=== PATIENT | female | born 1945 | race Caucasian/White ===

== ENCOUNTER 2024-04-02 13:16 | Emergency (ER) | payer MEDICARE, MEDICAID, SELFPAY ==
[2024-04-02] VITALS (12 sets, daily range): BP systolic 93–143; BP diastolic 22–79; PULSE 76–102; RESP 13–16; TEMP 36.7–37.1; O2SAT 87–100; BMI 19.3
--- NOTE | 2024-04-02 13:30 | EKG_ITS ---
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
--- NOTE | 2024-04-02 13:30 | XR_ITS ---
Examination: CT cervical spine without contrast 2-D sagittal reconstructions 2-D coronal reconstructions 3-D reconstructions. Exam date and time:April 02, 2024 1355 hrs. Indications: Ground-level fall today with injury to the neck, neck pain CTDI:vol (mGy) 6.95 DLP: (mGycm) 140 Technique: Multiple 2 mm axial sections of the cervical spine have been obtained. The coronal and sagittal reconstructions have been obtained. 3-D reconstructions have been obtained. Low dose protocols were performed. One or more of the following dose reduction techniques were used; automated exposure control, adjustment of the mA and/or KV according to patient size, use of iterative reconstruction technique. Findings: Axial sections demonstrate intact base of the skull. C1 exhibit satisfactory relationship to the odontoid. No acute cervical vertebral body fracture seen. Alignment posterior spinous processes satisfactory. Impression: No acute cervical fracture. Acute sphenoid sinusitis
--- NOTE | 2024-04-02 13:30 | XR_ITS ---
Examination: CT brain head without contrast. 2-D sagittal coronal reconstructions Date and time of exam:April 02, 2024 1353 hrs. Indications: Ground-level fall today with injury to the head followed by head pain weakness CTDI: vol (mGy):40.7 DLP: (mGycm):1057 Technique: Multiple CT axial sections of the brain have been obtained, 5 mm slice thickness. Contrast has not been administered. 2-D sagittal, coronal reconstructions have been obtained Low dose protocols were performed. One or more of the following dose reduction techniques were used; automated exposure control, adjustment of the mA and/or KV according to patient size, use of iterative reconstruction technique. Findings: No significant ventricular enlargement. Intra-axial or extra-axial hemorrhage density is not seen. No mass effect or midline shift Basal cisterns are not remarkable. Fourth ventricle is midline. Cranial vault intact. Significant sinusitis Impression: Negative for acute hemorrhage, mass effect or midline shift
--- NOTE | 2024-04-02 13:30 | XR_ITS ---
Examination:Left hip AP, lateral, AP pelvis 3 views Technique: Hip AP lateral, AP pelvis, 3 views Exam date and time:April 02, 2024 1405 hrs. Indications: Patient fell today with injury to the left hip, left hip pain Findings: Limited study, the entire hip is not included on 2 of the films There is no true lateral view of the abdomen There is severe osteopenia and chronic appearing deformity of the left anterior pelvic rami but clinical correlation advised Impression: Limited study Severe osteopenia No definite acute left hip fracture Strongly recommend 1 day follow-up proper technique left hip films if pain persists.
--- NOTE | 2024-04-02 13:32 | PD.EDADULT ---
ED General RME/HPI General Chief complaint: Weakness Stated complaint: WEAKNESS Time Seen by Provider: 04/02/24 13:30 Arrival date/time: 04/02/24 13:16 CC: Decreased appetite decreased activity HPI patient presents the ER via EMS report hypotensive tachycardia hypoxemic however that when the patient is assessed the patient is complaining of left hip pain after a fall yesterday afternoon. Patient presents from assisted care facility. Related Data Home Medications ?Medication ?Instructions ?Recorded ?Confirmed donepezil 5 mg tablet 5 mg PO HS 10/01/22 08/30/23 fluticasone propionate 50 1 spray intranasal DAILY 10/01/22 08/30/23 mcg/actuation nasal spray,suspension quetiapine 100 mg tablet 100 mg PO HS 10/01/22 08/30/23 venlafaxine 150 mg 150 mg PO QDAY 10/01/22 08/30/23 capsule,extended release 24 hr oxycodone-acetaminophen 10 mg-325 1 tab PO Q8HR PRN Pain, Moderate 05/23/23 08/30/23 mg tablet famotidine 20 mg tablet 20 mg PO QAM 05/29/23 08/30/23 ipratropium 0.5 mg-albuterol 3 mg 3 ml inhalation TID 05/29/23 08/30/23 (2.5 mg base)/3 mL nebulization soln Allergies Allergy/AdvReac Type Severity Reaction Status Date / Time amitriptyline [From Elavil] Allergy Verified 10/22/23 16:29 fentanyl Allergy Verified 10/22/23 16:29 Review of Systems Review of Systems Narrative Review of Systems: GEN: No fever, no chills, no weight loss EYES: No discharge, no visual changes, no pain HEENT: No ear pain, no congestion, no sore throat PULM: No shortness of breath, no cough, no congestion CV: No chest pain, no dyspnea on exertion, no palpitations GI: No nausea, no vomiting, no diarrhea, no pain, no constipation : No frequency, no urgency, no dysuria MUSC/SKEL: No joint pain, no back pain SKIN: No rash PSYCH: No hallucinations, no depression HEME/LYMPH: No easy bleeding or bruising tendencies NEURO: + weakness, no headache Past Medical History Past Medical History NEUROLOGIC: Positive Dementia; Negative Seizures CARDIAC: Negative Cardiac Disorders or Congestive Heart Failure RESPIRATORY: Negative Chronic Obstructive Pulmonary Disease (COPD) or Asthma GASTROINTESTINAL: Positive Gastrointestinal Disorders GENITOURINARY: Negative Renal Disease ENDOCRINE: Negative Endocrine Disorders, Diabetes Mellitus Type 1 or Diabetes Mellitus Type 2 HEMATOLOGIC: Positive Anemia; Negative Sickle Cell Disease PSYCHO/SOCIAL: Positive Schizophrenia and Bipolar Disorder OTHER HISTORY: Negative Blood Transfusions, Blood Transfusion Reaction or Anesthesia Reactions Family History FAMILY HISTORY: Negative Family Cardiac Disorders Social History SMOKING STATUS: Never smoker ED Exam Narrative Physical exam: [General: Thin, deconditioned, but not emaciated. In mild discomfort but not in any acute distress Head normocephalic no step-off hematoma induration ulceration or crepitus HEENT: Eyes pupils are PERRLA EOMs are intact no facial asymmetry ecchymosis mouth, pink dry membranes uvula is midline swallow symmetrical phonation is normal all other subsystems of HEENT are within acceptable limits Neck is supple nontender no JVD Chest equal chest rise nontender to palpation Respiratory: Clear to auscultation no wheezes crackles or rubs CV: Rate rhythm is regular no murmurs rubs or clicks Abdomen is soft nontender no masses positive bowel sounds all 4 quadrants Back: No CVA tenderness no spinous process tenderness from cervical spine thoracic and lumbar spine Skin: Intact no petechiae rash induration ulceration or crepitus Extremities: No pain with palpation and pelvic squeeze of the left pelvis. Pain with extension of both lower extremities. Moving all extremities weakly against resistance cap refill less than 2 seconds neurosensory intact Neuro: Awake alert oriented x2, person and place, Glascow coma 15 no focal deficits] Course Quality Measures none Orders Category Date Time Status EKG (ED ONLY) *Do not use* NOW Care 04/02/24 13:30 Completed In and Out Catheter X1 Care 04/02/24 15:[address] cervical spine wo con Stat Exams 04/02/24 13:[address] head/brain wo con Stat Exams 04/02/24 13:30 Completed EKG (ED Only) Stat Exams 04/02/24 13:30 Draft XR hip LT w pelvis 2-3V Stat Exams 04/02/24 13:30 Completed B-Type Natriuretic Peptide Stat Lab 04/02/24 13:47 Completed CBC Stat Lab 04/02/24 13:47 Completed Comprehensive Metabolic Panel Stat Lab 04/02/24 13:47 Completed Drug Screen,Urine Stat Lab 04/02/24 15:08 Completed LDH (Lactate Dehydrogenase) Stat Lab 04/02/24 13:47 Completed Magnesium Stat Lab 04/02/24 13:47 Completed Partial Thromboplastin Time Stat Lab 04/02/24 13:47 Completed Prothrombin Time with INR Stat Lab 04/02/24 13:47 Completed Troponin I Stat Lab 04/02/24 13:47 Completed Urinalysis Stat Lab 04/02/24 15:03 Completed Vital Signs Vital signs: Vital Signs Temperature 98.0 F 04/02/24 13:18 Pulse Rate 76 04/02/24 13:18 Respiratory Rate 14 04/02/24 13:18 Blood Pressure 117/22 L 04/02/24 13:18 Pulse Oximetry (%) 96 04/02/24 13:18 Oxygen Delivery Method Nasal Cannula 04/02/24 13:18 Oxygen Flow Rate 6 04/02/24 13:18 [facility] Patient data External records reviewed:: [facility] previous records and EMS form Clinical information provided by:: patient and EMS Social determinants that could affect healthcare access:: none Patient has the following chronic illnesses:: Muscle atrophy reflux disease schizoaffective disorder depression dementia iron deficiency anemia How is presenting disease/condition affected by chronic disease/condition?: uneffected by Evaluation data The following diagnostics were reviewed and interpreted by me:: lab results and radiology exam(s) Lab and/or radiology exams considered but not ordered:: CBC shows a no acute leukocytosis anemia thrombocytopenia CMP shows no acute electrolyte imbalances renal impairment transaminitis or T. bili elevation Urine is negative Troponin is negative BNP is negative CT head and C-spine is interpreted by me read by radiology as negative for any acute finding Urine is negative for UTI X-ray of the pelvis is negative for any acute finding. But there is significant osteopenia as interpreted by me read by radiology. Interpretation Summary: There is no acute finding requires emergent or immediate intervention. At this time patient be discharged home with generalized weakness Medications Medications considered but not ordered:: None Medication administrations:: None Consultations Consultation(s) initiated? (list below): No Diagnosis Differential Diagnosis ED Complaint MDM: Hip fracture closed head injury dehydration Most likely diagnosis given after review of the tests above:: Weakness status post fall Admission Indicated Admission indicated?: not indicated Explain why admission is indicated or not indicated:: Stable for outpatient follow-up Admission Request Was there a request for admission?: No Disposition Plan Disposition Plan: Discharge Discharge Attestation Discharge Attestation: The patient and all family members were given an opportunity to ask questions and understood the discharge instructions. Discharge instructions specifically effects, indications for sooner follow up or return to the emergency department, and the expected course of current diagnosis. Patient condition: Stable Medical Decision Making Differential Diagnosis Differential Diagnosis: Hip fracture closed head injury dehydration Lab Data 04/02/24 13:47 04/02/24 13:47 Labs: Lab Results 04/02/24 04/02/24 04/02/24 Range/Units 13:47 15:03 15:08 WBC 5.4 (3.6-11.0) Thou/mm3 RBC 4.43 (4.00-5.20) Miln/mm3 Hgb 13.3 (12.0-16.0) g/dL Hct 40.6 (36.0-46.0) % MCV 92 (80-100) fL MCH 30.0 (25.0-35.0) pg MCHC 32.8 (31.0-37.0) g/dl RDW Std Deviation 46.2 (36.4-46.3) fL Plt Count 195 (140-440) Thou/mm3 Neut % (Auto) 69 (37-80) % Lymph % (Auto) 20 (10-50) % [place] % (Auto) 10 (0-12) % Eos % (Auto) 0 (0-10) % Baso % (Auto) 0 (0-2.5) % Neut # (Auto) 3.8 (1.8-7.7) Thou/mm3 Lymph # (Auto) 1.1 (1.0-4.8) Thou/mm3 [place] # (Auto) 0.5 (0.0-0.8) Thou/mm3 Eos # (Auto) 0.0 (0.0-0.5) Thou/mm3 Baso # (Auto) 0.0 (0.0-0.2) Thou/mm3 Immature Gran # (Auto) 0.02 H (0.00-0.00) Thou/mm3 Absolute Nucleated RBC 0.00 (0.00-0.00) Thou/mm3 Immature Gran % 0 (0-0) % Nucleated RBC % 0 (0) /100 WBC PT 11.3 (9.0-12.2) Seconds INR 1.0 (0.9-1.3) APTT 27.4 (22.0-36.0) Seconds Sodium 137 (136-145) mMol/L Potassium 4.2 (3.4-5.1) mMol/L Chloride 101 (98-107) mMol/L Carbon Dioxide 27.1 (20.0-31.0) mMol/L Anion Gap 9 (7-16) BUN 17 (9-23) mg/dL Creatinine 1.0 (0.6-1.3) mg/dL Estim Creat Clear Calc 40.5 L (>60) mL/min eGFR 58 L (60 - ) See Note BUN/Creatinine Ratio 17 (12-20) Ratio Glucose 85 (74-106) mg/dL Calculated Osmolality 274 L (275-295) Calcium 8.8 (8.3-10.6) mg/dL Corrected Calcium 8.8 (8.5-10.1) mg/dL Magnesium 2.0 (1.6-2.6) mg/dL Total Bilirubin 0.4 (0.3-1.2) mg/dL AST 10 (0-34) U/L ALT 17 (10-49) U/L Alkaline Phosphatase 88 (46-116) U/L Lactate Dehydrogenase 221 (120-246) U/L Troponin I < 0.020 (0.0-0.045) ng/mL B-Natriuretic Peptide 44 (0-100) pg/mL Total Protein 6.8 (5.7-8.2) gm/dL Albumin 4.1 (3.4-4.8) gm/dL Globulin 2.7 (2.3-3.5) gm/dL Albumin/Globulin Ratio 1.5 (1.2-2.2) Ur Collection Type Clean Catch Urine Color Yellow (Lt Yel-Yel) Urine Clarity Clear (Clear/Hazy) Urine pH 5.5 (5.0-7.0) Ur Specific [place] 1.031 (1.001-1.035) Urine Protein 1+ A (Neg - Trace) Urine Glucose (UA) Negative (Negative) Urine Ketones 2+ A (Negative) Urine Blood 1+ A (Negative) Urine Nitrite Negative (Negative) Urine Bilirubin Negative (Negative) Urine Urobilinogen (Auto) Negative (0.0-1.0) mg/dL Ur Leukocyte Esterase Negative (Negative) Urine RBC 4 H (0-3) /hpf Urine WBC < 1 (0-5) /hpf Ur Squamous Epith Cells 0 (0-5) /hpf Urine Bacteria None (None) Urine Opiates Screen Negative (Negative) Urine Fentanyl Screen Negative (Negative) Ur Barbiturates Screen Negative (Negative) U Amphetamin/Meth Scrn Negative (Negative) U Benzodiazepines Scrn Negative (Negative) U Cocaine Metab Screen Negative (Negative) U Marijuana (THC) Screen Negative (Negative) Discharge Plan Plan Patient Disposition: HOME (Self Care) Patient condition on transfer: Stable Prescriptions/Referrals Prescriptions/Med Rec: No Action oxycodone-acetaminophen 10-325 mg tablet 1 tab PO Q8HR PRN (Reason: Pain, Moderate) ipratropium-albuterol 0.5 mg-3 mg(2.5 mg base)/3 mL solution for nebulization 3 ml INHALATION TID Rx Instructions: for SOB/wheeze famotidine 20 mg tablet 20 mg PO QAM donepezil 5 mg tablet 5 mg PO HS venlafaxine 150 mg capsule,extended release 24hr 150 mg PO QDAY quetiapine 100 mg tablet 100 mg PO HS fluticasone propionate 50 mcg/actuation [place],Suspension 1 spray INTRANASAL DAILY Rx Instructions: administer into each nostril Referrals: No Primary/Family,Physician [Primary Care Provider] - In 1 week Problem List Clinical Impression: Fall, Weakness Patient/Caregiver Discharge Instructions Education Materials: Fall Prevention Assessing Risk, ED Weakness (Uncertain Cause) Additional Instructions: Encourage plenty of food and fluids follow-up with your primary care doctor. Print Language: Azerbaijani Stand Alone Forms: Jody Award Info., Patient Portal Info Letter, Work/School Release PA/EDUCATIONAL ASSISTANT TEACHER Supervising Physician PA/EDUCATIONAL ASSISTANT TEACHER Supervising Physician: Miguel Singletary ENP
--- NOTE | 2024-04-02 13:50 | PC.NURSE ---
PT TO CT
[2024-04-02 14:04] LABS: Basophils % (Auto) 0 % (0-2.5); Eosinophils % (Auto) 0 % (0-10); Hematocrit 40.6 % (36.0-46.0); Hemoglobin 13.3 g/dL (12.0-16.0); Immature Granulocytes % (Auto) 0 % (0-0); Immature Granulocytes Auto 0.02 Thou/mm3 (0.00-0.00); Lymphocytes # (Auto) 1.1 Thou/mm3 (1.0-4.8); Lymphocytes % (Auto) 20 % (10-50); Mean Corpuscular HGB Conc 32.8 g/dl (31.0-37.0); Mean Corpuscular Volume 92 fL (80-100); Monocytes # (Auto) 0.5 Thou/mm3 (0.0-0.8); Monocytes % (Auto) 10 % (0-12); Neutrophils # (Auto) 3.8 Thou/mm3 (1.8-7.7); Neutrophils % (Auto) 69 % (37-80); Nucleated Red Blood Cell % 0 /100 WBC (0); Platelet Count 195 Thou/mm3 (140-440); RDW Standard Deviation 46.2 fL (36.4-46.3); Red Blood Count 4.43 Miln/mm3 (4.00-5.20); White Blood Count 5.4 Thou/mm3 (3.6-11.0)
--- NOTE | 2024-04-02 14:17 | PC.NURSE ---
X-RAY AT BEDSIDE
[2024-04-02 14:20] LABS: Partial Thromboplastin Time 27.4 Seconds (22.0-36.0); Prothrombin Time 11.3 Seconds (9.0-12.2)
[2024-04-02 14:24] LABS: Alanine Aminotransferase 17 U/L (10-49); Albumin, Serum 4.1 gm/dL (3.4-4.8); Albumin/Globulin Ratio 1.5 (1.2-2.2); Alkaline Phosphatase 88 U/L (46-116); Anion Gap 9 (7-16); Aspartate Amino Transferase 10 U/L (0-34); BUN/Creatinine Ratio 17 Ratio (12-20); Bilirubin,Total 0.4 mg/dL (0.3-1.2); Blood Urea Nitrogen 17 mg/dL (9-23); Calcium 8.8 mg/dL (8.3-10.6); Calcium (Corrected) 8.8 mg/dL (8.5-10.1); Carbon Dioxide 27.1 mMol/L (20.0-31.0); Chloride 101 mMol/L (98-107); Estimated Creatinine Clearance 40.5 mL/min (>60); Globulin 2.7 gm/dL (2.3-3.5); Glucose 85 mg/dL (74-106); LDH (Lactate Dehydrogenase) 221 U/L (120-246); Osmolality,Calculated 274 (275-295); Potassium 4.2 mMol/L (3.4-5.1); Sodium 137 mMol/L (136-145); Total Protein 6.8 gm/dL (5.7-8.2); Troponin I < 0.020 ng/mL (0.0-0.045); eGFR 58 See Note
[2024-04-02 15:28] LABS: Collection Type, Urine Clean Catch; Squamous Epithelial Cell,Urine 0 /hpf (0-5)
[2024-04-02 15:37] LABS: B-Type Natriuretic Peptide 44 pg/mL (0-100)
[2024-04-02 16:09] LABS: Bilirubin,Urine Negative (Negative); Blood,Urine 1+ (Negative); Clarity,Urine Clear (Clear/Hazy); Color,Urine Yellow (Lt Yel-Yel); Glucose, Urine Negative (Negative); Ketones,Urine 2+ (Negative); Leukocyte Esterase,Urine Negative (Negative); Nitrite,Urine Negative (Negative); PH,Urine 5.5 (5.0-7.0); Protein,Urine 1+ (Neg - Trace); RBC,Urine 4 /hpf (0-3); Specific Gravity,Urine 1.031 (1.001-1.035); Urobilinogen,Urine Negative mg/dL (0.0-1.0); WBC,Urine < 1 /hpf (0-5)
[2024-04-02 16:15] LABS: Amphetamine/Methamp Scrn,U Negative (Negative); Barbiturate Screen,Urine Negative (Negative); Benzodiazepines Screen,Urine Negative (Negative); Benzoylecgonine Screen, Ur Negative (Negative); Fentanyl Screen,Urine Negative (Negative); Opiate Screen,Urine Negative (Negative); THC Screen,Urine Negative (Negative)
--- NOTE | 2024-04-02 17:35 | XR_ITS ---
Examination: AP chest single view Technique one AP portable semiupright chest single view Exam date and time: April 02, 2024 1746 hrs. Comparison May 25, 2023 Indications: Coughing beginning one week ago. Findings: Normal heart size No lobar pneumonia No pulmonary edema Prominent osteopenia Impression: No lobar pneumonia or pulmonary edema
--- NOTE | 2024-04-02 17:35 | PC.NURSE ---
spoke with pt's daughter Delfina. daughter requesting that pt have chest x-ray. shana carbajal informed. chest x-ray ordered
--- NOTE | 2024-04-02 18:56 | PC.NURSE ---
REPORT GIVEN TO THIEN AT [facility]
== END 2024-04-02 20:32 | disposition home or self-care (01) ==
PROVIDERS: Registered Nurse General Practice; Emergency Provider Emergency Medicine
DX: R53.1 Weakness (principal); S19.9XXA Unspecified injury of neck, initial encounter; S09.90XA Unspecified injury of head, initial encounter; S79.912A Unspecified injury of left hip, initial encounter; R05.9 Cough, unspecified; M85.88 Other specified disorders of bone density and structure, other site; W19.XXXA Unspecified fall, initial encounter
CPT/HCPCS: 51701; 36415; 70450; 71045; 72125; 73502; 80053; 80307; 81001; 83615; 83735; 83880; 84484; 85025; 85610; 85730; 93005; 99284

== ENCOUNTER 2024-04-12 11:15 | Inpatient (IN) | payer MEDICARE, MEDICAID, SELFPAY ==
--- NOTE | 2024-04-12 11:24 | XR_ITS ---
Examination: AP chest single view Technique one AP portable semiupright chest single view Exam date and time: April 12, 2024 12:53 PM INDICATIONS: Failure to thrive shortness of breath today FINDINGS: Normal heart size Epidural pain leads No pneumonia or pulmonary edema Prominent osteopenia IMPRESSION: No pneumonia or pulmonary edema
--- NOTE | 2024-04-12 11:24 | EKG_ITS ---
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
--- NOTE | 2024-04-12 11:25 | EDNOTE_ITS ---
<Statement entered by Radha Silva MD - 04/13/24 15:27> As co-signing physician, I was present and available for consult prn. I concur with the plan and care as documented by the midlevel provider. ED General RME/HPI General Chief complaint: Weakness Stated complaint: WEAKNESS Time Seen by Provider: 04/12/24 11:18 Arrival date/time: 04/12/24 11:15 RME / HPI RME / HPI narrative: 79-year-old female patient with significant history of advanced dementia, hypertension, nonambulatory, was [facility] for failure to thrive. According to the EMS, patient's been having poor appetite, worsening generalized body weakness, has been ongoing for at least 2 weeks. According to EMS, patient's been eating only 15% of the food or drink that is offered every time. On my evaluation initial encounter with the patient, patient told me that she feels fine, she is not having any complaints. But seems confused. Related Data Home Medications ?Medication ?Instructions ?Recorded ?Confirmed donepezil 5 mg tablet 5 mg PO HS 10/01/22 08/30/23 fluticasone propionate 50 1 spray intranasal DAILY 10/01/22 08/30/23 mcg/actuation nasal spray,suspension quetiapine 100 mg tablet 100 mg PO HS 10/01/22 08/30/23 venlafaxine 150 mg 150 mg PO QDAY 10/01/22 08/30/23 capsule,extended release 24 hr oxycodone-acetaminophen 10 mg-325 1 tab PO Q8HR PRN Pain, Moderate 05/23/23 08/30/23 mg tablet famotidine 20 mg tablet 20 mg PO QAM 05/29/23 08/30/23 ipratropium 0.5 mg-albuterol 3 mg 3 ml inhalation TID 05/29/23 08/30/23 (2.5 mg base)/3 mL nebulization soln Allergies Allergy/AdvReac Type Severity Reaction Status Date / Time amitriptyline [From Elavil] Allergy Verified 10/22/23 16:29 fentanyl Allergy Verified 10/22/23 16:29 Review of Systems Review of Systems Narrative Review of Systems: Review of system reviewed and within normal limits except mentioned in HPI ED Exam Narrative Physical exam: VITAL SIGNS: Reviewed. GENERAL APPEARANCE: Alert and interactive, follows commands, no acute distress,, cachectic HEAD AND FACE: Non-traumatic. ENT: PERRL, pink conjunctivitis, eyelid no trauma, Mucous membrane dry, cracked lips NECK: Supple, nontender, no nuchal rigidity. CHEST: No tenderness, no crepitus, no paradoxical movement, no retractions. LUNGS: Clear, well ventilated, symmetric, no rales, no wheezing, no ronchi, no stridor, good breath sounds bilaterally. HEART: Regular rate, regular rhythm, no murmur, no gallops. ABDOMEN: Soft, positive bowel sounds, nondistended, no guarding, nontender, no rebound, no masses, RECTAL: Deferred. GENITAL: Deferred. NEUROLOGICAL: Gross motor function intact sensory function intact, Appropriate for age. MUSCULOSKELETAL: low back nontender, full range of motion. EXTREMITIES: Nontender, full range of motion. SKIN: Color pink, dry, no rash, no lacerations, no abrasions, no contusions. LYMPHATICS: Deferred. Course Quality Measures none Orders Category Date Time Status COVID-19 Screening Questionnaire NOW Care 04/12/24 14:30 Active Decision to Admit X1 Care 04/12/24 14:30 Active EKG (ED ONLY) *Do not use* NOW Care 04/12/24 11:24 Completed In and Out Catheter X1 Care 04/12/24 11:24 Active Consult to Gastroenterology Stat Cons 04/12/24 13:47 Ordered EKG (ED Only) Stat Exams 04/12/24 11:24 Draft XR chest 1V Stat Exams 04/12/24 11:24 Completed CBC Stat Lab 04/12/24 11:42 Completed Comprehensive Metabolic Panel Stat Lab 04/12/24 11:42 Completed Lactate (Lactic Acid) Stat Lab 04/12/24 11:42 Results Partial Thromboplastin Time Stat Lab 04/12/24 11:42 Completed Procalcitonin Stat Lab 04/12/24 11:42 Completed Prothrombin Time with INR Stat Lab 04/12/24 11:42 Completed UA, C/S IF [Urinalysis, C/S if Indicated] Stat Lab 04/12/24 11:25 Ordered Sodium Chloride 0.9% 1000 ml [Ns] 1,000 ml Med 04/12/24 12:43 Discontinued IV 999 mls/hr Vital Signs Vital signs: Vital Signs Temperature 97.5 F 04/12/24 11:37 Pulse Rate 98 04/12/24 11:37 Respiratory Rate 20 04/12/24 11:37 Blood Pressure 100/65 04/12/24 11:37 Pulse Oximetry (%) 99 04/12/24 11:37 Oxygen Delivery Method Room Air 04/12/24 11:37 [facility] Patient data External records reviewed:: [facility] previous records Clinical information provided by:: patient and EMS Social determinants that could affect healthcare access:: none Patient has the following chronic illnesses:: Hypertension, dementia, How is presenting disease/condition affected by chronic disease/condition?: e xacerbated by Evaluation data The following diagnostics were reviewed and interpreted by me:: lab results, radiology exam(s) and EKG tracing(s) Lab and/or radiology exams considered but not ordered:: None Interpretation Summary: EKG as interpreted by me showed sinus rhythm, ventricular rate of 96 bpm, no ST segment elevation depression noted. Laboratory workup all came back unremarkable. Except for lactic acid of 2.3. Medications Medications considered but not ordered:: None Medication administrations:: Medication Administration History Discontinued Medications Sodium Chloride (Ns) 1,000 mls @ 999 mls/hr IV .Q1H1M ONE Stop: 04/12/24 13:43 Last Admin: 04/12/24 14:16 Dose: 999 mls/hr Documented By: IV fluids for hydration Consultations Consultation(s) initiated? (list below): Yes Consultation #1 (Physician, Specialty, Details): I consulted Dr. Frankel, GI specialist on-call, thank you Dr. Frankel Diagnosis Differential Diagnosis ED Complaint MDM: Failure to thrive, dehydration, G-tube placement Most likely diagnosis given after review of the tests above:: Failure to thrive, for G-tube placement Admission Indicated Admission indicated?: indicated Explain why admission is indicated or not indicated:: For G-tube placement, failure to thrive Admission Request Was there a request for admission?: Yes Admission Attestation Admission request attestation: Discussed case with [Dr. Ontiveros] from Hospitalist service regarding admission. Discussed patients ED course, exam findings, labs, and radiology results. The Hospitalist [agrees] to accept the patient for admission. Disposition Plan Disposition Plan: Admit Medical Decision Making [facility] Narrative MDM Narrative: 79-year-old female patient with significant history of advanced dementia, hypertension, nonambulatory, was sent to us from jail for failure to thrive. According to the EMS, patient's been having poor appetite, worsening generalized body weakness, has been ongoing for at least 2 weeks. According to EMS, patient's been eating only 15% of the food or drink that is offered every time. On my evaluation initial encounter with the patient, patient told me that she feels fine, she is not having any complaints. But seems confused. Patient's workup today all came back unremarkable. Patient case discussed with Dr. Frankel, GI specialist on-call, and thank you Dr. Frankel, patient will be admitted for G-tube placement. In the morning Differential Diagnosis Differential Diagnosis: Failure to thrive, dehydration, G-tube placement Lab Data 04/12/24 11:42 04/12/24 11:42 Labs: Lab Results 04/12/24 Range/Units 11:42 WBC 9.2 (3.6-11.0) Thou/mm3 RBC 4.89 (4.00-5.20) Miln/mm3 Hgb 14.8 (12.0-16.0) g/dL Hct 46.4 H (36.0-46.0) % MCV 95 (80-100) fL MCH 30.3 (25.0-35.0) pg MCHC 31.9 (31.0-37.0) g/dl RDW Std Deviation 47.6 H (36.4-46.3) fL Plt Count 296 D (140-440) Thou/mm3 Neut % (Auto) 66 (37-80) % Lymph % (Auto) 24 (10-50) % [place] % (Auto) 9 (0-12) % Eos % (Auto) 1 (0-10) % Baso % (Auto) 0 (0-2.5) % Neut # (Auto) 6.1 (1.8-7.7) Thou/mm3 Lymph # (Auto) 2.2 (1.0-4.8) Thou/mm3 [place] # (Auto) 0.8 (0.0-0.8) Thou/mm3 Eos # (Auto) 0.1 (0.0-0.5) Thou/mm3 Baso # (Auto) 0.0 (0.0-0.2) Thou/mm3 Immature Gran # (Auto) 0.03 H (0.00-0.00) Thou/mm3 Absolute Nucleated RBC 0.00 (0.00-0.00) Thou/mm3 Immature Gran % 0 (0-0) % Nucleated RBC % 0 (0) /100 WBC PT 11.8 (9.0-12.2) Seconds INR 1.1 (0.9-1.3) APTT 24.8 (22.0-36.0) Seconds Sodium 147 H (136-145) mMol/L Potassium 4.3 (3.4-5.1) mMol/L Chloride 106 (98-107) mMol/L Carbon Dioxide 30.9 (20.0-31.0) mMol/L Anion Gap 10 (7-16) BUN 24 H (9-23) mg/dL Creatinine 0.8 (0.6-1.3) mg/dL Estim Creat Clear Calc Not Performed. eGFR > 60 (60 - ) See Note BUN/Creatinine Ratio 30 H (12-20) Ratio Glucose 109 H (74-106) mg/dL Calculated Osmolality 297 H (275-295) Lactic Acid 2.3 H (0.4-2.0) mMol/L Calcium 10.0 (8.3-10.6) mg/dL Corrected Calcium 10.0 (8.5-10.1) mg/dL Total Bilirubin 0.9 (0.3-1.2) mg/dL AST 31 (0-34) U/L ALT 22 (10-49) U/L Alkaline Phosphatase 81 (46-116) U/L Total Protein 7.3 (5.7-8.2) gm/dL Albumin 4.3 (3.4-4.8) gm/dL Globulin 3.0 (2.3-3.5) gm/dL Albumin/Globulin Ratio 1.4 (1.2-2.2) Procalcitonin 0.07 (0.0-0.49) ng/ml Discharge Plan Plan Patient Disposition: Admit Acute Care w/in Hospital Disposition Comment: Stable Prescriptions/Referrals Prescriptions/Med Rec: No Action oxycodone-acetaminophen 10-325 mg tablet 1 tab PO Q8HR PRN (Reason: Pain, Moderate) ipratropium-albuterol 0.5 mg-3 mg(2.5 mg base)/3 mL solution for nebulization 3 ml INHALATION TID Rx Instructions: for SOB/wheeze famotidine 20 mg tablet 20 mg PO QAM donepezil 5 mg tablet 5 mg PO HS venlafaxine 150 mg capsule,extended release 24hr 150 mg PO QDAY quetiapine 100 mg tablet 100 mg PO HS fluticasone propionate 50 mcg/actuation [place],Suspension 1 spray INTRANASAL DAILY Rx Instructions: administer into each nostril Referrals: No Primary/Family,Physician [Primary Care Provider] - In 1 week Problem List Clinical Impression: Adult failure to thrive, Encounter for gastrojejunal tube placement Patient/Caregiver Discharge Instructions Print Language: Australian Stand Alone Forms: Jody Award Info., Patient Portal Info Letter
[2024-04-12 11:37] VITALS: BP 100/65; PULSE 98; RESP 20; TEMP 36.4; O2SAT 99
[2024-04-12 11:53] LABS: Basophils % (Auto) 0 % (0-2.5); Eosinophils # (Auto) 0.1 Thou/mm3 (0.0-0.5); Eosinophils % (Auto) 1 % (0-10); Hematocrit 46.4 % (36.0-46.0); Hemoglobin 14.8 g/dL (12.0-16.0); Immature Granulocytes % (Auto) 0 % (0-0); Immature Granulocytes Auto 0.03 Thou/mm3 (0.00-0.00); Lymphocytes # (Auto) 2.2 Thou/mm3 (1.0-4.8); Lymphocytes % (Auto) 24 % (10-50); Mean Corpuscular HGB Conc 31.9 g/dl (31.0-37.0); Mean Corpuscular Hemoglobin 30.3 pg (25.0-35.0); Mean Corpuscular Volume 95 fL (80-100); Monocytes # (Auto) 0.8 Thou/mm3 (0.0-0.8); Monocytes % (Auto) 9 % (0-12); Neutrophils # (Auto) 6.1 Thou/mm3 (1.8-7.7); Neutrophils % (Auto) 66 % (37-80); Nucleated Red Blood Cell % 0 /100 WBC (0); Platelet Count 296 Thou/mm3 (140-440); RDW Standard Deviation 47.6 fL (36.4-46.3); Red Blood Count 4.89 Miln/mm3 (4.00-5.20); White Blood Count 9.2 Thou/mm3 (3.6-11.0)
[2024-04-12 12:06] LABS: INR 1.1 (0.9-1.3); Partial Thromboplastin Time 24.8 Seconds (22.0-36.0); Prothrombin Time 11.8 Seconds (9.0-12.2)
[2024-04-12 12:16] LABS: Alanine Aminotransferase 22 U/L (10-49); Albumin, Serum 4.3 gm/dL (3.4-4.8); Albumin/Globulin Ratio 1.4 (1.2-2.2); Alkaline Phosphatase 81 U/L (46-116); Anion Gap 10 (7-16); Aspartate Amino Transferase 31 U/L (0-34); BUN/Creatinine Ratio 30 Ratio (12-20); Bilirubin,Total 0.9 mg/dL (0.3-1.2); Blood Urea Nitrogen 24 mg/dL (9-23); Carbon Dioxide 30.9 mMol/L (20.0-31.0); Chloride 106 mMol/L (98-107); Creatinine (Component) 0.8 mg/dL (0.6-1.3); Glucose 109 mg/dL (74-106); Osmolality,Calculated 297 (275-295); Potassium 4.3 mMol/L (3.4-5.1); Procalcitonin 0.07 ng/ml (0.0-0.49); Sodium 147 mMol/L (136-145); Total Protein 7.3 gm/dL (5.7-8.2); eGFR > 60 See Note
[2024-04-12 12:24] LABS: Lactate (Lactic Acid) 2.3 mMol/L (0.4-2.0)
[2024-04-12 12:25] VITALS: PULSE 86; RESP 16; O2SAT 97
[2024-04-12] MEDS: SODIUM CHLORIDE 0.9% 1000 ML 1,000 ML 999 ML IV (14:16)
[2024-04-12 14:28] VITALS: BP 134/87; PULSE 93; RESP 16; TEMP 36.6; O2SAT 98
[2024-04-12 14:46] LABS: Reflex Lactate? Y
[2024-04-12 15:31] LABS: Lactic Acid, 3 HR 3.5 mMol/L (0.4-2.0)
[2024-04-12 16:08] LABS: Collection Type, Urine Catheter; Squamous Epithelial Cell,Urine 0 /hpf (0-5)
[2024-04-12 16:19] LABS: Bilirubin,Urine 1+ (Negative); Blood,Urine Negative (Negative); Clarity,Urine Clear (Clear/Hazy); Color,Urine Yellow (Lt Yel-Yel); Culture Indicated,Urine Not Indicated; Glucose, Urine Negative (Negative); Ketones,Urine 2+ (Negative); Leukocyte Esterase,Urine Negative (Negative); Nitrite,Urine Negative (Negative); PH,Urine 6.5 (5.0-7.0); Protein,Urine 1+ (Neg - Trace); RBC,Urine 3 /hpf (0-3); Specific Gravity,Urine 1.033 (1.001-1.035); WBC,Urine 1 /hpf (0-5)
--- NOTE | 2024-04-12 16:50 | PD.IMCONS ---
HPI Data of Consult Requesting Physician: Shannan Rachel MD Primary Care Provider: Physician No Primary/Family Consult Narrative Reason for consult: Failure to thrive History of present illness: 79 years old female asked to evaluate by the emergency room [employer] stylist assistant for this patient was failure to thrive and underlying dementia She is nonambulatory and has history of essential hypertension She was transferred from the retirement as she is not eating and losing a lot of weight cc:: cc: Shannan Rachel MD Review of Systems Review of Systems ROS Unobtainable: unobtainable due to medical condition Meds Home Medications and Allergies Home Medications ?Medication ?Instructions ?Recorded ?Confirmed ?Type donepezil 5 mg tablet 5 mg PO HS 10/01/22 08/30/23 History fluticasone propionate 50 1 spray intranasal DAILY 10/01/22 08/30/23 History mcg/actuation nasal spray,suspension quetiapine 100 mg tablet 100 mg PO HS 10/01/22 08/30/23 History venlafaxine 150 mg 150 mg PO QDAY 10/01/22 08/30/23 History capsule,extended release 24 hr oxycodone-acetaminophen 10 mg-325 1 tab PO Q8HR PRN Pain, Moderate 05/23/23 08/30/23 History mg tablet famotidine 20 mg tablet 20 mg PO QAM 05/29/23 08/30/23 History ipratropium 0.5 mg-albuterol 3 mg 3 ml inhalation TID 05/29/23 08/30/23 History (2.5 mg base)/3 mL nebulization soln Allergies Allergy/AdvReac Type Severity Reaction Status Date / Time amitriptyline [From Elavil] Allergy Verified 10/22/23 16:29 fentanyl Allergy Verified 10/22/23 16:29 Exam Vital Signs Temp Pulse Resp BP Pulse Ox O2 Del Method 97.9 F 93 16 134/87 H 98 Room Air 04/12/24 14:28 04/12/24 14:28 04/12/24 14:28 04/12/24 14:28 04/12/24 14:28 04/12/24 14:28 Routine Respiratory Exam Comments: Normal to auscultation Routine Abdominal Exam Comments: Soft nontender Results Labs 04/12/24 11:42 04/12/24 11:42 Labs: Short CBC 04/12/24 Range/Units 11:42 WBC 9.2 (3.6-11.0) Thou/mm3 Hgb 14.8 (12.0-16.0) g/dL Hct 46.4 H (36.0-46.0) % Plt Count 296 D (140-440) Thou/mm3 BMP 04/12/24 11:42 Sodium 147 H Potassium 4.3 Chloride 106 Carbon Dioxide 30.9 BUN 24 H Creatinine 0.8 Glucose 109 H Calcium 10.0 Liver Function 04/12/24 Range/Units 11:42 Total Bilirubin 0.9 (0.3-1.2) mg/dL AST 31 (0-34) U/L ALT 22 (10-49) U/L Alkaline Phosphatase 81 (46-116) U/L Albumin 4.3 (3.4-4.8) gm/dL Urine 04/12/24 Range/Units 15:49 Urine Color Yellow (Lt Yel-Yel) Urine Clarity Clear (Clear/Hazy) Urine pH 6.5 (5.0-7.0) Ur Specific [place] 1.033 (1.001-1.035) Urine Protein 1+ A (Neg - Trace) Urine Glucose (UA) Negative (Negative) Assessment and Plan Additional Assessment & Plan Additional Plan: # Failure to thrive # Abnormal weight loss # Dementia Plan Placement of percutaneous endoscopic gastrostomy tube via fiberoptic esophagogastroduodenoscopy under intravenous moderate sedation Ancef 1 g IV piggyback on-call to endoscopy N.p.o. at midnight tonight except meds Thank you very much for the opportunity to participate in the care of this patient
[2024-04-12] MEDS: VENLAFAXINE XR 37.5 MG CAPCR 150 MG PO (16:55)
[2024-04-12] MEDS: PANTOPRAZOLE INJ 40 MG VIAL IVP (16:56)
[2024-04-12 18:20] VITALS: BP 124/80; PULSE 106; RESP 14; TEMP 36.9; O2SAT 99
--- NOTE | 2024-04-12 19:04 | ESHP_ITS ---
<Statement entered by Shannan Rachel MD - 04/18/24 12:09> I reviewed above note and agree with findings and plans. I have also personally examined the patient with medicine team and went over assessment and plan with medical team including fashion styling intern and resident physician. Documentation for date of: 04/12/24 HPI History of Present Illness History of present illness: Is a 79-year-old female with PMHx of advanced vascular dementia, HTN, nonambulatory, presenting from retirement for failure to thrive. Patient is a poor historian 2/2 severe dementia, oriented to name only. Per record review and SNF report, she has had poor appetite, worsening generalized body weakness over the last 2 weeks. Associated with decreased oral intake, dysphagia and weight loss. Per SNF staff: No reported fall, trauma, fever, chills, headaches, chest pain, SOB, abdominal pain, urinary symptoms, or abnormal bleed. ED COURSE: On exam patient is frail, cachectic, generalized muscle weakness and atrophy. Awake, oriented to name only. Vitals within normal limits. CBC normal. Lactic acid 3.5, sodium 147. Admitted to inpatient service for failure to thrive with dehydration. PMHx: Advanced vascular dementia, HTN, nonambulatory PSHx: Unable to obtain MEDS: Pending med rec ALLERGIES: AMITRIPTYLINE, FENTANYL SH: Unable to obtain Exam Vital Signs Temp Pulse Resp BP Pulse Ox O2 Del Method 98.5 F 106 H 14 124/80 99 Room Air 04/12/24 18:20 04/12/24 18:20 04/12/24 18:20 04/12/24 18:20 04/12/24 18:20 04/12/24 18:20 Narrative Exam GENERAL * Frail, cachectic, generally weak generally female, appears in mild distress HEENT * NCAT.?SENA. Dry oral mucosa. Patent Nares NECK * Supple, nontender, no thyromegaly, no meningismus, no JVD, no step offs CHEST * RRR, no m/g/r * CTAB, no w/r/r. Symmetrical chest rise. No intercostal subcostal retraction * Atraumatic, nontender, no crepitus, symmetrical expansion. ABDOMEN * Soft, flat, nontender. No guarding/rebound tenderness/masses. * Bowel sounds presents EXTREMITIES * Nontender, no cyanosis, no edema * No edema/cyanosis.? SKIN * Warm, dry, decreased skin turgor. NEUROMUSCULAR * No lumbar or midline, no CVA, no paraspinal muscle spasm or tenderness. * Moves all 4 extremities well, with full ROM and good CSM. * No focal neurologic deficits. PSYCHIATRY * Appears confused, not cooperative, denying further physical exam Results: Labs 04/12/24 11:42 04/12/24 11:42 Labs: Short CBC 04/12/24 Range/Units 11:42 WBC 9.2 (3.6-11.0) Thou/mm3 Hgb 14.8 (12.0-16.0) g/dL Hct 46.4 H (36.0-46.0) % Plt Count 296 D (140-440) Thou/mm3 BMP 04/12/24 11:42 Sodium 147 H Potassium 4.3 Chloride 106 Carbon Dioxide 30.9 BUN 24 H Creatinine 0.8 Glucose 109 H Calcium 10.0 Liver Function 04/12/24 Range/Units 11:42 Total Bilirubin 0.9 (0.3-1.2) mg/dL AST 31 (0-34) U/L ALT 22 (10-49) U/L Alkaline Phosphatase 81 (46-116) U/L Albumin 4.3 (3.4-4.8) gm/dL Urine 04/12/24 Range/Units 15:49 Urine Color Yellow (Lt Yel-Yel) Urine Clarity Clear (Clear/Hazy) Urine pH 6.5 (5.0-7.0) Ur Specific [place] 1.033 (1.001-1.035) Urine Protein 1+ A (Neg - Trace) Urine Glucose (UA) Negative (Negative) Quality Measures Quality Measures none Advance care planning discussed with:: patient Medications Home Medications and Allergies Home Medications ?Medication ?Instructions ?Recorded ?Confirmed ?Type donepezil 5 mg tablet 5 mg PO HS 10/01/22 08/30/23 History fluticasone propionate 50 1 spray intranasal DAILY 10/01/22 08/30/23 History mcg/actuation nasal spray,suspension quetiapine 100 mg tablet 100 mg PO HS 10/01/22 08/30/23 History venlafaxine 150 mg 150 mg PO QDAY 10/01/22 08/30/23 History capsule,extended release 24 hr oxycodone-acetaminophen 10 mg-325 1 tab PO Q8HR PRN Pain, Moderate 05/23/23 08/30/23 History mg tablet famotidine 20 mg tablet 20 mg PO QAM 05/29/23 08/30/23 History ipratropium 0.5 mg-albuterol 3 mg 3 ml inhalation TID 05/29/23 08/30/23 History (2.5 mg base)/3 mL nebulization soln Allergies Allergy/AdvReac Type Severity Reaction Status Date / Time amitriptyline [From [facility]] Allergy Verified 10/22/23 16:29 fentanyl Allergy Verified 10/22/23 16:29 Visit Medications Acetaminophen (Acetaminophen Supp 650 Mg Supp) 650 mg [place] Q6HR PRN; Protocol PRN Reason: PAIN OR FEVER > 101 Stop: 05/12/24 15:32 Acetaminophen (Acetaminophen 325 Mg Tablet) 650 mg PO Q6H PRN PRN Reason: PAIN SCALE 1-3 (mild Stop: 05/12/24 15:37 Acetaminophen (Acetaminophen 325 Mg Tablet) 650 mg PO Q6H PRN PRN Reason: Fever >100 Stop: 05/12/24 15:37 Hydrocodone Bitart/Acetaminophen (Hydrocodone/Apap 10/325 Tab) 1 tab PO Q4HR PRN PRN Reason: PAIN SCALE 7-10 (Severe Stop: 04/17/24 15:37 Divalproex Sodium (Divalproex Sod Ec 125 Mg Tabec) 125 mg PO BID [facility] Stop: 05/12/24 20:59 Docusate Sodium (Docusate Sod 100 Mg Capsule) 100 mg PO X1 PRN; Protocol PRN Reason: Constipation Stop: 05/12/24 15:38 Fluticasone Propionate (Fluticasone Kvng [place] 0.05% 16 Gm Btl) 1 spray NASAL BID [facility] Stop: 05/12/24 20:59 Heparin Sodium (Porcine) (Heparin Sod Inj 5000 Unit/Ml Vial) 5,000 unit SC Q8HR [facility] Stop: 04/26/24 21:59 Memantine (Memantine Hcl 5 Mg Tablet) 5 mg PO BID [facility] Stop: 05/12/24 20:59 Ondansetron HCl (Ondansetron Inj 2 Mg/Ml Inj 2 Ml) 4 mg IV Q6H PRN; Protocol PRN Reason: NAUSEA OR VOMITING Stop: 05/12/24 15:32 Oxycodone/Acetaminophen (Oxycodone/Apap 5/325 Tablet) 1 tab PO Q6H PRN PRN Reason: PAIN SCALE 4-6 (Moderate Stop: 04/17/24 15:37 Pantoprazole Sodium (Pantoprazole Inj 40 Mg Vial) 40 mg IVP QDAY [facility] Stop: 05/12/24 15:44 Last Admin: 04/12/24 16:56 Dose: 40 mg Quetiapine Fumarate (Quetiapine Fumarate 25 Mg Tablet) 50 mg PO BID [facility] Stop: 05/12/24 20:59 Venlafaxine HCl (Venlafaxine Xr 37.5 Mg Capcr) 150 mg PO QDAY [place] Stop: 05/12/24 15:44 Last Admin: 04/12/24 16:55 Dose: 150 mg Discontinued Medications Sodium Chloride (Ns) 1,000 mls @ 999 mls/hr IV .Q1H1M ONE Stop: 04/12/24 13:43 Last Infusion: 04/12/24 17:59 Dose: Infused Cefazolin Sodium 1 gm/ Sodium (Chloride) 100 mls @ 200 mls/hr IV X1 ONE Stop: 04/12/24 17:23 Last Admin: 04/12/24 17:15 Dose: Not Given Cefazolin Sodium 1 gm/ Sodium (Chloride) 100 mls @ 200 mls/hr IV X1 ONE Stop: 04/12/24 17:23 Last Admin: 04/12/24 17:15 Dose: Not Given Cefazolin Sodium 1 gm/ Sodium (Chloride) 100 mls @ 200 mls/hr IV X1 ONE Stop: 04/12/24 17:23 Assessment & Plan Plan In summary: 79-year-old female with PMHx of advanced vascular dementia, HTN, nonambulatory, denting from SNF for failure to thrive and decreased oral intake. Admitted for FOT. Pending PEG tube placement. Spoke with next of kin, daughter, Delfina, evaluate goals of care. Family would like to proceed with full treatment including PEG tube placement. POLST form obtained from SNF indicates full code, full treatment including artificial feeds. Failure to thrive Protein caloric malnutrition Cachexia Presenting from SNF for decreased oral intake secondary to dysphagia. Exam shows frail female, generalized weakness and muscle wasting, signs and symptoms of dehydration. Vitals and labs unremarkable for lactic acidosis and hypernatremia as discussed below. ? Swallow eval ? Pending PEG tube placement ? Pending dietitian recommendations Lactic acidosis Hypernatremia Tachycardia In settings of acute dehydration. Sign of symptoms of dehydration on exam. Sodium 147., Lactic acid 2.3 then 3.5 after 1 L fluid. Blood pressure soft. Although she has history of hypertension. Heart rate 103. ? Started D5 half NS at 250 cc an hour ? Lactic acid q.6h. Advanced vascular dementia History of above. Noted on exam. Continue with oral meds if patient passes bedside swallow eval. Will switch to PEG tube route after PEG tube placement. ? Continue home DIVALPROEX 125 mg BID ? Continue home AMANTADINE 5 mg BID ? Continue home QUETIAPINE 50 mg BID ? Continue home VENLAFAXINE XR 150 mg QD Allergic rhinitis ? Continue home FLUTICASONE nasal spray 1 spray BID GERD ? Continue home PROTONIX 40 mg daily Health maintenance Diet: N.p.o., pending PEG tube GI prophylaxis: PROTONIX DVT prophylaxis: HEPARIN subcu Antibiotics: Not indicated CODE STATUS: Full code Disposition: Pending PEG tube placement, discharged to SNF. Patient case was discussed with attending, Dr. Shannan Rachel MD and senior residents Dr. Mclean and Dr. Ontiveros. Rafael Myers, DO PGYI Senior Resident Attestation: The patient is a 79-year-old female with significant past medical history of advanced vascular dementia, hypertension, and nonambulatory presented from retirement for failure to thrive. Patient is a poor historian, and as per chart review she had poor appetite with generalized worsening body weakness and decreased oral intake. In the ED, her vitals were stable, labs were significant for lactic acid of 3.5 and sodium 147. The patient was admitted to MedSurg unit for PEG tube placement in the setting of failure to thrive and protein energy malnutrition. Lactic acidosis likely in the setting of dehydration, received 1 L IV fluid, and was started on D5 half NS 250 cc an hour for 4 hours. Will continue to trend lactic acid every 6 hour until level trends down to less than 2. We will continue home medications for advanced vascular dementia and continue fluticasone for allergic rhinitis. GI Dr. Frankel is consulted, will proceed with PEG tube placement tomorrow morning. I discussed with and supervised the fashion styling intern physician involved in the care of this patient. I personally saw and examined the patient and discussed the assessment and plan with the entire medicine team, including my attending. I agree with the assessment and plan as documented above. Kwesi Ontiveros MD PGY2 Internal Medicine
[2024-04-12 19:49] VITALS: BMI 17.4
[2024-04-12 20:00] VITALS: BP 134/82; PULSE 96; RESP 16; TEMP 36.2; O2SAT 98
[2024-04-12] MEDS: DIVALPROEX SOD EC 125 MG TABEC PO (21:10)
[2024-04-12] MEDS: MEMANTINE HCL 5 MG TABLET PO (21:10)
[2024-04-12] MEDS: QUEtiapine FUMARATE 25 MG TABLET 50 MG PO (21:10)
[2024-04-12] MEDS: DEXTROSE 5%-0.45% NS 1,000 ML 250 ML IV (21:26)
[2024-04-12 21:28] LABS: Lactate (Lactic Acid) 2.6 mMol/L (0.4-2.0)
[2024-04-12] MEDS: HEPARIN SOD INJ 5000 UNIT/ML VIAL SC (21:41)
[2024-04-13] VITALS (12 sets, daily range): BP systolic 92–158; BP diastolic 58–97; PULSE 71–98; RESP 14–25; TEMP 36.2–36.7; O2SAT 94–100; BMI 17.4
[2024-04-13 00:22] LABS: Reflex Lactate? Y
[2024-04-13] MEDS: DEXTROSE 5%-0.45% NS 1,000 ML 100 ML IV ×2 (02:58→16:29)
[2024-04-13 06:45] LABS: Basophils % (Auto) 0 % (0-2.5); Eosinophils # (Auto) 0.1 Thou/mm3 (0.0-0.5); Eosinophils % (Auto) 2 % (0-10); Hematocrit 35.1 % (36.0-46.0); Hemoglobin 11.5 g/dL (12.0-16.0); Immature Granulocytes % (Auto) 0 % (0-0); Immature Granulocytes Auto 0.01 Thou/mm3 (0.00-0.00); Lymphocytes % (Auto) 33 % (10-50); Mean Corpuscular HGB Conc 32.8 g/dl (31.0-37.0); Mean Corpuscular Hemoglobin 30.3 pg (25.0-35.0); Mean Corpuscular Volume 92 fL (80-100); Monocytes # (Auto) 0.7 Thou/mm3 (0.0-0.8); Monocytes % (Auto) 12 % (0-12); Neutrophils # (Auto) 3.3 Thou/mm3 (1.8-7.7); Neutrophils % (Auto) 53 % (37-80); Nucleated Red Blood Cell % 0 /100 WBC (0); Platelet Count 243 Thou/mm3 (140-440); RDW Standard Deviation 45.4 fL (36.4-46.3); White Blood Count 6.2 Thou/mm3 (3.6-11.0)
[2024-04-13 06:46] LABS: Alanine Aminotransferase 25 U/L (10-49); Albumin, Serum 3.2 gm/dL (3.4-4.8); Albumin/Globulin Ratio 1.5 (1.2-2.2); Alkaline Phosphatase 66 U/L (46-116); Anion Gap 11 (7-16); Aspartate Amino Transferase 22 U/L (0-34); BUN/Creatinine Ratio 40 Ratio (12-20); Bilirubin,Total 0.9 mg/dL (0.3-1.2); Blood Urea Nitrogen 20 mg/dL (9-23); Calcium 8.5 mg/dL (8.3-10.6); Calcium (Corrected) 9.1 mg/dL (8.5-10.1); Carbon Dioxide 26.5 mMol/L (20.0-31.0); Chloride 108 mMol/L (98-107); Creatinine (Component) 0.5 mg/dL (0.6-1.3); Estimated Creatinine Clearance 73.1 mL/min (>60); Globulin 2.1 gm/dL (2.3-3.5); Glucose 85 mg/dL (74-106); Magnesium 1.6 mg/dL (1.6-2.6); Osmolality,Calculated 290 (275-295); Potassium 3.3 mMol/L (3.4-5.1); Sodium 145 mMol/L (136-145); Total Protein 5.3 gm/dL (5.7-8.2); eGFR > 60 See Note
[2024-04-13] MEDS: VENLAFAXINE XR 37.5 MG CAPCR 150 MG PO (08:28)
[2024-04-13] MEDS: PANTOPRAZOLE INJ 40 MG VIAL IVP (08:28)
[2024-04-13] MEDS: MEMANTINE HCL 5 MG TABLET PO ×2 (08:29→21:07)
[2024-04-13] MEDS: QUEtiapine FUMARATE 25 MG TABLET 50 MG PO ×2 (08:29→21:07)
[2024-04-13] MEDS: DIVALPROEX SOD EC 125 MG TABEC PO ×2 (08:29→21:06)
[2024-04-13] MEDS: POTASSIUM CHL 10 mEq IVPB 10 MEQ/100 ML BAG 100 MEQ IV ×4 (08:29→11:58)
[2024-04-13] MEDS: Magnesium Sulfate 4 GM Ivpb 4 GM/50 ML BAG IV (09:24)
[2024-04-13] MEDS: FLUTICASONE NAS SPRAY 0.05% 16 GM BTL 1 SPRAY NASAL (09:29)
--- NOTE | 2024-04-13 10:22 | PC.DIETICIAN ---
When indicated by MD, consider: Trophic feeds of Jevity 1.2 at 20 ml/hr via PEG tube by pump. Advance 10 ml every 8 hrs to goal rate of 60 ml/hr x 24 hrs. If no IV fluids, water flushes of 25 ml/hr (or per MD). Provides: 1728 kcal, 80 g prot, 1162 ml free water, 1440 ml total volume.
[2024-04-13] MEDS: HYDROcodone/APAP 10/325 TAB PO ×2 (11:10→21:35)
--- NOTE | 2024-04-13 11:18 | PC.DIETICIAN ---
Patient is at significant risk for refeeding syndrome. Pending swallow evaluation If EN is initiated, consider: 1. Jevity 1.2 at 20 ml/hr x 24 hrs (do not advance). If no IV fluids, water flushes 25 ml/hr (or per MD). 2.Thiamine 100mg/day for 7 days; provide first dose at least 30 minutes before starting nutrition. 3.Multivitamins/Minerals. 4.Daily labs for P, K, and Mg ; replace as needed. If no electrolytes disturbances after 24 hrs, advance 10 ml every 12 hrs to goal rate of 60ml/hr x 24 hrs. Continue with water flushes 25 ml/hr (or per MD). RD to remain available as requested or needed.
[2024-04-13] MEDS: POTASSIUM PHOS 15 MMOL in SODIUM CHLORIDE 0.9% 250 ML 245 ML 62.5 MMOL IV (11:59)
--- NOTE | 2024-04-13 13:24 | PCS.ST ---
Swallow Evaluation completed earlier today. Age appropriate swallow function. PEG placement pending. Can tolerate soft food items and regular liquids for pleasure eating.
[2024-04-13] MEDS: HEPARIN SOD INJ 5000 UNIT/ML VIAL SC ×2 (13:48→21:35)
--- NOTE | 2024-04-13 14:51 | ESPR_ITS ---
<Statement entered by Shannan Rachel MD - 04/18/24 12:14> I reviewed above note and agree with findings and plans. I have also personally examined the patient with medicine team and went over assessment and plan with medical team including communications intern and resident physician. Documentation for date of: 04/13/24 Subjective Subjective Interval history: No acute overnight events. I was with patient with daughter at bedside. Daughter report patient appears well compared to prior to admission. She is having normal conversation with daughter. No signs of distress. Currently n.p.o. for PEG tube placement today. Denies fever, chills, headaches, chest pain, sob, cough, GI or urinary symptoms. Exam Vital Signs Temp Pulse Resp BP Pulse Ox O2 Del Method 97.4 F 85 16 112/70 97 Room Air 04/13/24 12:00 04/13/24 12:00 04/13/24 12:00 04/13/24 12:00 04/13/24 12:00 04/13/24 12:00 Narrative Exam GENERAL * Frail, cachectic, generally weak generally female, appears in mild distress HEENT * NCAT.?SENA. Moist oral mucosa. Patent Nares NECK * Supple, nontender, no thyromegaly, no meningismus, no JVD, no step offs CHEST * RRR, no m/g/r * CTAB, no w/r/r. Symmetrical chest rise. No intercostal subcostal retraction * Atraumatic, nontender, no crepitus, symmetrical expansion. ABDOMEN * Soft, flat, nontender. No guarding/rebound tenderness/masses. * Bowel sounds presents EXTREMITIES * Nontender, no cyanosis, no edema * No edema/cyanosis.? SKIN * Warm, dry, decreased skin turgor. NEUROMUSCULAR * No lumbar or midline, no CVA, no paraspinal muscle spasm or tenderness. * Moves all 4 extremities well, with full ROM and good CSM. * No focal neurologic deficits. PSYCHIATRY * Appears confused, not cooperative, denying further physical exam Objective Labs 04/13/24 05:45 04/13/24 05:45 Labs: Laboratory Results - last 24 hr 04/12/24 04/12/24 04/12/24 15:10 15:49 21:06 WBC RBC Hgb Hct MCV MCH MCHC RDW Std Deviation Plt Count Neut % (Auto) Lymph % (Auto) [place] % (Auto) Eos % (Auto) Baso % (Auto) Neut # (Auto) Lymph # (Auto) [place] # (Auto) Eos # (Auto) Baso # (Auto) Immature Gran # (Auto) Absolute Nucleated RBC Immature Gran % Nucleated RBC % Sodium Potassium Chloride Carbon Dioxide Anion Gap BUN Creatinine Estim Creat Clear Calc eGFR BUN/Creatinine Ratio Glucose Calculated Osmolality Lactic Acid 3.5 H 2.6 H Calcium Corrected Calcium Phosphorus Magnesium Total Bilirubin AST ALT Alkaline Phosphatase Total Protein Albumin Globulin Albumin/Globulin Ratio Ur Collection Type Catheter Urine Color Yellow Urine Clarity Clear Urine pH 6.5 Ur Specific [place] 1.033 Urine Protein 1+ A Urine Glucose (UA) Negative Urine Ketones 2+ A Urine Blood Negative Urine Nitrite Negative Urine Bilirubin 1+ A Urine Urobilinogen (Auto) 4.0 Ur Leukocyte Esterase Negative Urine RBC 3 Urine WBC 1 Ur Squamous Epith Cells 0 Urine Bacteria None Ur Culture Indicated? Not Indicated 04/13/24 04/13/24 00:49 05:45 WBC 6.2 RBC 3.80 L Hgb 11.5 L D Hct 35.1 L D MCV 92 MCH 30.3 MCHC 32.8 RDW Std Deviation 45.4 Plt Count 243 D Neut % (Auto) 53 Lymph % (Auto) 33 Co[place] % (Auto) 12 Eos % (Auto) 2 Baso % (Auto) 0 Neut # (Auto) 3.3 Lymph # (Auto) 2.0 [place] # (Auto) 0.7 Eos # (Auto) 0.1 Baso # (Auto) 0.0 Immature Gran # (Auto) 0.01 H Absolute Nucleated RBC 0.00 Immature Gran % 0 Nucleated RBC % 0 Sodium 145 Potassium 3.3 L D Chloride 108 H Carbon Dioxide 26.5 Anion Gap 11 BUN 20 Creatinine 0.5 L Estim Creat Clear Calc 73.1 eGFR > 60 BUN/Creatinine Ratio 40 H Glucose 85 Calculated Osmolality 290 Lactic Acid 1.0 Calcium 8.5 D Corrected Calcium 9.1 Phosphorus 2.0 L Magnesium 1.6 Total Bilirubin 0.9 AST 22 ALT 25 Alkaline Phosphatase 66 Total Protein 5.3 L Albumin 3.2 L D Globulin 2.1 L Albumin/Globulin Ratio 1.5 Ur Collection Type Urine Color Urine Clarity Urine pH Ur Specific [place] Urine Protein Urine Glucose (UA) Urine Ketones Urine Blood Urine Nitrite Urine Bilirubin Urine Urobilinogen (Auto) Ur Leukocyte Esterase Urine RBC Urine WBC Ur Squamous Epith Cells Urine Bacteria Ur Culture Indicated? Quality Measures Quality Measures none Advance care planning discussed with:: patient Assessment & Plan Assessment Current Active Medications: Generic Name Dose Route Start Last Admin Trade Name Freq PRN Reason Stop Dose Admin Acetaminophen 650 mg 04/12/24 15:33 Acetaminophen Supp 650 Mg Supp AR 05/12/24 15:32 Q6HR PRN PAIN OR FEVER > 101 Protocol Acetaminophen 650 mg 04/12/24 15:38 Acetaminophen 325 Mg Tablet PO 05/12/24 15:37 Q6H PRN PAIN SCALE 1-3 (mild Acetaminophen 650 mg 04/12/24 15:38 Acetaminophen 325 Mg Tablet PO 05/12/24 15:37 Q6H PRN Fever >100 Hydrocodone Bitart/Acetaminophen 1 tab 04/12/24 15:38 04/13/24 11:10 Hydrocodone/Apap 10/325 Tab PO 04/17/24 15:37 1 tab Q4HR PRN Administration PAIN SCALE 7-10 (Severe Divalproex Sodium 125 mg 04/12/24 21:00 04/13/24 08:29 Divalproex Sod Ec 125 Mg Tabec PO 05/12/24 20:59 125 mg BID LEIA Administration Docusate Sodium 100 mg 04/12/24 15:39 Docusate Sod 100 Mg Capsule PO 05/12/24 15:38 X1 PRN Constipation Protocol Fluticasone Propionate 1 spray 04/12/24 21:00 04/13/24 09:29 Fluticasone Kvng [place] 0.05% 16 Gm Btl NASAL 05/12/24 20:59 1 spray BID LEIA Administration Heparin Sodium (Porcine) 5,000 unit 04/12/24 22:00 04/13/24 13:48 Heparin Sod Inj 5000 Unit/Ml Vial SC 04/26/24 21:59 5,000 unit Q8HR LEIA Administration Dextrose/Sodium Chloride 1,000 mls @ 100 mls/hr 04/12/24 19:21 04/13/24 03:57 D5-1/2ns IV 05/12/24 19:20 Not Given BID LEIA Memantine 5 mg 04/12/24 21:00 04/13/24 08:29 Memantine Hcl 5 Mg Tablet PO 05/12/24 20:59 5 mg BID LEIA Administration Ondansetron HCl 4 mg 04/12/24 15:33 Ondansetron Inj 2 Mg/Ml Inj 2 Ml IV 05/12/24 15:32 Q6H PRN NAUSEA OR VOMITING Protocol Oxycodone/Acetaminophen 1 tab 04/12/24 15:38 Oxycodone/Apap 5/325 Tablet PO 04/17/24 15:37 Q6H PRN PAIN SCALE 4-6 (Moderate Pantoprazole Sodium 40 mg 04/12/24 15:45 04/13/24 08:28 Pantoprazole Inj 40 Mg Vial IVP 05/12/24 15:44 40 mg QDAY LEIA Administration Quetiapine Fumarate 50 mg 04/12/24 21:00 04/13/24 08:29 Quetiapine Fumarate 25 Mg Tablet PO 05/12/24 20:59 50 mg BID LEIA Administration Venlafaxine HCl 150 mg 04/12/24 15:45 04/13/24 08:28 Venlafaxine Xr 37.5 Mg Capcr PO 05/12/24 15:44 150 mg QDAY LEIA Administration Plan In summary: 79-year-old female with PMHx of advanced vascular dementia, HTN, nonambulatory, denting from SNF for failure to thrive and decreased oral intake. Admitted for FOT. Pending PEG tube placement. Spoke with next of kin, daughter, Delfina, evaluate goals of care. Family would like to proceed with full treatment including PEG tube placement. POLST form obtained from SNF indicates full code, full treatment including artificial feeds. Failure to thrive Protein caloric malnutrition Cachexia Presenting from SNF for decreased oral intake secondary to dysphagia. Exam shows frail female, generalized weakness and muscle wasting, signs and symptoms of dehydration. Vitals and labs unremarkable for lactic acidosis and hypernatremia as discussed below. Bedside swallow eval: Able to take oral meds. ? Pending PEG tube placement ? Pending dietitian recommendations Electrolyte abnormalities 04/13 potassium 3.3, repleted 04/13 phosphorus 2.0, repleted 04/13 magnesium 1.6, repleted Lactic acidosis (resolved) Hypernatremia (resolved) Tachycardia (resolved) In settings of acute dehydration. Sign of symptoms of dehydration on exam. Sodium 147., Lactic acid 2.3 then 3.5 after 1 L fluid. Blood pressure soft. Although she has history of hypertension. Completed D5 half NS at 250 cc an hour. Currently normotensive, sodium 145, lactic acid 1.0. ? Daily CMP ? Oral hydration through PEG tube once placed Advanced vascular dementia History of above. Noted on exam. Continue with oral meds if patient passes bedside swallow eval. Will switch to PEG tube route after PEG tube placement. ? Continue home DIVALPROEX 125 mg BID ? Continue home AMANTADINE 5 mg BID ? Continue home QUETIAPINE 50 mg BID ? Continue home VENLAFAXINE XR 150 mg QD Allergic rhinitis ? Continue home FLUTICASONE nasal spray 1 spray BID GERD ? Continue home PROTONIX 40 mg daily Health maintenance Diet: N.p.o., pending PEG tube GI prophylaxis: PROTONIX DVT prophylaxis: HEPARIN subcu Antibiotics: Not indicated CODE STATUS: Full code Disposition: Pending PEG tube placement, discharged to SNF. Patient case was discussed with attending, Dr. Shannan Rachel MD and senior residents Dr. Mclean and Dr. Ontiveros. Rafael Myers, DO PGYI Senior Resident Attestation: The patient is a 79-year-old female with significant past medical history of advanced vascular dementia, hypertension, nonambulatory, presented from SNF for failure to thrive and decreased oral intake is admitted for PEG tube placement. The patient is n.p.o. for PEG tube placement. She denied any symptoms like headache, nausea or vomiting, chest pain or SOB, abdominal pain or any diarrhea. Her vitals were stable. Labs were significant for potassium 3.3 and phosphorus 2.0, and was repleted with potassium phosphate. The patient is supposed to undergo PEG tube placement this afternoon or evening. Her lactic acidosis resolved, and we will continue her home medications with divalproex 125 Mg twice daily, amantadine 5 Mg twice daily, quetiapine 50 Mg twice daily and venlafaxine XR 150 Mg daily. The patient will be sent back to SNF by tomorrow if her vitals and labs are stable and she is able to tolerate PEG tube feeding. I discussed with and supervised the communications intern physician involved in the care of this patient. I personally saw and examined the patient and discussed the assessment and plan with the entire medicine team, including my attending. I agree with the assessment and plan as documented above. Kwesi Ontiveros MD PGY2 Internal Medicine
--- NOTE | 2024-04-13 15:06 | PC.SS ---
Initial assessment: This is 79 year old female admitted for failure to thrive. The patient is a assisted resident from [facility]. Felisa following information was obtained by nursing staff at the SNF. Patient is wheelchair bound at the facility. Patient requires assistance completing ADL's. Patient's facility PCP is Dr. Gardiner. Patient's emergency contact is Delfina meeks. At time of discharge, patient can return to [facility]. D/c plan: return to [facility] Next of kin: daughterDelfina
[2024-04-14] VITALS: BP 99/61; PULSE 102; RESP 18; TEMP 36.3; O2SAT 98
[2024-04-14] MEDS: HYDROcodone/APAP 10/325 TAB PO ×4 (02:03→22:17)
[2024-04-14 04:00] VITALS: BP 103/73; PULSE 106; RESP 16; TEMP 36.4; O2SAT 96
[2024-04-14] MEDS: HEPARIN SOD INJ 5000 UNIT/ML VIAL SC ×3 (05:10→21:38)
[2024-04-14] MEDS: DEXTROSE 5%-0.45% NS 1,000 ML 100 ML IV ×2 (05:12→21:37)
[2024-04-14 05:59] LABS: Basophils % (Auto) 0 % (0-2.5); Eosinophils % (Auto) 0 % (0-10); Hematocrit 35.8 % (36.0-46.0); Hemoglobin 11.8 g/dL (12.0-16.0); Immature Granulocytes % (Auto) 0 % (0-0); Immature Granulocytes Auto 0.03 Thou/mm3 (0.00-0.00); Lymphocytes # (Auto) 1.5 Thou/mm3 (1.0-4.8); Lymphocytes % (Auto) 15 % (10-50); Mean Corpuscular Hemoglobin 30.3 pg (25.0-35.0); Mean Corpuscular Volume 92 fL (80-100); Monocytes # (Auto) 0.6 Thou/mm3 (0.0-0.8); Monocytes % (Auto) 6 % (0-12); Neutrophils # (Auto) 8.2 Thou/mm3 (1.8-7.7); Neutrophils % (Auto) 79 % (37-80); Nucleated Red Blood Cell % 0 /100 WBC (0); Platelet Count 272 Thou/mm3 (140-440); RDW Standard Deviation 45.2 fL (36.4-46.3); White Blood Count 10.3 Thou/mm3 (3.6-11.0)
[2024-04-14 06:12] LABS: Alanine Aminotransferase 22 U/L (10-49); Albumin, Serum 3.3 gm/dL (3.4-4.8); Albumin/Globulin Ratio 1.4 (1.2-2.2); Alkaline Phosphatase 72 U/L (46-116); Anion Gap 6 (7-16); Aspartate Amino Transferase 20 U/L (0-34); BUN/Creatinine Ratio 18 Ratio (12-20); Bilirubin,Total 0.8 mg/dL (0.3-1.2); Blood Urea Nitrogen 9 mg/dL (9-23); Calcium 8.5 mg/dL (8.3-10.6); Calcium (Corrected) 9.1 mg/dL (8.5-10.1); Carbon Dioxide 27.9 mMol/L (20.0-31.0); Chloride 103 mMol/L (98-107); Creatinine (Component) 0.5 mg/dL (0.6-1.3); Estimated Creatinine Clearance 73.1 mL/min (>60); Globulin 2.4 gm/dL (2.3-3.5); Glucose 128 mg/dL (74-106); Osmolality,Calculated 274 (275-295); Phosphorous 2.4 mg/dL (2.4-5.1); Potassium 3.4 mMol/L (3.4-5.1); Sodium 137 mMol/L (136-145); Total Protein 5.7 gm/dL (5.7-8.2); eGFR > 60 See Note
[2024-04-14 08:00] VITALS: BP 108/76; PULSE 103; RESP 18; TEMP 36.1; O2SAT 96
--- NOTE | 2024-04-14 08:38 | CHAP ---
Responded to Rapid Response (08:38). No family present. Said a silent prayer by the door.
--- NOTE | 2024-04-14 08:41 | XR_ITS ---
Examination: AP chest single view Technique one AP portable semiupright chest single view Exam date and time: April 14, 2024 0848 hours Comparison April 12, 2024 INDICATIONS: Inpatient with difficulty breathing coughing shortness of breath this week. FINDINGS: Diffuse right lung pneumonia, consider aspiration pneumonia Accentuation bronchovascular markings. Normal heart size Severe osteopenia with kyphoplasty L1 IMPRESSION: Diffuse right lung pneumonia, consider aspiration pneumonia
--- NOTE | 2024-04-14 08:45 | ECHO_ITS ---
Transthoracic Echo Report Ht (in): 66 Wt (lb): 108 Exam Location: Portable Status: Inpatient Hat Binder: Vivi Sacnhes Indications: Procedure Performed: BP: 108 / 76 HR: 103 Rhythm: Sinus Technical Quality: Fair Contrast: Agitated Saline Total Dose (mL): MEASUREMENTS (Male / Female) Normal Values 2D ECHO LV Diastolic Diameter PLAX 3.7 cm 4.2 - 5.9 / 3.9 - 5.3 cm LV Systolic Diameter PLAX 2.2 cm IVS Diastolic Thickness 1.1 cm 0.6 - 1.0 / 0.6 - 0.9 cm LVPW Diastolic Thickness 1.0 cm 0.6 - 1.0 / 0.6 - 0.9 cm LV Relative Wall Thickness 0.6 LVOT Diameter 1.7 cm LA Volume Index 19.5 cm?/m? 16 - 28 cm?/m? Ascending Aorta Diameter 3.3 cm M-MODE Aortic Root Diameter MM 2.8 cm LA Systolic Diameter MM 3.4 cm LA Ao Ratio MM 1.2 AV Cusp Separation MM 1.8 cm DOPPLER AV Peak Velocity 146.3 cm/s AV Peak Gradient 8.6 mmHg AV Mean Gradient 5.0 mmHg AV Velocity Time Integral 27.3 cm AI Peak Velocity 440.5 cm/s AI Peak Gradient 77.6 mmHg AI Pressure Half Time 388.5 ms LVOT Peak Velocity 103.0 cm/s LVOT Peak Gradient 4.2 mmHg LVOT Velocity Time Integral 18.8 cm LVOT Cardiac Index 2933.2 cm?/min?m? AV Area Cont Eq vti 1.6 cm? AV Area Cont Eq pk 1.6 cm? MV Peak Velocity 118.0 cm/s MV Peak Gradient 5.6 mmHg MV Mean Velocity 67.9 cm/s MV Mean Gradient 2.0 mmHg MV Area PHT 5.4 cm? MR Peak Velocity 558.0 cm/s MR Peak Gradient 124.5 mmHg Mitral E Point Velocity 62.1 cm/s Mitral A Point Velocity 114.0 cm/s Mitral E to A Ratio 0.5 LV E' Lateral Velocity 9.7 cm/s Mitral E to LV E' Lateral Ratio 6.4 LV E' Septal Velocity 6.0 cm/s Mitral E to LV E' Septal Ratio 10.4 TR Peak Velocity 197.0 cm/s TR Peak Gradient 15.5 mmHg FINDINGS Left Ventricle Normal left ventricular size, systolic function with no obvious regional wall motion abnormalities. The ejection fraction is visually estimated at 65-70%. Right Ventricle The right ventricle is normal in size and systolic function. The estimated right ventricular systoli c pressure, 23 mmHg. RAP 5. Left Atrium The left atrium is normal by two-dimensional, color flow and Doppler imaging with no structural abnormalities, no thrombus formation present. Right Atrium The right atrium is normal by two-dimensional imaging, color flow and Doppler imaging with no struct ural abnormalities, no thrombus formation present. Atrial Septum The interatrial septum appears normal with no evidence of a shunt. Aorta The aorta is normal by two-dimensional, color flow and Doppler interrogation. Mitral Valve The mitral valve is mildly MAC. There is mild mitral valve regurgitation. Aortic Valve The aortic valve is trileaflet. Moderate sclerosis without stenosis. There is moderate aortic valv e regurgitation. Tricuspid Valve The tricuspid valve is normal by two-dimensional, color flow and Doppler interrogation. There is mil d tricuspid valve regurgitation. Pulmonic Valve There is no significant pulmonic valve regurgitation. Vessels The pulmonary artery appears normal. The inferior vena cava pulmonary and hepatic veins inferior delio a cava not well visualized. Pericardium The pericardium is normal by two-dimensional imaging. There is no significant pericardial effusion. CONCLUSIONS Negative bubble study. TTE suboptimal images. Consider MARIO if high clincial suspicion. Normal LV size and function. Stage I diastolic dysfunction. Estimated EF 60-65% Normal RV size and function. Mild MAC. Mild MR, TR. Modearte AV sclerosis without stenosis. Calcified Non corornary cusp with limited mobility Mild to moderate AI. IVC not well visualzied. Champ Mendez (Electronically Signed) Final Date: 14 April 2024 21:31
--- NOTE | 2024-04-14 08:46 | XR_ITS ---
Examination: CT brain head without contrast. 2-D sagittal coronal reconstructions Date and time of exam:April 14, 2024 0853 hours INDICATIONS: Stroke alert, onset altered mental status this morning COMPARISON: April 02, 2024 CTDI: vol (mGy):45.3 DLP: (mGycm):977 Technique: Multiple CT axial sections of the brain have been obtained, 5 mm slice thickness. Contrast has not been administered. 2-D sagittal, coronal reconstructions have been obtained Low dose protocols were performed. One or more of the following dose reduction techniques were used; automated exposure control, adjustment of the mA and/or KV according to patient size, use of iterative reconstruction technique. Findings: Mild ventricular enlargement Extensive chronic microvascular white matter change Intra-axial or extra-axial hemorrhage density is not seen. No mass effect or midline shift Basal cisterns are not remarkable. Fourth ventricle is midline. Cranial vault intact. Impression: Negative for acute hemorrhage, mass effect or midline shift
--- NOTE | 2024-04-14 08:53 | XR_ITS ---
Examination: CTA carotids with intravenous contrast CTA brain, head with intravenous contrast. 2-D sagittal, coronal reconstructions. 3-D reconstructions. Exam date and time: April 14, 2024 0905 hours INDICATIONS: Stroke alert, onset altered mental status today CTDI: vol (mGy) 17.4 DLP: (mGycm) 384 Technique: Multiple CTA axial brain, head carotid images post intravenous contrast injection 75 cc, [id number]. 2-D sagittal, coronal reconstructions. 3-D reconstructions, 3-D post processing including vascular maximum intensity projection images. Low dose protocols were performed. One or more of the following dose reduction techniques were used; automated exposure control, adjustment of the mA and/or KV according to patient size, use of iterative reconstruction technique. Findings: Subcentimeter bilateral thyroid nodules Calcified granuloma left upper lobe No significant common carotid carotid bifurcation or internal carotid artery stenoses Minimally dominant right vertebral artery no critical stenoses No cerebral large vessel arterial occlusions, thrombus, dissection or cerebral aneurysm IMPRESSION: Subcentimeter bilateral thyroid nodules, consider elective thyroid sonography follow-up No significant neck arterial stenoses No cerebral large vessel arterial occlusions or thrombus
--- NOTE | 2024-04-14 08:59 | PC.NURSE ---
Went into pt room at 08:16 to pass morning meds. Pt unable to open mouth. Pt unable to state where pt is at. pt very lethargic and not responding as usually does. Change in condition. Rapid response called. Stroke alert called by . Pt transfered for Neurocheck at 08:55
--- NOTE | 2024-04-14 09:30 | PD.TNEURO ---
Tele Neuro Consultation Consultation Date 04/14/24 Most Recent Vital Signs Last Vital Signs Temp 97.0 F 04/14/24 08:00 Pulse 103 H 04/14/24 08:00 Resp 18 04/14/24 08:00 BP 108/76 04/14/24 08:00 Pulse Ox 96 04/14/24 08:00 O2 Del Method Room Air 04/14/24 08:00 O2 Flow Rate 5 04/14/24 08:00 Laboratory-Coagulation Panel PT 11.8 Seconds (9.0-12.2) 04/12/24 11:42 INR 1.1 (0.9-1.3) 04/12/24 11:42 APTT 24.8 Seconds (22.0-36.0) 04/12/24 11:42 Consultation Narrative [facility] Tele[facility]rology Consult [facility] Patient Name:???Adriana Jim Date of :???1945 Identification Number:??? Date of Service:???04/14/2024 08:49:06 Diagnosis:?R47.01 - Aphasia Impression: ?79F with PMHx HTN, advanced vascular dementia, admitted for failure to thrive from SNF, required a PEG which was placed yesterday, this morning more altered compared to her ususal baseline thus stroke alert activated. Patient needs help with all basic ADLs, and cannot ambulate independently/contractures, however normally she can converse with daughter. Last known well may have been yesterday afternoon at 3-4pm, this morning per daughter at bedside, with whom I spoke directly, patient was out of it, very sleepy, could say ow and her name and I love you. ?On my exam patient is on her right side, does not want to lay on her back, no gaze deviation, does not comply with formal exam but no clear weakness, noted contractures in BLE. She is aphasic. DDX includes delirium/toxic metabolic encephalopathy vs acute ischemic stroke. I spoke with the GI physician who placed her PEG yesterday, he advises that patient is very likely to bleed if given IV lytic, especially as she has a gastric ulcer. Discussed wtih daughter that risks outweigh benefits of lytic, answered questions, she was in agreement. ? Our recommendations are outlined below. Recommendations: ? Stroke/Telemetry Floor ? Neuro Checks ? Bedside Swallow Eval ? DVT Prophylaxis ? Head of Bed 30 Degrees ? Euglycemia and Avoid Hyperthermia (PRN Acetaminophen) ? Initiate or continue Aspirin 325 MG daily ?MR brain w/o; ST consult Sign Out: ? Discussed with Primary Attending Advanced Imaging:Advanced imaging has been ordered. Results pending. Metrics: Last Known Well: 04/14/2024 06:00:00 Dispatch Time: 04/14/2024 08:49:06 Initial Response Time: 04/14/2024 08:56:43Symptoms: confusion. Initial patient interaction: 04/14/2024 09:03:57 NIHSS Assessment Completed: 04/14/2024 09:18:00Patient is not a candidate for Thrombolytic. Thrombolytic Medical Decision: 04/14/2024 09:19:00Patient was not deemed candidate for Thrombolytic because of following reasons: LKW outside 4.5 hr window. . I personally Reviewed the CT Head and it Showed no acute changes Primary Provider Notified of Diagnostic Impression and Management Plan on: 04/14/2024 09:08:59 Spoke With: claudia mccord Able to Reach 04/14/2024 09:08:59 History of Present Illness:Patient is a 79 year old Female. Inpatient stroke alert was called for symptoms of confusion. 79F with PMHx HTN, advanced vascular dementia, admitted for failure to thrive from SNF, required a PEG which was placed yesterday, this morning more altered compared to her ususal baseline thus stroke alert activated. Patient needs help with all basic ADLs, and cannot ambulate independently/contractures, however normally she can converse with daughter. Last known well may have been yesterday afternoon at 3-4pm, this morning per daughter at bedside, with whom I spoke directly, patient was out of it, very sleepy, could say ow and her name and I love you. spoke with GI - shallow gastric ulcer - bleed Dr. Taylor ? Past Medical History: ?Hypertension Medications: No Anticoagulant use? No Antiplatelet use Reviewed EMR for current medications Other Medications Pertinent To Assessment Include: Effexor, Seroquel Allergies:? Reviewed Social History: Unable To Obtain Due To Patient Status :?Patient Cannot Speak Family History: There is no family history of premature cerebrovascular disease pertinent to this consultation ROS : 14 Points Review of Systems was performed and was negative except mentioned in HPI. Past Surgical History: There Is No Surgical History Contributory To Today?s Visit ? Examination: BP(108/76),?Pulse(103),?Blood Glucose(126) 1A: Level of Consciousness - Alert; keenly responsive?+ 0 1B: Ask Month and Age - Could Not Answer Either Question Correctly?+ 2 1C: Blink Eyes & Squeeze Hands - Performs 1 Task?+ 1 2: Test Horizontal Extraocular Movements - Normal?+ 0 3: Test Visual Denise - No Visual Loss?+ 0 4: Test Facial Palsy (Use Grimace if Obtunded) - Normal symmetry?+ 0 5A: Test Left Arm Motor Drift - Drift, but doesn't hit bed?+ 1 5B: Test Right Arm Motor Drift - Some Effort Against [place]?+ 2 6A: Test Left Leg Motor Drift - No Effort Against [place]?+ 3 6B: Test Right Leg Motor Drift - No Effort Against [place]?+ 3 7: Test Limb Ataxia (FNF/Heel-Henry) - No Ataxia?+ 0 8: Test Sensation - Mild-Moderate Loss: Can Sense Being Touched?+ 1 9: Test Language/Aphasia - Severe Aphasia: Fragmentary Expression, Inference Needed, Cannot Identify Materials?+ 2 10: Test Dysarthria - Normal?+ 0 11: Test Extinction/Inattention - No abnormality?+ 0 NIHSS Score:?15 NIHSS Free Text :?states age is 47; sticks out tongue but does not follow any other commands; perseverates on ow and oh boy , does not name items. Pre-Morbid Modified [place] Scale:4 Points = Moderately severe disability; unable to walk and attend to bodily needs without assistance Spoke with :?hospitalist over camera This consult was conducted in real time using interactive audio and video technology. Patient was informed of the technology being used for this visit and agreed to proceed. Patient located in hospital and provider located at home/office setting. Patient is being evaluated for possible acute neurologic impairment and high probability of imminent or life-threatening deterioration. I spent total of 35 minutes providing care to this patient, including time for face to face visit via telemedicine, review of medical records, imaging studies and discussion of findings with providers, the patient and/or family. Dr Gwendolyn Villafuerte [facility] For Inpatient follow-up with [facility] physician please call [facility] at . As we are not an outpatient service for any post hospital discharge needs please contact the hospital for assistance. If you have any questions for the [facility] physicians or need to reconsult for clinical or diagnostic changes please contact us via [facility] at .
--- NOTE | 2024-04-14 10:18 | PCS.ST ---
Pt can tolerate soft diet/regular liquids when cleared for PO.
--- NOTE | 2024-04-14 10:28 | EVENTNT_ITS ---
<Statement entered by Shannan Rachel MD - 04/18/24 12:16> I reviewed above note and agree with findings and plans. I have also personally examined the patient with medicine team and went over assessment and plan with medical team including internal grinder and resident physician. Documentation for date of: 04/14/24 Event Note Event Note: This morning around 8 AM, a rapid response was called as patient was found to be aphasic, not compensated, not answering questions appropriately. Per daughter at bedside, last known normal was 6 AM this morning. On arrival patient was aphasic, not answering questions, not following command, appears contractured. Vitals were within normal limit. Stroke alert was initiated. Head CT showed no acute pathology. CTA head/neck showed no acute pathology or significant vessel occlusion or stenosis. MRI pending. Patient was started on ASPIRIN per teleneurology recommendations. Patient case was discussed with attending, Dr. Shannan Rachel MD and senior residents Dr. Mclean and Dr. Ontiveros. Rafael Myers, PGYI Senior Resident Attestation: The patient was aphagic this morning and DYEHOUSE WORKER was called, Stroke workup so far has been negative, with negative bubble study, CT head and CTA head and neck. She was back to her baseline later. She was started on aspirin by teleneurology. I discussed with and supervised the internal grinder physician involved in the care of this patient. I personally saw and examined the patient and discussed the assessment and plan with the entire medicine team, including my attending. I agree with the assessment and plan as documented above. Kwesi Ontiveros MD PGY2 Internal Medicine
--- NOTE | 2024-04-14 10:29 | ESPR_ITS ---
<Statement entered by Shannan Rachel MD - 04/18/24 12:16> I reviewed above note and agree with findings and plans. I have also personally examined the patient with medicine team and went over assessment and plan with medical team including journalism internship and resident physician. Documentation for date of: 04/14/24 Subjective Subjective Interval history: This morning had a rapid as discussed below. Currently doing better, talked to her daughter, per daughter she feels like patient is at baseline. Denies new symptoms or worsening of symptoms. Exam Vital Signs Temp Pulse Resp BP Pulse Ox O2 Del Method O2 Flow Rate 97.0 F 103 H 18 108/76 96 Room Air 5 04/14/24 08:00 04/14/24 08:00 04/14/24 08:00 04/14/24 08:00 04/14/24 08:00 04/14/24 08:00 04/14/24 08:00 Narrative Exam GENERAL * Frail, cachectic, generally weak generally female, appears in mild distress HEENT * NCAT.?SENA. Moist oral mucosa. Patent Nares NECK * Supple, nontender, no thyromegaly, no meningismus, no JVD, no step offs CHEST * RRR, no m/g/r * CTAB, no w/r/r. Symmetrical chest rise. No intercostal subcostal retraction * Atraumatic, nontender, no crepitus, symmetrical expansion. ABDOMEN * Soft, flat, nontender. No guarding/rebound tenderness/masses. * Bowel sounds presents EXTREMITIES * Nontender, no cyanosis, no edema * No edema/cyanosis.? SKIN * Warm, dry, decreased skin turgor. NEUROMUSCULAR * No lumbar or midline, no CVA, no paraspinal muscle spasm or tenderness. * Moves all 4 extremities well, with full ROM and good CSM. * No focal neurologic deficits. PSYCHIATRY * Appears confused, not cooperative, denying further physical exam Objective Labs 04/15/24 05:15 04/15/24 05:15 Labs: Laboratory Results - last 24 hr 04/14/24 05:00 WBC 10.3 D RBC 3.90 L Hgb 11.8 L Hct 35.8 L MCV 92 MCH 30.3 MCHC 33.0 RDW Std Deviation 45.2 Plt Count 272 Neut % (Auto) 79 Lymph % (Auto) 15 [place] % (Auto) 6 Eos % (Auto) 0 Baso % (Auto) 0 Neut # (Auto) 8.2 H Lymph # (Auto) 1.5 [place] # (Auto) 0.6 Eos # (Auto) 0.0 Baso # (Auto) 0.0 Immature Gran # (Auto) 0.03 H Absolute Nucleated RBC 0.00 Immature Gran % 0 Nucleated RBC % 0 Sodium 137 Potassium 3.4 Chloride 103 Carbon Dioxide 27.9 Anion Gap 6 L BUN 9 Creatinine 0.5 L Estim Creat Clear Calc 73.1 eGFR > 60 BUN/Creatinine Ratio 18 Glucose 128 H D Calculated Osmolality 274 L Calcium 8.5 Corrected Calcium 9.1 Phosphorus 2.4 Magnesium 2.0 Total Bilirubin 0.8 AST 20 ALT 22 Alkaline Phosphatase 72 Total Protein 5.7 Albumin 3.3 L Globulin 2.4 Albumin/Globulin Ratio 1.4 Quality Measures Quality Measures none Advance care planning discussed with:: patient Assessment & Plan Assessment Current Active Medications: Generic Name Dose Route Start Last Admin Trade Name Freq PRN Reason Stop Dose Admin Acetaminophen 650 mg 04/12/24 15:33 Acetaminophen Supp 650 Mg Supp UT 05/12/24 15:32 Q6HR PRN PAIN OR FEVER > 101 Protocol Acetaminophen 650 mg 04/12/24 15:38 Acetaminophen 325 Mg Tablet PO 05/12/24 15:37 Q6H PRN PAIN SCALE 1-3 (mild Acetaminophen 650 mg 04/12/24 15:38 Acetaminophen 325 Mg Tablet PO 05/12/24 15:37 Q6H PRN Fever >100 Hydrocodone Bitart/Acetaminophen 1 tab 04/12/24 15:38 04/14/24 02:03 Hydrocodone/Apap 10/325 Tab PO 04/17/24 15:37 1 tab Q4HR PRN Administration PAIN SCALE 7-10 (Severe Aspirin 81 mg 04/15/24 09:00 Aspirin 81 Mg Chew PO 05/15/24 08:59 QDAY LEIA Divalproex Sodium 125 mg 04/12/24 21:00 04/13/24 21:06 Divalproex Sod Ec 125 Mg Tabec PO 05/12/24 20:59 125 mg BID LEIA Administration Docusate Sodium 100 mg 04/12/24 15:39 Docusate Sod 100 Mg Capsule PO 05/12/24 15:38 X1 PRN Constipation Protocol Fluticasone Propionate 1 spray 04/12/24 21:00 04/14/24 08:17 Fluticasone Kvng [place] 0.05% 16 Gm Btl NASAL 05/12/24 20:59 Not Given BID LEIA Heparin Sodium (Porcine) 5,000 unit 04/12/24 22:00 04/14/24 05:10 Heparin Sod Inj 5000 Unit/Ml Vial SC 04/26/24 21:59 5,000 unit Q8HR LEIA Administration Dextrose/Sodium Chloride 1,000 mls @ 100 mls/hr 04/12/24 19:21 04/14/24 05:12 D5-1/2ns IV 05/12/24 19:20 100 mls/hr BID LEIA Administration Memantine 5 mg 04/12/24 21:00 04/13/24 21:07 Memantine Hcl 5 Mg Tablet PO 05/12/24 20:59 5 mg BID LEIA Administration Multivitamins/Minerals 15 ml 04/14/24 09:00 Multivitamin 15 Ml Udc GT 05/14/24 08:59 QDAY LEIA Ondansetron HCl 4 mg 04/12/24 15:33 Ondansetron Inj 2 Mg/Ml Inj 2 Ml IV 05/12/24 15:32 Q6H PRN NAUSEA OR VOMITING Protocol Oxycodone/Acetaminophen 1 tab 04/12/24 15:38 Oxycodone/Apap 5/325 Tablet PO 04/17/24 15:37 Q6H PRN PAIN SCALE 4-6 (Moderate Pantoprazole Sodium 40 mg 04/12/24 15:45 04/13/24 08:28 Pantoprazole Inj 40 Mg Vial IVP 05/12/24 15:44 40 mg QDAY LEIA Administration Quetiapine Fumarate 50 mg 04/12/24 21:00 04/13/24 21:07 Quetiapine Fumarate 25 Mg Tablet PO 05/12/24 20:59 50 mg BID LEIA Administration Thiamine HCl 100 mg 04/15/24 09:00 Thiamine 100 Mg Tablet PO 05/15/24 08:59 QDAY LEIA Venlafaxine HCl 150 mg 04/12/24 15:45 04/13/24 08:28 Venlafaxine Xr 37.5 Mg Capcr PO 05/12/24 15:44 150 mg QDAY LEIA Administration Plan In summary: 79-year-old female with PMHx of advanced vascular dementia, HTN, nonambulatory, denting from SNF for failure to thrive and decreased oral intake. Admitted for FOT. Underwent successful PEG tube placement. She had acute aphasia this morning, likely TIA. Imaging thus far has been negative. Will repeat CT tomorrow morning. Spoke with next of kin, daughter, Delfina, evaluate goals of care. Family would like to proceed with full treatment including PEG tube placement. POLST form obtained from [facility] indicates full code, full treatment including artificial feeds. TIA Aphasia Had a rapid response called around 8 AM this morning for acute aphasia. Last known normal was at 6 AM. On exam she had dysphagia, was not answering question, not following command, had contracture of lower extremity. Stroke alert was initiated. CT head and CTA neck/head showed no acute pathology or significant vessel stenosis. She is contraindicated for tPA or IV anticoagulations given significant gastric ulcer and recent PEG tube placement. Teleneurology recommended started ASPIRIN. She passed formal swallow eval. ? Continue ASPIRIN 81 mg daily ? Neurochecks Q4H ? Head elevation ? Seizure precautions Failure to thrive Protein caloric malnutrition Cachexia Presenting from SNF for decreased oral intake secondary to dysphagia. Exam shows frail female, generalized weakness and muscle wasting, signs and symptoms of dehydration. Vitals and labs unremarkable for lactic acidosis and hypernatremia as discussed below. Completed uncomplicated PEG tube placement. Cleared for oral intake by formal speech evaluation. ? Continue clear liquid diet. ? Continue PEG tube feeds following dietitian recommendations. ? Continue water flushes through PEG tube as instructed by GI. Electrolyte abnormalities 04/13 potassium 3.3, repleted 16 phosphorus 2.0, repleted 16 magnesium 1.6, repleted ? Daily CMP, replete as needed Hypotension BP 91/58. Likely volume depletion. ? 250 NS bolus Lactic acidosis (resolved) Hypernatremia (resolved) Tachycardia (resolved) In settings of acute dehydration. Sign of symptoms of dehydration on exam. Sodium 147., Lactic acid 2.3 then 3.5 after 1 L fluid. Blood pressure soft. Although she has history of hypertension. Completed D5 half NS at 250 cc an hour. Currently normotensive, sodium 145, lactic acid 1.0. ? Daily CMP ? Oral hydration through PEG tube once placed Advanced vascular dementia History of above. Noted on exam. Continue with oral meds if patient passes bedside swallow eval. Will switch to PEG tube route after PEG tube placement. ? Continue home DIVALPROEX 125 mg BID ? Continue home AMANTADINE 5 mg BID ? Continue home QUETIAPINE 50 mg BID ? Continue home VENLAFAXINE XR 150 mg QD Allergic rhinitis ? Continue home FLUTICASONE nasal spray 1 spray BID GERD ? Continue home PROTONIX 40 mg daily Health maintenance Diet: PEG tube, clear liquid diet GI prophylaxis: PROTONIX DVT prophylaxis: HEPARIN subcu Antibiotics: Not indicated CODE STATUS: Full code Disposition: Pending PEG tube placement, discharged to SNF. Patient case was discussed with attending, Dr. Shannan Rachel MD and senior residents Dr. Mclean and Dr. Ontiveros. Rafael Myers, DO PGYI Senior Resident Attestation: The patient was dysphagic this morning, and UNIVERSITY SERVICES PROGRAM ASSOCIATE was called, later stroke alert was called. Stroke work up has been negative so far, and was recommended to start on aspirin. MRI brain is pending. Later, her physical exam was at baseline. We will continue to monitor her electrolytes and replete as needed, and also continue to increase her tube feed to goal level. She was started on unasyn for aspiration PNA. I discussed with and supervised the journalism internship physician involved in the care of this patient. I personally saw and examined the patient and discussed the assessment and plan with the entire medicine team, including my attending. I agree with the assessment and plan as documented above. Kwesi Ontiveros MD PGY2 Internal Medicine
[2024-04-14] MEDS: POTASSIUM CHLORIDE 20 mEq TABCR 40 MEQ PO (10:52)
[2024-04-14] MEDS: PANTOPRAZOLE INJ 40 MG VIAL IVP (10:52)
[2024-04-14] MEDS: MULTIVITAMIN 15 ML UDC GT (10:53)
[2024-04-14] MEDS: MEMANTINE HCL 5 MG TABLET PO ×2 (10:53→21:39)
[2024-04-14] MEDS: QUEtiapine FUMARATE 25 MG TABLET 50 MG PO ×2 (10:53→21:39)
[2024-04-14] MEDS: NAPH,KPH MBDB 1 PACKET (1.5 GM) 2 PACKET PO (10:53)
[2024-04-14] MEDS: THIAMINE 100 MG TABLET PO (10:54)
[2024-04-14] MEDS: DIVALPROEX SOD EC 125 MG TABEC PO ×2 (10:54→21:38)
[2024-04-14] MEDS: VENLAFAXINE XR 37.5 MG CAPCR 150 MG PO (10:55)
[2024-04-14] MEDS: Aspirin 325 MG TABLET GT (10:57)
[2024-04-14 12:00] VITALS: BP 107/78; PULSE 98; RESP 17; TEMP 36.2; O2SAT 95
--- NOTE | 2024-04-14 12:33 | PC.SS ---
Addendum entered by CHARLETTE Conroy 04/14/24 16:50: SS update: spoke with patient's daughter, Delfina Jim to inform her no accepting SNF in [facility]. Explained to Delfina she is a bed hold at [facility] however she is refusing to have patient return there. Suggested we could expand the search for SNF's and she was agreeable. Explained to Delfina if no accepting facility then patient would have to decided if patient can discharge home or return to [facility]. Delfina verbalized understanding. Addendum entered by CHARLETTE Conroy 04/14/24 12:50: SS update: SNF inquiry sent to SNF's in [facility] via [employer] Pending responses. Original Note: SS follow up: met with patient's daughter Delfina at bed side. Delfina is requesting a different SNF for the patient. Delfina is adamant she does not want her mother to return to [facility]. Delfina would prefer a facility in [place], [place]. No preferred facility. SS notified Shannan at [facility] to make aware, per Shannan the patient is a bed hold at their facility, should patient not have an accepting facility Shannan can accept the patient back. Shannan would like to be notified if the patient is discharged to a different facility.
--- NOTE | 2024-04-14 14:34 | PD.IMPROG ---
Documentation for date of: 04/14/24 Subjective Subjective Interval history: Rapid response this morning for aphasia Spoke with teleneurology Against using of any anticoagulation except aspirin because of the gastric ulcer recent placement of a PEG tube Patient has returned to her baseline Exam Vital Signs Temp Pulse Resp BP Pulse Ox O2 Del Method O2 Flow Rate 97.0 F 103 H 18 108/76 96 Room Air 5 04/14/24 08:00 04/14/24 08:00 04/14/24 08:00 04/14/24 08:00 04/14/24 08:00 04/14/24 08:00 04/14/24 08:00 Routine Respiratory Exam Comments: Normal to auscultation Routine Abdominal Exam Comments: PEG site checked no drainage Objective Labs 04/14/24 05:00 04/14/24 05:00 Labs: Laboratory Results - last 24 hr 04/14/24 05:00 WBC 10.3 D RBC 3.90 L Hgb 11.8 L Hct 35.8 L MCV 92 MCH 30.3 MCHC 33.0 RDW Std Deviation 45.2 Plt Count 272 Neut % (Auto) 79 Lymph % (Auto) 15 [place] % (Auto) 6 Eos % (Auto) 0 Baso % (Auto) 0 Neut # (Auto) 8.2 H Lymph # (Auto) 1.5 [place] # (Auto) 0.6 Eos # (Auto) 0.0 Baso # (Auto) 0.0 Immature Gran # (Auto) 0.03 H Absolute Nucleated RBC 0.00 Immature Gran % 0 Nucleated RBC % 0 Sodium 137 Potassium 3.4 Chloride 103 Carbon Dioxide 27.9 Anion Gap 6 L BUN 9 Creatinine 0.5 L Estim Creat Clear Calc 73.1 eGFR > 60 BUN/Creatinine Ratio 18 Glucose 128 H D Calculated Osmolality 274 L Calcium 8.5 Corrected Calcium 9.1 Phosphorus 2.4 Magnesium 2.0 Total Bilirubin 0.8 AST 20 ALT 22 Alkaline Phosphatase 72 Total Protein 5.7 Albumin 3.3 L Globulin 2.4 Albumin/Globulin Ratio 1.4 Impressions Impression: # Failure to thrive # PEG placement for enteral hyperalimentation # Shallow gastric ulcer Okay to use aspirin for prophylaxis Assessment & Plan A&P Narrative # Failure to thrive # Abnormal weight loss # Dementia Plan Placement of percutaneous endoscopic gastrostomy tube via fiberoptic esophagogastroduodenoscopy under intravenous moderate sedation Ancef 1 g IV piggyback on-call to endoscopy N.p.o. at midnight tonight except meds Thank you very much for the opportunity to participate in the care of this patient Time Spent With Patient Time: Total time spent is greater than 50% in coordination of care (as documented) at patient's floor/unit and/or counseling patient:
[2024-04-14] MEDS: AMPICILLIN/SULBAC INJ 3 GM in SODIUM CHLORIDE 0.9% 100 ML IV ×3 (15:04→23:31)
[2024-04-14 16:00] VITALS: BP 91/58; PULSE 80; RESP 18; TEMP 36.2; O2SAT 93
--- NOTE | 2024-04-14 16:08 | PC.SS ---
Rounding note: rapid was called today. Stroke rule out. Continued treating for pneumonia.
[2024-04-14] MEDS: SODIUM CHLORIDE 0.9% 250 ML 250 ML 999 ML IV (18:28)
[2024-04-14 20:00] VITALS: BP 107/63; PULSE 90; RESP 16; TEMP 36.2; O2SAT 95
[2024-04-14 20:50] LABS: Base Excess 2 (-3-3); HCO3 27 mEq/L (20-26); Inspired Oxygen, FIO2 21 %; O2 Saturation 97 % (91-98); PCO2 43 mmHg (32.0-48.0); PO2 79 mmHg (83-108); pH, Arterial 7.42 (7.35-7.45)
[2024-04-14 21:01] LABS: Allen Test Performed/OK; Puncture Site Left Radial
[2024-04-14] MEDS: FLUTICASONE NAS SPRAY 0.05% 16 GM BTL 1 SPRAY NASAL (21:40)
[2024-04-15] VITALS: BP 96/61; PULSE 100; RESP 17; TEMP 36.8; O2SAT 95
[2024-04-15 04:00] VITALS: BP 109/74; PULSE 86; RESP 17; TEMP 36.1; O2SAT 95
[2024-04-15] MEDS: HEPARIN SOD INJ 5000 UNIT/ML VIAL SC ×3 (05:18→21:59)
[2024-04-15] MEDS: AMPICILLIN/SULBAC INJ 3 GM in SODIUM CHLORIDE 0.9% 100 ML IV ×3 (05:18→17:31)
[2024-04-15 05:39] LABS: Basophils % (Auto) 0 % (0-2.5); Eosinophils # (Auto) 0.1 Thou/mm3 (0.0-0.5); Eosinophils % (Auto) 1 % (0-10); Hematocrit 33.3 % (36.0-46.0); Hemoglobin 10.6 g/dL (12.0-16.0); Immature Granulocytes % (Auto) 0 % (0-0); Immature Granulocytes Auto 0.03 Thou/mm3 (0.00-0.00); Lymphocytes % (Auto) 25 % (10-50); Mean Corpuscular HGB Conc 31.8 g/dl (31.0-37.0); Mean Corpuscular Hemoglobin 29.8 pg (25.0-35.0); Mean Corpuscular Volume 94 fL (80-100); Monocytes # (Auto) 0.8 Thou/mm3 (0.0-0.8); Monocytes % (Auto) 10 % (0-12); Neutrophils % (Auto) 63 % (37-80); Nucleated Red Blood Cell % 0 /100 WBC (0); Platelet Count 224 Thou/mm3 (140-440); RDW Standard Deviation 46.6 fL (36.4-46.3); Red Blood Count 3.56 Miln/mm3 (4.00-5.20); White Blood Count 7.9 Thou/mm3 (3.6-11.0)
[2024-04-15 06:10] LABS: Alanine Aminotransferase 24 U/L (10-49); Albumin, Serum 2.8 gm/dL (3.4-4.8); Albumin/Globulin Ratio 1.3 (1.2-2.2); Alkaline Phosphatase 66 U/L (46-116); Anion Gap 5 (7-16); Aspartate Amino Transferase 25 U/L (0-34); BUN/Creatinine Ratio 12 Ratio (12-20); Bilirubin,Total 0.5 mg/dL (0.3-1.2); Blood Urea Nitrogen 7 mg/dL (9-23); Calcium 7.9 mg/dL (8.3-10.6); Calcium (Corrected) 8.9 mg/dL (8.5-10.1); Carbon Dioxide 27.7 mMol/L (20.0-31.0); Chloride 106 mMol/L (98-107); Creatinine (Component) 0.6 mg/dL (0.6-1.3); Estimated Creatinine Clearance 60.9 mL/min (>60); Globulin 2.2 gm/dL (2.3-3.5); Glucose 158 mg/dL (74-106); Magnesium 1.9 mg/dL (1.6-2.6); Osmolality,Calculated 278 (275-295); Phosphorous 3.1 mg/dL (2.4-5.1); Potassium 3.6 mMol/L (3.4-5.1); Sodium 139 mMol/L (136-145); eGFR > 60 See Note
--- NOTE | 2024-04-15 07:00 | XR_ITS ---
Examination: CT brain head without contrast. 2-D sagittal coronal reconstructions Date and time of exam:April 15, 2024 at 0840 hrs. Comparison April 14, 2024 Indications: Stroke alert April 14, 2024 altered mental status, dementia CTDI: vol (mGy):50.5 DLP: (mGycm):1098 Technique: Multiple CT axial sections of the brain have been obtained, 5 mm slice thickness. Contrast has not been administered. 2-D sagittal, coronal reconstructions have been obtained Low dose protocols were performed. One or more of the following dose reduction techniques were used; automated exposure control, adjustment of the mA and/or KV according to patient size, use of iterative reconstruction technique. Findings: No significant ventricular enlargement. Intra-axial or extra-axial hemorrhage density is not seen. No mass effect or midline shift Basal cisterns are not remarkable. Fourth ventricle is midline. Cranial vault intact. Impression: Negative for acute hemorrhage, mass effect or midline shift Prominent chronic microvascular white matter change Regular brain MRI follow-up would best assess for acute ischemic change as well as chronic multi-infarct dementia pattern
[2024-04-15 08:00] VITALS: BP 119/69; PULSE 88; RESP 16; TEMP 36.8; O2SAT 97
[2024-04-15] MEDS: Magnesium Sulfate 2 GM Ivpb 2 GM/50 ML BAG IV (09:51)
[2024-04-15] MEDS: NAPH,KPH MBDB 1 PACKET (1.5 GM) 2 PACKET PO (09:52)
[2024-04-15] MEDS: POTASSIUM CHLORIDE 10% 20 MEQ/15 ML UDC 40 MEQ GT (09:52)
[2024-04-15] MEDS: DIVALPROEX SOD EC 125 MG TABEC PO ×2 (10:27→21:59)
[2024-04-15] MEDS: MEMANTINE HCL 5 MG TABLET PO ×2 (10:28→21:59)
[2024-04-15] MEDS: QUEtiapine FUMARATE 25 MG TABLET 50 MG PO ×2 (10:29→21:58)
[2024-04-15] MEDS: VENLAFAXINE XR 37.5 MG CAPCR 150 MG PO (10:29)
[2024-04-15] MEDS: THIAMINE 100 MG TABLET PO (10:30)
[2024-04-15] MEDS: FLUTICASONE NAS SPRAY 0.05% 16 GM BTL 1 SPRAY NASAL (10:30)
[2024-04-15] MEDS: ASPIRIN 81 MG CHEW PO (10:30)
[2024-04-15] MEDS: PANTOPRAZOLE INJ 40 MG VIAL IVP (10:30)
[2024-04-15 10:38] VITALS: BMI 17.4
--- NOTE | 2024-04-15 10:52 | ESDS_ITS ---
<Statement entered by Shannan Rachel MD - 04/18/24 12:22> I reviewed above note and agree with findings and plans. I have also personally examined the patient with medicine team and went over assessment and plan with medical team including cisco certified internetwork expert and resident physician. Planned Discharge Date 04/15/24 DS: Providers Provider Date of admission: 04/14/24 13:25 Primary care physician: Darien Brewer MD Admitting Provider: Shannan Rachel MD Attending Provider on Admission: Shannan Rachel MD Consults: 04/12/24 13:47 Consult to Gastroenterology Stat Comment: Per G-tube placement Consulting Provider: Catrachita Frankel 04/12/24 15:34 Consult to Gastroenterology Stat Comment: Consulting Provider: Catrachita Frankel 04/12/24 15:57 Referral Speech Therapy Routine Comment: 04/12/24 19:22 Referral Registered Dietitian Routine Comment: PEG tube feed 04/12/24 20:12 Referral Registered Dietitian Routine Comment: 04/13/24 16:32 Referral Physical Therapy Routine Comment: Physician Instructions: 04/13/24 20:29 Referral Registered Dietitian Routine Comment: Instructions: MAY USE PEG TUBE FOR FEEDING NOW 04/14/24 08:47 Consult to Neurology / Tele-Neurology Routine Comment: Consulting Provider: Vladimir Perez Referral Speech Therapy Routine Comment: 04/15/24 07:59 Referral Physical Therapy Stat Comment: Please ascess nita as we will DC her today. Thanks Physician Instructions: Attending Provider on DC: Dr. Shannan Rachel MD Discharging Provider: Dr. Shannan Rachel MD DS: Diagnosis Problem List Completed Was Problem List Reviewed/Reconciled?: Yes Hospital Course Hospital Course Hospital course: This is a 79-year-old female with PMHx of advanced vascular dementia, HTN, nonambulatory, denting from SNF for failure to thrive and decreased oral intake. Admitted for FOT. She underwent PEG tube placement with GI. During the stay, patient had an episode of aphasia and worsening mentation for which a stroke alert was called. Head CT and CTA head/neck did not show any acute pathology including bleed or hemorrhage or vessel occlusion. MRI was not performed secondary to implanted neurostimulation device. Repeat CT head was also negative for acute pathology. Neurology was following who suggested TIA versus progression of her baseline dementia. No continued medical intervention or ANTIPLATELET therapy is indicated at this time. She is back to baseline. Passed swallow eval, and tolerating oral intake. She will discharge to correction facility. PATIENT INSTRUCTIONS: Follow-up with PCP within 1-2 weeks of discharge. Follow-up with neurology, Dr. Perez, within 1-2 weeks of discharge. Return to Emergency Room if symptoms persist, worsen, or new symptoms develop. Continue taking home medications as prescribed by your doctor. You may continue with oral fluids, oral medications as tolerated. Continue feeding through PEG tube use and instructions below: * Jevity 1.2 at 20 ml/hr x 24 hrs (do not advance). * If no IV fluids, water flushes 25 ml/hr (or per MD). * Thiamine 100mg/day for 7 days; provide first dose at least 30 minutes before starting nutrition. * Multivitamins/Minerals. * Daily labs for P, K, and Mg; replace as needed. * If no electrolytes disturbances after 24 hrs, advance 10 ml every 12 hrs to goal rate of 60ml/hr x 24 hrs. ADMISSION DIAGNOSES: TIA Aphasia Failure to thrive Protein caloric malnutrition Cachexia Electrolyte abnormalities Hypotension Lactic acidosis (resolved) Hypernatremia (resolved) Tachycardia (resolved) Advanced vascular dementia Allergic rhinitis GERD Patient case was discussed with attending, Dr. Shannan Rachel MD and senior residents Dr. Mclean and Dr. Ontiveros. Rafael Myers, PGYI Senior Resident Attestation: I discussed with and supervised the cisco certified internetwork expert physician involved in the care of this patient. I personally saw and examined the patient and discussed the assessment and plan with the entire medicine team, including my attending. I agree with the discharge plan as documented above. Kwesi Ontiveros MD PGY2 Internal Medicine Time Spent with Patient Time attestation: Total time spent providing and/or coordinating discharge services: Greater than 35 minutes. Exam Vital Signs Temp Pulse Resp BP Pulse Ox O2 Del Method O2 Flow Rate 98.2 F 88 16 119/69 97 Room Air 5 04/15/24 08:00 04/15/24 08:00 04/15/24 08:00 04/15/24 08:00 04/15/24 08:00 04/15/24 08:00 04/14/24 16:00 Narrative Exam GENERAL * Frail, cachectic, generally weak generally female, appears in mild distress HEENT * NCAT.?SENA. Moist oral mucosa. Patent Nares NECK * Supple, nontender, no thyromegaly, no meningismus, no JVD, no step offs CHEST * RRR, no m/g/r * CTAB, no w/r/r. Symmetrical chest rise. No intercostal subcostal retraction * Atraumatic, nontender, no crepitus, symmetrical expansion. ABDOMEN * Soft, flat, nontender. No guarding/rebound tenderness/masses. * Bowel sounds presents * PEG tube in place, and intact. No erythema or discharge around stoma. EXTREMITIES * Nontender, no cyanosis, no edema * No edema/cyanosis.? SKIN * Warm, dry, decreased skin turgor. NEUROMUSCULAR * No lumbar or midline, no CVA, no paraspinal muscle spasm or tenderness. * Moves all 4 extremities well, with full ROM and good CSM. * No focal neurologic deficits. PSYCHIATRY * Appears confused, not cooperative, denying further physical exam Discharge Plan Plan Patient Disposition: Xfer Skilled Nsg Fac (SNF) Care Plan Goals: Please follow-up with your PCP within 1 week of discharge, please get electrolyte panel done -Continue with all medicines as prescribed before -Recommended to return back to emergency department if there is any significant issue with your PEG tube Trophic feeds of Jevity 1.2 at 20 ml/hr via PEG tube by pump. Advance 10 ml every 8 hrs to goal rate of 60 ml/hr x 24 hrs. If no IV fluids, water flushes of 25 ml/hr (or per MD). Provides: 1728 kcal, 80 g prot, 1162 ml free water, 1440 ml total volume Thiamine 100mg/day for 7 days; provide first dose at least 30 minutes before starting nutrition. Multivitamins/Minerals. Prescriptions/Referrals Prescriptions/Med Rec: New multivitamin with minerals Liquid 10 ml feeding tube QDAY Qty: 237 0RF thiamine HCl (vitamin B1) 100 mg tablet 100 mg feeding tube QDAY Qty: 14 0RF Continued divalproex [Depakote] 125 mg Tablet,Delayed Release (Dr/Ec) 125 mg PO BID oxycodone-acetaminophen 5-325 mg Tablet 1 tab PO Q8H PRN (Reason: Pain (Scale Score 7-10)) docusate sodium 100 mg Capsule 100 mg PO QDAY memantine 5 mg Tablet 5 mg PO BID venlafaxine [Effexor XR] 150 mg Capsule,Extended Release 24hr 150 mg PO QDAY thiamine HCl (vitamin B1) 100 mg Tablet 200 mg PO QDAY melatonin 3 mg Tablet 3 mg PO HS PRN (Reason: Insomnia) ferrous sulfate 324 mg (65 mg iron) Tablet,Delayed Release (Dr/Ec) 324 mg PO QDAY calcium carbonate-vitamin D3 [Oyster Shell + D3] 250 mg-3.125 mcg (125 unit) Tablet 1 tab PO QDAY cholecalciferol (vitamin D3) 25 mcg (1,000 unit) Tablet 50 mcg PO QDAY ondansetron HCl 4 mg Tablet 4 mg PO Q6H PRN (Reason: Nausea) acetaminophen 325 mg Tablet 650 mg PO Q8H PRN (Reason: Pain (Scale Score 4-6)) quetiapine 100 mg tablet 50 mg PO BID fluticasone propionate 50 mcg/actuation Vanduser,Suspension 1 spray INTRANASAL DAILY Rx Instructions: administer into each nostril Referrals: Darien Brewer MD [Primary Care Provider] - Patient/Caregiver Discharge Instructions Discharge Activity: activity as tolerated Education Materials: Understanding PEG Tube Feeding Print Language: Urdu Stand Alone Forms: Jody Award Info., Patient Portal Info Letter Discharge Order Discharge Orders: Discharge (Routine); Ordered 04/15/24 Ordered By: Rafael Myers Quality Discharge Quality Measures VTE prophylaxis
[2024-04-15 12:00] VITALS: BP 104/64; PULSE 99; RESP 16; TEMP 36.6; O2SAT 95
--- NOTE | 2024-04-15 12:12 | PC.SS ---
Addendum entered by Cami Cruz 04/15/24 16:08: SS met with patient's daughter Delfina and patient at bedside to confirm discharge plan. Patient's daughter Delfina requested patient not return to [facility] and is requesting a different SNF in the [place] or [place] area. SS explained to [facility]Fs have declined referral due to lack of bed availability, out of network insurance, and are unable to meet patient's needs. [facility] is only accepting facility at this time. MILLER Vieyra made aware. SS to continue finding placement for patient. Original Note: SS attempted to contact patient's daughter Delfina [phone] to follow up on discharge plan, left message requesting a return call. Only accepting facility is [facility]. Per previous SS notes, patient's daughter Delfina is requesting a different SNF and prefers SNF in the [place] area. No accepting facilities in the [place] area at this time due to lack of beds, out of network insurance, and unable to meet needs.
[2024-04-15 12:16] VITALS: BMI 12.0
--- NOTE | 2024-04-15 12:31 | PC.PT ---
04/15/2024 PT eval performed w/ dtr present. Patient reporting pain at RLE at times during eval and puts hand on thigh when asked where it is. ECF placement with PT recommended to work on transfers that patient reportedly was indep with prior to hospitalization
--- NOTE | 2024-04-15 15:31 | ESPR_ITS ---
Documentation for date of: 04/15/24 Subjective Subjective Interval history: Downward trending hemoglobin hematocrit at 10.6 and 33.3 Patient does have a shallow gastric ulcer in the region of the antrum prepyloric region No visible blood vessel PEG site looks good Exam Vital Signs Temp Pulse Resp BP Pulse Ox O2 Del Method O2 Flow Rate 98.2 F 88 16 119/69 97 Room Air 5 04/15/24 08:00 04/15/24 08:00 04/15/24 08:00 04/15/24 08:00 04/15/24 08:00 04/15/24 08:00 04/14/24 16:00 Routine Respiratory Exam Comments: Normal to auscultation Routine Abdominal Exam Comments: Soft nontender Objective Labs 04/15/24 05:15 04/15/24 05:15 Labs: Laboratory Results - last 24 hr 04/14/24 04/15/24 20:38 05:15 WBC 7.9 RBC 3.56 L Hgb 10.6 L Hct 33.3 L MCV 94 MCH 29.8 MCHC 31.8 RDW Std Deviation 46.6 H Plt Count 224 D Neut % (Auto) 63 Lymph % (Auto) 25 [place] % (Auto) 10 Eos % (Auto) 1 Baso % (Auto) 0 Neut # (Auto) 5.0 Lymph # (Auto) 2.0 [place] # (Auto) 0.8 Eos # (Auto) 0.1 Baso # (Auto) 0.0 Immature Gran # (Auto) 0.03 H Absolute Nucleated RBC 0.00 Immature Gran % 0 Nucleated RBC % 0 Puncture Site Left Radial ABG pH 7.42 ABG pCO2 43 ABG pO2 79 L ABG HCO3 27 H ABG O2 Saturation 97 ABG Base Excess 2 FiO2 21 Sodium 139 Potassium 3.6 Chloride 106 Carbon Dioxide 27.7 Anion Gap 5 L BUN 7 L Creatinine 0.6 Estim Creat Clear Calc 60.9 L eGFR > 60 BUN/Creatinine Ratio 12 Glucose 158 H Calculated Osmolality 278 Calcium 7.9 L Corrected Calcium 8.9 Phosphorus 3.1 Magnesium 1.9 Total Bilirubin 0.5 AST 25 ALT 24 Alkaline Phosphatase 66 Total Protein 5.0 L Albumin 2.8 L D Globulin 2.2 L Albumin/Globulin Ratio 1.3 Impressions Impression: # Failure to thrive # Poor p.o. intake Supplementation via the PEG tube ABG Interpretation ABG results: 04/14/24 20:38 ABG pH 7.42 ABG pCO2 43 ABG pO2 79 L ABG HCO3 27 H ABG O2 Saturation 97 ABG Base Excess 2 Assessment & Plan A&P Narrative # Failure to thrive # Abnormal weight loss # Dementia Plan Placement of percutaneous endoscopic gastrostomy tube via fiberoptic esophagogastroduodenoscopy under intravenous moderate sedation Ancef 1 g IV piggyback on-call to end[facility] Thank you very much for the opportunity to participate in the care of this patient Time Spent With Patient Time: Total time spent is greater than 50% in coordination of care (as documented) at patient's floor/unit and/or counseling patient:
[2024-04-15 16:00] VITALS: BP 102/57; PULSE 96; RESP 16; TEMP 36.6; O2SAT 95
[2024-04-15] MEDS: GLYCERIN, ADULT 1 EA SUPP 1 EACH PR (16:34)
[2024-04-15] MEDS: DOCUSATE SOD 100 MG CAPSULE PO (16:34)
[2024-04-15] MEDS: HYDROcodone/APAP 10/325 TAB PO ×2 (16:59→21:58)
[2024-04-15 20:00] VITALS: BP 117/77; PULSE 98; RESP 17; TEMP 36.3; O2SAT 93
[2024-04-16] VITALS: BP 102/54; PULSE 95; RESP 17; TEMP 36.3; O2SAT 95
[2024-04-16 04:00] VITALS: BP 95/66; PULSE 89; RESP 17; TEMP 36.3; O2SAT 96
[2024-04-16] MEDS: HEPARIN SOD INJ 5000 UNIT/ML VIAL SC ×3 (05:28→21:13)
[2024-04-16] MEDS: HYDROcodone/APAP 10/325 TAB PO ×3 (05:28→22:14)
[2024-04-16] MEDS: AMPICILLIN/SULBAC INJ 3 GM in SODIUM CHLORIDE 0.9% 100 ML IV ×3 (05:28→17:41)
[2024-04-16 05:46] LABS: Basophils % (Auto) 0 % (0-2.5); Eosinophils # (Auto) 0.2 Thou/mm3 (0.0-0.5); Eosinophils % (Auto) 2 % (0-10); Hematocrit 32.4 % (36.0-46.0); Hemoglobin 10.8 g/dL (12.0-16.0); Immature Granulocytes % (Auto) 0 % (0-0); Immature Granulocytes Auto 0.03 Thou/mm3 (0.00-0.00); Lymphocytes # (Auto) 2.3 Thou/mm3 (1.0-4.8); Lymphocytes % (Auto) 31 % (10-50); Mean Corpuscular HGB Conc 33.3 g/dl (31.0-37.0); Mean Corpuscular Hemoglobin 30.5 pg (25.0-35.0); Mean Corpuscular Volume 92 fL (80-100); Monocytes # (Auto) 0.7 Thou/mm3 (0.0-0.8); Monocytes % (Auto) 9 % (0-12); Neutrophils # (Auto) 4.2 Thou/mm3 (1.8-7.7); Neutrophils % (Auto) 57 % (37-80); Nucleated Red Blood Cell % 0 /100 WBC (0); Platelet Count 231 Thou/mm3 (140-440); RDW Standard Deviation 46.5 fL (36.4-46.3); Red Blood Count 3.54 Miln/mm3 (4.00-5.20); White Blood Count 7.5 Thou/mm3 (3.6-11.0)
[2024-04-16 06:14] LABS: Alanine Aminotransferase 18 U/L (10-49); Albumin, Serum 2.9 gm/dL (3.4-4.8); Albumin/Globulin Ratio 1.3 (1.2-2.2); Alkaline Phosphatase 72 U/L (46-116); Anion Gap 6 (7-16); Aspartate Amino Transferase 12 U/L (0-34); BUN/Creatinine Ratio 15 Ratio (12-20); Bilirubin,Total 0.4 mg/dL (0.3-1.2); Blood Urea Nitrogen 9 mg/dL (9-23); Calcium 8.3 mg/dL (8.3-10.6); Calcium (Corrected) 9.2 mg/dL (8.5-10.1); Carbon Dioxide 26.8 mMol/L (20.0-31.0); Chloride 106 mMol/L (98-107); Creatinine (Component) 0.6 mg/dL (0.6-1.3); Estimated Creatinine Clearance 60.9 mL/min (>60); Globulin 2.3 gm/dL (2.3-3.5); Glucose 102 mg/dL (74-106); Magnesium 2.2 mg/dL (1.6-2.6); Osmolality,Calculated 276 (275-295); Phosphorous 3.5 mg/dL (2.4-5.1); Sodium 139 mMol/L (136-145); Total Protein 5.2 gm/dL (5.7-8.2); eGFR > 60 See Note
[2024-04-16 08:00] VITALS: BP 112/81; PULSE 89; RESP 18; TEMP 35.9; O2SAT 95
--- NOTE | 2024-04-16 10:17 | PC.SS ---
Addendum entered by Cami Anthony 04/16/24 18:35: SS attempted to contact [facility] for confirmation, no success and a message was left for support. [facility] website reflecting appeal case has been initiated- #[id number] Addendum entered by Cami Cruz 04/16/24 18:33: Patient's daughter Delfina provided [facility] Case # [id number] for appeal. Receipt fax from [facility] has not been received. Addendum entered by Cami Anthony 04/16/24 11:33: MILLER Vieyra informed of appeal. Addendum entered by [facility] 04/16/24 11:29: SS met with patient's daughter Delfina at bedside to discuss discharge plan. Delfina stated she is no longer interested in [place] SNFs due to distance. SS provided the following options for patient, discharge to accepting SNF [facility] or discharge home with daughter Delfina. Patient's daughter Delfina declined both options. IMM provided to patient's daughter Delfina at bedside. Original Note: SS submitted SN[facility] referrals to [facility]. SNF referrals to [place] and [facility] have been submitted. No accepting facilities at this time. Patient continues to be declined to due lack of bed availability, out of network insurance, and unable to meet patient's medical needs. SS to follow up with patient's daughter Delfina and discuss discharge plan.
[2024-04-16] MEDS: PANTOPRAZOLE INJ 40 MG VIAL IVP (10:25)
[2024-04-16] MEDS: FLUTICASONE NAS SPRAY 0.05% 16 GM BTL 1 SPRAY NASAL ×2 (10:25→21:09)
[2024-04-16] MEDS: MULTIVITAMIN 15 ML UDC PO (10:26)
[2024-04-16] MEDS: DIVALPROEX SOD EC 125 MG TABEC PO ×2 (10:26→21:10)
[2024-04-16] MEDS: VENLAFAXINE XR 37.5 MG CAPCR 150 MG PO (10:26)
[2024-04-16] MEDS: ASPIRIN 81 MG CHEW PO (10:27)
[2024-04-16] MEDS: THIAMINE 100 MG TABLET PO (10:27)
[2024-04-16] MEDS: MEMANTINE HCL 5 MG TABLET PO ×2 (10:27→21:09)
[2024-04-16] MEDS: QUEtiapine FUMARATE 25 MG TABLET 50 MG PO ×2 (10:31→21:09)
[2024-04-16] MEDS: GLYCERIN, ADULT 1 EA SUPP 1 EACH PR (11:31)
[2024-04-16 12:00] VITALS: BP 132/87; PULSE 88; RESP 17; TEMP 36.6; O2SAT 94
--- NOTE | 2024-04-16 12:22 | PD.IMPROG ---
Documentation for date of: 04/16/24 Subjective Subjective Interval history: Agree with the discharge planning No need for GI follow-up She can be followed by the primary care physician Exam Vital Signs Temp Pulse Resp BP Pulse Ox O2 Del Method O2 Flow Rate 96.6 F L 89 18 112/81 95 Room Air 5 04/16/24 08:00 04/16/24 08:00 04/16/24 08:00 04/16/24 08:00 04/16/24 08:00 04/16/24 08:00 04/14/24 16:00 Objective Labs 04/16/24 04:52 04/16/24 04:52 Labs: Laboratory Results - last 24 hr 04/16/24 04:52 WBC 7.5 RBC 3.54 L Hgb 10.8 L Hct 32.4 L MCV 92 MCH 30.5 MCHC 33.3 RDW Std Deviation 46.5 H Plt Count 231 Neut % (Auto) 57 Lymph % (Auto) 31 [place] % (Auto) 9 Eos % (Auto) 2 Baso % (Auto) 0 Neut # (Auto) 4.2 Lymph # (Auto) 2.3 [place] # (Auto) 0.7 Eos # (Auto) 0.2 Baso # (Auto) 0.0 Immature Gran # (Auto) 0.03 H Absolute Nucleated RBC 0.00 Immature Gran % 0 Nucleated RBC % 0 Sodium 139 Potassium 4.0 Chloride 106 Carbon Dioxide 26.8 Anion Gap 6 L BUN 9 Creatinine 0.6 Estim Creat Clear Calc 60.9 L eGFR > 60 BUN/Creatinine Ratio 15 Glucose 102 D Calculated Osmolality 276 Calcium 8.3 Corrected Calcium 9.2 Phosphorus 3.5 Magnesium 2.2 Total Bilirubin 0.4 AST 12 ALT 18 Alkaline Phosphatase 72 Total Protein 5.2 L Albumin 2.9 L Globulin 2.3 Albumin/Globulin Ratio 1.3 Impressions Impression: # Failure to thrive # PEG placement for enteral hyperalimentation doing well ABG Interpretation ABG results: 04/14/24 20:38 ABG pH 7.42 ABG pCO2 43 ABG pO2 79 L ABG HCO3 27 H ABG O2 Saturation 97 ABG Base Excess 2 Assessment & Plan A&P Narrative # Failure to thrive # Abnormal weight loss # Dementia Plan Placement of percutaneous endoscopic gastrostomy tube via fiberoptic esophagogastroduodenoscopy under intravenous moderate sedation Ancef 1 g IV piggyback on-call to endoscopy N.p.o. at midnight [facility] Thank you very much for the opportunity to participate in the care of this patient Time Spent With Patient Time: Total time spent is greater than 50% in coordination of care (as documented) at patient's floor/unit and/or counseling patient:
--- NOTE | 2024-04-16 13:34 | ESDS_ITS ---
<Statement entered by Shannan Rachel MD - 04/21/24 15:07> I reviewed above note and agree with findings and plans. I have also personally examined the patient with medicine team and went over assessment and plan with medical team including internal combustion engine subassembler and resident physician. Planned Discharge Date 04/16/24 DS: Providers Provider Date of admission: 04/14/24 13:25 Primary care physician: Darien Brewer MD Admitting Provider: Shannan Rachel MD Attending Provider on Admission: Shannan Rachel MD Consults: 04/12/24 13:47 Consult to Gastroenterology Stat Comment: Per G-tube placement Consulting Provider: Catrachita Frankel 04/12/24 15:34 Consult to Gastroenterology Stat Comment: Consulting Provider: Catrachita Frankel 04/12/24 15:57 Referral Speech Therapy Routine Comment: 04/12/24 19:22 Referral Registered Dietitian Routine Comment: PEG tube feed 04/12/24 20:12 Referral Registered Dietitian Routine Comment: 04/13/24 16:32 Referral Physical Therapy Routine Comment: Physician Instructions: 04/13/24 20:29 Referral Registered Dietitian Routine Comment: Instructions: MAY USE PEG TUBE FOR FEEDING NOW 04/14/24 08:47 Consult to Neurology / Tele-Neurology Routine Comment: Consulting Provider: Vladimir Perez Referral Speech Therapy Routine Comment: 04/15/24 07:59 Referral Physical Therapy Stat Comment: Please ascess nita as we will DC her today. Thanks Physician Instructions: Attending Provider on DC: Fabi Mclean MD Discharging Provider: Fabi Mclean MD DS: Diagnosis Problem List Completed Was Problem List Reviewed/Reconciled?: Yes Hospital Course Hospital Course Hospital course: This is a 79-year-old female with PMHx of advanced vascular dementia, HTN, nonambulatory, denting from SNF for failure to thrive and decreased oral intake. Admitted for FOT. She underwent PEG tube placement with GI. During the stay, patient had an episode of aphasia and worsening mentation for which a stroke alert was called. Head CT and CTA head/neck did not show any acute pathology including bleed or hemorrhage or vessel occlusion. MRI was not performed secondary to implanted neurostimulation device. Repeat CT head was also negative for acute pathology. Neurology was following who suggested TIA versus progression of her baseline dementia. No continued medical intervention or ANTIPLATELET therapy is indicated at this time. She is back to baseline. Passed swallow eval, and tolerating oral intake. She will discharge to fdc facility. PATIENT INSTRUCTIONS: Follow-up with PCP within 1-2 weeks of discharge. Follow-up with neurology, Dr. Perez, within 1-2 weeks of discharge. Return to Emergency Room if symptoms persist, worsen, or new symptoms develop. Continue taking home medications as prescribed by your doctor. You may continue with oral fluids, oral medications as tolerated. Continue feeding through PEG tube use and instructions below: * Jevity 1.2 at 20 ml/hr x 24 hrs (do not advance). * If no IV fluids, water flushes 25 ml/hr (or per MD). * Thiamine 100mg/day for 7 days; provide first dose at least 30 minutes before starting nutrition. * Multivitamins/Minerals. * Daily labs for P, K, and Mg; replace as needed. * If no electrolytes disturbances after 24 hrs, advance 10 ml every 12 hrs to goal rate of 60ml/hr x 24 hrs. ADMISSION DIAGNOSES: TIA Aphasia Failure to thrive Protein caloric malnutrition Cachexia Electrolyte abnormalities Hypotension Lactic acidosis (resolved) Hypernatremia (resolved) Tachycardia (resolved) Advanced vascular dementia Allergic rhinitis GERD Patient case was discussed with attending, MD Fabi Olmos MD PGY-3 Time Spent with Patient Time attestation: Total time spent providing and/or coordinating discharge services:>30 min Exam Vital Signs Temp Pulse Resp BP Pulse Ox O2 Del Method O2 Flow Rate 97.8 F 88 17 132/87 H 94 L Room Air 5 04/16/24 12:04/16/24 12:04/16/24 12:04/16/24 12:04/16/24 12:04/16/24 12:04/14/24 16:00 Narrative Exam GENERAL * Frail, cachectic, generally weak generally female, appears in mild distress HEENT * NCAT.?SENA. Moist oral mucosa. Patent Nares NECK * Supple, nontender, no thyromegaly, no meningismus, no JVD, no step offs CHEST * RRR, no m/g/r * CTAB, no w/r/r. Symmetrical chest rise. No intercostal subcostal retraction * Atraumatic, nontender, no crepitus, symmetrical expansion. ABDOMEN * Soft, flat, nontender. No guarding/rebound tenderness/masses. * Bowel sounds presents * PEG tube in place, and intact. No erythema or discharge around stoma. EXTREMITIES * Nontender, no cyanosis, no edema * No edema/cyanosis.? SKIN * Warm, dry, decreased skin turgor. NEUROMUSCULAR * No lumbar or midline, no CVA, no paraspinal muscle spasm or tenderness. * Moves all 4 extremities well, with full ROM and good CSM. * No focal neurologic deficits. PSYCHIATRY * Mentation waxing and wanning,cooperative Discharge Plan Plan Patient Disposition: Xfer Skilled Nsg Fac (SNF) Care Plan Goals: Please follow-up with your PCP within 1 week of discharge, please get electrolyte panel done -Continue with all medicines as prescribed before -Recommended to return back to emergency department if there is any significant issue with your PEG tube Trophic feeds of Jevity 1.2 at 20 ml/hr via PEG tube by pump. Advance 10 ml every 8 hrs to goal rate of 60 ml/hr x 24 hrs. If no IV fluids, water flushes of 25 ml/hr (or per MD). Provides: 1728 kcal, 80 g prot, 1162 ml free water, 1440 ml total volume Thiamine 100mg/day for 7 days; provide first dose at least 30 minutes before starting nutrition. Multivitamins/Minerals. Prescriptions/Referrals Prescriptions/Med Rec: New multivitamin with minerals Liquid 10 ml feeding tube QDAY Qty: 237 0RF thiamine HCl (vitamin B1) 100 mg tablet 100 mg feeding tube QDAY Qty: 14 0RF Continued divalproex [Depakote] 125 mg Tablet,Delayed Release (Dr/Ec) 125 mg PO BID oxycodone-acetaminophen 5-325 mg Tablet 1 tab PO Q8H PRN (Reason: Pain (Scale Score 7-10)) docusate sodium 100 mg Capsule 100 mg PO QDAY memantine 5 mg Tablet 5 mg PO BID venlafaxine [Effexor XR] 150 mg Capsule,Extended Release 24hr 150 mg PO QDAY thiamine HCl (vitamin B1) 100 mg Tablet 200 mg PO QDAY melatonin 3 mg Tablet 3 mg PO HS PRN (Reason: Insomnia) ferrous sulfate 324 mg (65 mg iron) Tablet,Delayed Release (Dr/Ec) 324 mg PO QDAY calcium carbonate-vitamin D3 [Oyster Shell + D3] 250 mg-3.125 mcg (125 unit) Tablet 1 tab PO QDAY cholecalciferol (vitamin D3) 25 mcg (1,000 unit) Tablet 50 mcg PO QDAY ondansetron HCl 4 mg Tablet 4 mg PO Q6H PRN (Reason: Nausea) acetaminophen 325 mg Tablet 650 mg PO Q8H PRN (Reason: Pain (Scale Score 4-6)) quetiapine 100 mg tablet 50 mg PO BID fluticasone propionate 50 mcg/actuation [place],Suspension 1 spray INTRANASAL DAILY Rx Instructions: administer into each nostril Referrals: Darien Brewer MD [Primary Care Provider] - Patient/Caregiver Discharge Instructions Discharge Activity: activity as tolerated Education Materials: Understanding PEG Tube Feeding Print Language: Malay Stand Alone Forms: Jody Award Info., Patient Portal Info Letter Discharge Order Discharge Orders: Discharge (Routine); Ordered 04/16/24 Ordered By: Fabi Mclean Quality Discharge Quality Measures VTE prophylaxis
[2024-04-16] MEDS: oxyCODONE/APAP 5/325 TABLET 1 TAB PO (14:10)
[2024-04-16 16:00] VITALS: BP 109/66; PULSE 91; RESP 18; TEMP 36.1; O2SAT 96
[2024-04-16 20:00] VITALS: BP 106/60; PULSE 81; RESP 20; TEMP 36.8; O2SAT 93
--- NOTE | 2024-04-16 23:40 | PD.VPROG1 ---
Telemedicine visit statement This visit was conducted with the use of interactive audio and video telecommunications system that permits real time communication between the patient and the provider. Patient's verbal consent for virtual visit was obtained on 04/16/24 at 2340. Documentation for date of: 04/16/24 Subjective Subjective Interval history: Patient is in medsurg, tolerating feeding well at goal rate. At times, she is able to swallow meds by mouth and at times, she gets confused. She does have baseline dementia. Virtual exam Vital Signs Temp Pulse Resp BP Pulse Ox O2 Del Method O2 Flow Rate 98.2 F 81 20 106/60 93 L Room Air 5 04/16/24 20:00 04/16/24 20:00 04/16/24 20:00 04/16/24 20:00 04/16/24 20:00 04/16/24 20:00 04/14/24 16:00 Objective Labs 04/16/24 04:52 04/16/24 04:52 Labs: Laboratory Results - last 24 hr 04/16/24 04:52 WBC 7.5 RBC 3.54 L Hgb 10.8 L Hct 32.4 L MCV 92 MCH 30.5 MCHC 33.3 RDW Std Deviation 46.5 H Plt Count 231 Neut % (Auto) 57 Lymph % (Auto) 31 [place] % (Auto) 9 Eos % (Auto) 2 Baso % (Auto) 0 Neut # (Auto) 4.2 Lymph # (Auto) 2.3 [place] # (Auto) 0.7 Eos # (Auto) 0.2 Baso # (Auto) 0.0 Immature Gran # (Auto) 0.03 H Absolute Nucleated RBC 0.00 Immature Gran % 0 Nucleated RBC % 0 Sodium 139 Potassium 4.0 Chloride 106 Carbon Dioxide 26.8 Anion Gap 6 L BUN 9 Creatinine 0.6 Estim Creat Clear Calc 60.9 L eGFR > 60 BUN/Creatinine Ratio 15 Glucose 102 D Calculated Osmolality 276 Calcium 8.3 Corrected Calcium 9.2 Phosphorus 3.5 Magnesium 2.2 Total Bilirubin 0.4 AST 12 ALT 18 Alkaline Phosphatase 72 Total Protein 5.2 L Albumin 2.9 L Globulin 2.3 Albumin/Globulin Ratio 1.3 ABG Interpretation ABG results: 04/14/24 20:38 ABG pH 7.42 ABG pCO2 43 ABG pO2 79 L ABG HCO3 27 H ABG O2 Saturation 97 ABG Base Excess 2 Assessment & Plan Problem List (1) Adult failure to thrive: Status: Chronic Assessment and plan: stable. noted significantly Spastic in the lower extremities Her rehab potential and her prognosis is not good. (2) Dementia: Status: Chronic Assessment and plan: At baseline tolerating tube feeding to the goal. placement pending as the daughter wants to take her to facilities other than [facility].
[2024-04-17] VITALS: BP 108/77; PULSE 92; RESP 18; TEMP 36.7; O2SAT 95
[2024-04-17 04:00] VITALS: BP 99/56; PULSE 100; RESP 20; TEMP 37; O2SAT 94
[2024-04-17] MEDS: AMPICILLIN/SULBAC INJ 3 GM in SODIUM CHLORIDE 0.9% 100 ML IV ×3 (05:00→13:12)
[2024-04-17] MEDS: HEPARIN SOD INJ 5000 UNIT/ML VIAL SC ×3 (05:01→21:14)
[2024-04-17 07:52] VITALS: BP 110/73; PULSE 77; RESP 15; TEMP 36.5; O2SAT 95
--- NOTE | 2024-04-17 08:56 | PC.SS ---
Follow up note: Patient ready for d/c. However, daughter, filed an appeal yesterday and we are waiting on response. SS reviewed documentation and patient will be discharging to [facility].
[2024-04-17] MEDS: FLUTICASONE NAS SPRAY 0.05% 16 GM BTL 1 SPRAY NASAL ×2 (09:01→21:11)
[2024-04-17] MEDS: PANTOPRAZOLE 40 MG TABLET PO (09:02)
[2024-04-17] MEDS: THIAMINE 100 MG TABLET PO (09:02)
[2024-04-17] MEDS: VENLAFAXINE XR 37.5 MG CAPCR 150 MG PO (09:02)
[2024-04-17] MEDS: MEMANTINE HCL 5 MG TABLET PO ×2 (09:02→21:11)
[2024-04-17] MEDS: QUEtiapine FUMARATE 25 MG TABLET 50 MG PO ×2 (09:02→21:11)
[2024-04-17] MEDS: ASPIRIN 81 MG CHEW PO (09:02)
[2024-04-17] MEDS: DIVALPROEX SOD EC 125 MG TABEC PO ×2 (09:02→21:10)
[2024-04-17] MEDS: MULTIVITAMIN 15 ML UDC PO (09:02)
[2024-04-17 12:00] VITALS: BP 105/73; PULSE 101; RESP 16; TEMP 36.9; O2SAT 95
--- NOTE | 2024-04-17 12:40 | PC.SS ---
Addendum entered by Adriana Thrasher 04/17/24 15:23: SS follow up note; [facility] Declined patient, due to behaviors. Addendum entered by Adriana Thrasher 04/17/24 15:08: SS follow up note; [facility] is considering in accepting patient. Addendum entered by Adriana Thrasher 04/17/24 14:43: SS met with patients daughter at bedside and informed her that SS received a notice from patient's medicare insurance explaining that services will be terminated on 04/16/24. Patient's daughter expressed she does not want [facility]. Original Note: SS follow up note; Appeal was sent out this morning to [place].
--- NOTE | 2024-04-17 13:38 | ESDS_ITS ---
<Statement entered by Shannan Rachel MD - 04/23/24 16:26> I reviewed above note and agree with findings and plans. I have also personally examined the patient with medicine team and went over assessment and plan with medical team including r d internship and resident physician. Planned Discharge Date 04/17/24 DS: Providers Provider Date of admission: 04/14/24 13:25 Primary care physician: Darien Brewer MD Admitting Provider: Shannan Rachel MD Attending Provider on Admission: Shannan Rachel MD Consults: 04/12/24 13:47 Consult to Gastroenterology Stat Comment: Per G-tube placement Consulting Provider: Catrachita Frankel 04/12/24 15:34 Consult to Gastroenterology Stat Comment: Consulting Provider: Catrachita Frankel 04/12/24 15:57 Referral Speech Therapy Routine Comment: 04/12/24 19:22 Referral Registered Dietitian Routine Comment: PEG tube feed 04/12/24 20:12 Referral Registered Dietitian Routine Comment: 04/13/24 16:32 Referral Physical Therapy Routine Comment: Physician Instructions: 04/13/24 20:29 Referral Registered Dietitian Routine Comment: Instructions: MAY USE PEG TUBE FOR FEEDING NOW 04/14/24 08:47 Consult to Neurology / Tele-Neurology Routine Comment: Consulting Provider: Vladimir Perez Referral Speech Therapy Routine Comment: 04/15/24 07:59 Referral Physical Therapy Stat Comment: Please ascess nita as we will DC her today. Thanks Physician Instructions: Attending Provider on DC: Shannan Rachel MD Discharging Provider: Shannan Rachel MD DS: Diagnosis Problem List Completed Was Problem List Reviewed/Reconciled?: Yes Hospital Course Hospital Course Hospital course: This is a 79-year-old female with PMHx of advanced vascular dementia, HTN, nonambulatory, denting from SNF for failure to thrive and decreased oral intake. Admitted for FOT. She underwent PEG tube placement with GI. During the stay, patient had an episode of aphasia and worsening mentation for which a stroke alert was called. Head CT and CTA head/neck did not show any acute pathology including bleed or hemorrhage or vessel occlusion. MRI was not performed secondary to implanted neurostimulation device. Repeat CT head was also negative for acute pathology. Neurology was following who suggested TIA versus progression of her baseline dementia. No continued medical intervention or ANTIPLATELET therapy is indicated at this time. She is back to baseline. Passed swallow eval, and tolerating oral intake. Patient had an episode of aspiration pneumonia for which he completed 3 days of UNASYN. Patient medically cleared to discharge from the hospitalist standpoint. Currently had appealed discharge. Currently pending SNF placement. PATIENT INSTRUCTIONS: Follow-up with PCP within 1-2 weeks of discharge. Follow-up with neurology, Dr. Perez, within 1-2 weeks of discharge. Return to Emergency Room if symptoms persist, worsen, or new symptoms develop. Continue taking home medications as prescribed by your doctor. You may continue with oral fluids, oral medications as tolerated. Continue feeding through PEG tube use and instructions below: * Water flushes 25 ml/hr (or per MD). * Thiamine 100mg/day for 7 days; provide first dose at least 30 minutes before starting nutrition. * Multivitamins/Minerals. * Continue tube feed with goal rate of 60ml/hr x 24 hrs. ADMISSION DIAGNOSES: TIA Aphasia Failure to thrive Protein caloric malnutrition Cachexia Electrolyte abnormalities Hypotension Lactic acidosis (resolved) Hypernatremia (resolved) Tachycardia (resolved) Advanced vascular dementia Allergic rhinitis GERD Patient case was discussed with attending, Dr. Shannan Rachel MD and my senior resident Dr. Weston MD, PGY2 Rafael Myers MD PGY1 Senior Resident Attestation: I discussed with and supervised the r d internship physician involved in the care of this patient. I personally saw and examined the patient and discussed the assessment and plan with the entire medicine team, including my attending. I agree with the discharge plan as documented above. Kwesi Ontiveros MD PGY2 Internal Medicine Time Spent with Patient Time attestation: Total time spent providing and/or coordinating discharge services: Greater than 35 minutes. Exam Vital Signs Temp Pulse Resp BP Pulse Ox O2 Del Method O2 Flow Rate 98.4 F 101 H 16 105/73 95 Room Air 5 04/17/24 12:04/17/24 12:04/17/24 12:04/17/24 12:04/17/24 12:04/17/24 12:04/14/24 16:00 Narrative Exam GENERAL * Frail, cachectic, generally weak generally female, appears in mild distress HEENT * NCAT.?SENA. Moist oral mucosa. Patent Nares NECK * Supple, nontender, no thyromegaly, no meningismus, no JVD, no step offs CHEST * RRR, no m/g/r * CTAB, no w/r/r. Symmetrical chest rise. No intercostal subcostal retraction * Atraumatic, nontender, no crepitus, symmetrical expansion. ABDOMEN * Soft, flat, nontender. No guarding/rebound tenderness/masses. * Bowel sounds presents * PEG tube in place, and intact. No erythema or discharge around stoma. EXTREMITIES * Nontender, no cyanosis, no edema * No edema/cyanosis.? SKIN * Warm, dry, decreased skin turgor. NEUROMUSCULAR * No lumbar or midline, no CVA, no paraspinal muscle spasm or tenderness. * Moves all 4 extremities well, with full ROM and good CSM. * No focal neurologic deficits. PSYCHIATRY * Mentation waxing and wanning,cooperative Discharge Plan Plan Patient Disposition: Xfer Skilled Nsg Fac (SNF) Care Plan Goals: Please follow-up with your PCP within 1 week of discharge, please get electrolyte panel done -Continue with all medicines as prescribed before -No antihypertensive medications -Recommended to return back to emergency department if there is any significant issue with your PEG tube Trophic feeds of Jevity 1.2 at 20 ml/hr via PEG tube by pump. Advance 10 ml every 8 hrs to goal rate of 60 ml/hr x 24 hrs. If no IV fluids, water flushes of 25 ml/hr (or per MD). Provides: 1728 kcal, 80 g prot, 1162 ml free water, 1440 ml total volume Thiamine 100mg/day for 7 days; provide first dose at least 30 minutes before starting nutrition. Multivitamins/Minerals. Prescriptions/Referrals Prescriptions/Med Rec: New multivitamin with minerals Liquid 10 ml feeding tube QDAY Qty: 237 0RF thiamine HCl (vitamin B1) 100 mg tablet 100 mg feeding tube QDAY Qty: 14 0RF Continued divalproex [Depakote] 125 mg Tablet,Delayed Release (Dr/Ec) 125 mg PO BID oxycodone-acetaminophen 5-325 mg Tablet 1 tab PO Q8H PRN (Reason: Pain (Scale Score 7-10)) docusate sodium 100 mg Capsule 100 mg PO QDAY memantine 5 mg Tablet 5 mg PO BID venlafaxine [Effexor XR] 150 mg Capsule,Extended Release 24hr 150 mg PO QDAY thiamine HCl (vitamin B1) 100 mg Tablet 200 mg PO QDAY melatonin 3 mg Tablet 3 mg PO HS PRN (Reason: Insomnia) ferrous sulfate 324 mg (65 mg iron) Tablet,Delayed Release (Dr/Ec) 324 mg PO QDAY calcium carbonate-vitamin D3 [Oyster Shell + D3] 250 mg-3.125 mcg (125 unit) Tablet 1 tab PO QDAY cholecalciferol (vitamin D3) 25 mcg (1,000 unit) Tablet 50 mcg PO QDAY ondansetron HCl 4 mg Tablet 4 mg PO Q6H PRN (Reason: Nausea) acetaminophen 325 mg Tablet 650 mg PO Q8H PRN (Reason: Pain (Scale Score 4-6)) quetiapine 100 mg tablet 50 mg PO BID fluticasone propionate 50 mcg/actuation [place],Suspension 1 spray INTRANASAL DAILY Rx Instructions: administer into each nostril Referrals: Darien Brewer MD [Primary Care Provider] - Patient/Caregiver Discharge Instructions Discharge Activity: activity as tolerated Education Materials: Understanding PEG Tube Feeding Print Language: Slovenian Stand Alone Forms: Jody Award Info., Patient Portal Info Letter Discharge Order Discharge Orders: Discharge (Routine); Ordered 04/16/24 Ordered By: Fabi Mclean Quality Discharge Quality Measures VTE prophylaxis
[2024-04-17] MEDS: HYDROcodone/APAP 10/325 TAB PO (15:01)
[2024-04-17 16:00] VITALS: BP 121/76; PULSE 77; RESP 16; TEMP 36.8; O2SAT 97
[2024-04-17 20:00] VITALS: BP 132/81; PULSE 99; RESP 16; TEMP 37.1; O2SAT 95
--- NOTE | 2024-04-17 20:06 | PD.IMPROG ---
Documentation for date of: 04/17/24 Subjective Subjective Interval history: He said PEG tube checked no drainage Exam Vital Signs Temp Pulse Resp BP Pulse Ox O2 Del Method O2 Flow Rate 98.2 F 77 16 121/76 97 Nasal Cannula 5 04/17/24 16:00 04/17/24 16:00 04/17/24 16:00 04/17/24 16:00 04/17/24 16:00 04/17/24 16:00 04/14/24 16:00 Objective Labs 04/16/24 04:52 04/16/24 04:52 Impressions Impression: failure to thrive continue enteral hyperalimentation ABG Interpretation ABG results: 04/14/24 20:38 ABG pH 7.42 ABG pCO2 43 ABG pO2 79 L ABG HCO3 27 H ABG O2 Saturation 97 ABG Base Excess 2 Assessment & Plan A&P Narrative # Failure to thrive # Abnormal weight loss # Dementia Plan Placement of percutaneous endoscopic gastrostomy tube via fiberoptic esophagogastroduodenoscopy under intravenous moderate sedation Ancef 1 g IV piggyback on-call to endoscopy [facility] Thank you very much for the opportunity to participate in the care of this patient Time Spent With Patient Time: Total time spent is greater than 50% in coordination of care (as documented) at patient's floor/unit and/or counseling patient:
[2024-04-17] MEDS: oxyCODONE/APAP 5/325 TABLET 1 TAB PO (21:11)
[2024-04-18] VITALS: BP 107/66; PULSE 91; RESP 17; TEMP 36.6; O2SAT 97
[2024-04-18 04:00] VITALS: BP 110/68; PULSE 85; RESP 17; TEMP 36.2; O2SAT 96
[2024-04-18] MEDS: HEPARIN SOD INJ 5000 UNIT/ML VIAL SC ×2 (05:22→21:27)
[2024-04-18] MEDS: HYDROcodone/APAP 10/325 TAB PO ×2 (06:01→21:34)
[2024-04-18 07:55] VITALS: BP 117/66; PULSE 91; RESP 18; TEMP 36.6; O2SAT 96
--- NOTE | 2024-04-18 08:33 | PC.SS ---
Addendum entered by CHARLETTE Conroy 04/18/24 13:36: SS follow up: met at bed side with patient and patient's daughter, Delfina. Notified Delfina of the [employer] Appeal determination with [employer] agreeing with termination of Hospital Services. Notified her that Beneficiary Liability Starts on 04/19/2024. Delfina verbalized understanding. Delfina informs if no other accepting facility then she was agreeable with patient returning to [facility] tomorrow morning. Updated bed side nurse. Updated Shannan at [facility] to make aware. Addendum entered by CHARLETTE Conroy 04/18/24 13:08: SS follow up: [employer] Appeal determination is received. [employer] agrees with termination of Hospital Services. Beneficiary Liability Starts on 04/19/2024. Addendum entered by CHARLETTE Conroy 04/18/24 08:42: SS follow up: attempted contact with patient's daughter, Linda to discuss the discharge plan and provide update on [employer] Appeal status. Linda was unavailable and a voicemail was provided requesting a call back. Original Note: SS follow up: [employer] Appeal status remains in review. Pending final determination.
[2024-04-18] MEDS: THIAMINE 100 MG TABLET PO (08:54)
[2024-04-18] MEDS: VENLAFAXINE XR 37.5 MG CAPCR 150 MG PO (08:54)
[2024-04-18] MEDS: DIVALPROEX SOD EC 125 MG TABEC PO ×2 (08:54→21:27)
[2024-04-18] MEDS: ASPIRIN 81 MG CHEW PO (08:54)
[2024-04-18] MEDS: MULTIVITAMIN 15 ML UDC PO (08:54)
[2024-04-18] MEDS: MEMANTINE HCL 5 MG TABLET PO ×2 (08:54→21:27)
[2024-04-18] MEDS: QUEtiapine FUMARATE 25 MG TABLET 50 MG PO ×2 (08:54→21:27)
[2024-04-18] MEDS: PANTOPRAZOLE 40 MG TABLET PO (08:54)
--- NOTE | 2024-04-18 11:24 | ESDS_ITS ---
<Statement entered by Shannan Rachel MD - 04/23/24 16:27> I reviewed above note and agree with findings and plans. I have also personally examined the patient with medicine team and went over assessment and plan with medical team including inclusion internship and resident physician. Planned Discharge Date 04/18/24 DS: Providers Provider Date of admission: 04/14/24 13:25 Primary care physician: Darien Brewer MD Admitting Provider: Shannan Rachel MD Attending Provider on Admission: Shannan Rachel MD Consults: 04/12/24 13:47 Consult to Gastroenterology Stat Comment: Per G-tube placement Consulting Provider: Catrachita Frankel 04/12/24 15:34 Consult to Gastroenterology Stat Comment: Consulting Provider: Catrachita Frankel 04/12/24 15:57 Referral Speech Therapy Routine Comment: 04/12/24 19:22 Referral Registered Dietitian Routine Comment: PEG tube feed 04/12/24 20:12 Referral Registered Dietitian Routine Comment: 04/13/24 16:32 Referral Physical Therapy Routine Comment: Physician Instructions: 04/13/24 20:29 Referral Registered Dietitian Routine Comment: Instructions: MAY USE PEG TUBE FOR FEEDING NOW 04/14/24 08:47 Consult to Neurology / Tele-Neurology Routine Comment: Consulting Provider: Vladimir Perez Referral Speech Therapy Routine Comment: 04/15/24 07:59 Referral Physical Therapy Stat Comment: Please ascess nita as we will DC her today. Thanks Physician Instructions: Attending Provider on DC: Shannan Rachel MD Discharging Provider: Shannan Rachel MD DS: Diagnosis Problem List Completed Was Problem List Reviewed/Reconciled?: Yes Hospital Course Hospital Course Hospital course: This is a 79-year-old female with PMHx of advanced vascular dementia, HTN, nonambulatory, denting from SNF for failure to thrive and decreased oral intake. Admitted for FOT. She underwent PEG tube placement with GI. During the stay, patient had an episode of aphasia and worsening mentation for which a stroke alert was called. Head CT and CTA head/neck did not show any acute pathology including bleed or hemorrhage or vessel occlusion. MRI was not performed secondary to implanted neurostimulation device. Repeat CT head was also negative for acute pathology. Neurology was following who suggested TIA versus progression of her baseline dementia. No continued medical intervention or ANTIPLATELET therapy is indicated at this time. She is back to baseline. Passed swallow eval, and tolerating oral intake. Patient had an episode of aspiration pneumonia for which he completed 3 days of UNASYN. Patient medically cleared to discharge from the hospitalist standpoint. Currently had appealed discharge. Currently pending SNF placement. PATIENT INSTRUCTIONS: Follow-up with PCP within 1-2 weeks of discharge. Follow-up with neurology, Dr. Perez, within 1-2 weeks of discharge. Return to Emergency Room if symptoms persist, worsen, or new symptoms develop. Continue taking home medications as prescribed by your doctor. You may continue with oral fluids, oral medications as tolerated. Continue feeding through PEG tube use and instructions below: * Water flushes 25 ml/hr (or per MD). * Thiamine 100mg/day for 7 days; provide first dose at least 30 minutes before starting nutrition. * Multivitamins/Minerals. * Continue tube feed with goal rate of 60ml/hr x 24 hrs. ADMISSION DIAGNOSES: TIA Aphasia Failure to thrive Protein caloric malnutrition Cachexia Electrolyte abnormalities Hypotension Lactic acidosis (resolved) Hypernatremia (resolved) Tachycardia (resolved) Advanced vascular dementia Allergic rhinitis GERD Patient case was discussed with attending, Dr. Shannan Rachel MD and my senior resident Dr. Weston MD, PGY2 Rafael Myers MD PGY1 Senior Resident Attestation: I discussed with and supervised the inclusion internship physician involved in the care of this patient. I personally saw and examined the patient and discussed the assessment and plan with the entire medicine team, including my attending. I agree with the discharge plan as documented above. Kwesi Ontiveros MD PGY2 Internal Medicine Time Spent with Patient Time attestation: Total time spent providing and/or coordinating discharge services: Greater than 35 minutes. Exam Vital Signs Temp Pulse Resp BP Pulse Ox O2 Del Method O2 Flow Rate 97.9 F 91 18 117/66 96 Room Air 5 04/18/24 07:55 04/18/24 07:55 04/18/24 07:55 04/18/24 07:55 04/18/24 07:55 04/18/24 07:55 04/14/24 16:00 Narrative Exam GENERAL * Frail, cachectic, generally weak generally female, appears in mild distress HEENT * NCAT.?SENA. Moist oral mucosa. Patent Nares NECK * Supple, nontender, no thyromegaly, no meningismus, no JVD, no step offs CHEST * RRR, no m/g/r * CTAB, no w/r/r. Symmetrical chest rise. No intercostal subcostal retraction * Atraumatic, nontender, no crepitus, symmetrical expansion. ABDOMEN * Soft, flat, nontender. No guarding/rebound tenderness/masses. * Bowel sounds presents * PEG tube in place, and intact. No erythema or discharge around stoma. EXTREMITIES * Nontender, no cyanosis, no edema * No edema/cyanosis.? SKIN * Warm, dry, decreased skin turgor. NEUROMUSCULAR * No lumbar or midline, no CVA, no paraspinal muscle spasm or tenderness. * Moves all 4 extremities well, with full ROM and good CSM. * No focal neurologic deficits. PSYCHIATRY * Mentation waxing and wanning,cooperative Discharge Plan Plan Patient Disposition: Xfer Skilled Nsg Fac (SNF) Care Plan Goals: Please follow-up with your PCP within 1 week of discharge, please get electrolyte panel done -Continue with all medicines as prescribed before -No antihypertensive medications -Recommended to return back to emergency department if there is any significant issue with your PEG tube Trophic feeds of Jevity 1.2 at 20 ml/hr via PEG tube by pump. Advance 10 ml every 8 hrs to goal rate of 60 ml/hr x 24 hrs. If no IV fluids, water flushes of 25 ml/hr (or per MD). Provides: 1728 kcal, 80 g prot, 1162 ml free water, 1440 ml total volume Thiamine 100mg/day for 7 days; provide first dose at least 30 minutes before starting nutrition. Multivitamins/Minerals. Prescriptions/Referrals Prescriptions/Med Rec: New multivitamin with minerals Liquid 10 ml feeding tube QDAY Qty: 237 0RF thiamine HCl (vitamin B1) 100 mg tablet 100 mg feeding tube QDAY Qty: 14 0RF Continued divalproex [Depakote] 125 mg Tablet,Delayed Release (Dr/Ec) 125 mg PO BID oxycodone-acetaminophen 5-325 mg Tablet 1 tab PO Q8H PRN (Reason: Pain (Scale Score 7-10)) docusate sodium 100 mg Capsule 100 mg PO QDAY memantine 5 mg Tablet 5 mg PO BID venlafaxine [Effexor XR] 150 mg Capsule,Extended Release 24hr 150 mg PO QDAY thiamine HCl (vitamin B1) 100 mg Tablet 200 mg PO QDAY melatonin 3 mg Tablet 3 mg PO HS PRN (Reason: Insomnia) ferrous sulfate 324 mg (65 mg iron) Tablet,Delayed Release (Dr/Ec) 324 mg PO QDAY calcium carbonate-vitamin D3 [Oyster Shell + D3] 250 mg-3.125 mcg (125 unit) Tablet 1 tab PO QDAY cholecalciferol (vitamin D3) 25 mcg (1,000 unit) Tablet 50 mcg PO QDAY ondansetron HCl 4 mg Tablet 4 mg PO Q6H PRN (Reason: Nausea) acetaminophen 325 mg Tablet 650 mg PO Q8H PRN (Reason: Pain (Scale Score 4-6)) quetiapine 100 mg tablet 50 mg PO BID fluticasone propionate 50 mcg/actuation [place],Suspension 1 spray INTRANASAL DAILY Rx Instructions: administer into each nostril Referrals: Darien Brewer MD [Primary Care Provider] - Patient/Caregiver Discharge Instructions Discharge Activity: activity as tolerated Education Materials: Understanding PEG Tube Feeding Print Language: Sinhala Stand Alone Forms: Jody Award Info., Patient Portal Info Letter Discharge Order Discharge Orders: Discharge (Routine); Ordered 04/16/24 Ordered By: Fabi Mclean Quality Discharge Quality Measures VTE prophylaxis
[2024-04-18 11:36] VITALS: BP 99/64; PULSE 101; RESP 17; TEMP 36.2; O2SAT 95
[2024-04-18 16:00] VITALS: BP 106/82; PULSE 110; RESP 18; TEMP 36.2; O2SAT 96
[2024-04-18 20:00] VITALS: BP 139/78; PULSE 104; RESP 19; TEMP 36.9; O2SAT 97
--- NOTE | 2024-04-18 20:20 | ESPR_ITS ---
Documentation for date of: 04/18/24 Subjective Subjective Interval history: Patient evaluated PEG tube in place Exam Vital Signs Temp Pulse Resp BP Pulse Ox O2 Del Method O2 Flow Rate 97.2 F 110 H 18 106/82 96 Room Air 5 04/18/24 16:00 04/18/24 16:00 04/18/24 16:00 04/18/24 16:00 04/18/24 16:00 04/18/24 16:00 04/14/24 16:00 Objective Labs 04/16/24 04:52 04/16/24 04:52 Impressions Impression: # Failure to thrive requiring PEG placement PEG site looks good continue current management ABG Interpretation ABG results: 04/14/24 20:38 ABG pH 7.42 ABG pCO2 43 ABG pO2 79 L ABG HCO3 27 H ABG O2 Saturation 97 ABG Base Excess 2 Assessment & Plan A&P Narrative # Failure to thrive # Abnormal weight loss # Dementia Plan Placement of percutaneous endoscopic gastrostomy tube via fiberoptic esophagogastroduodenoscopy under intravenous moderate sedation Ancef 1 g IV piggyback on-call to endoscopy N.p.o. at midnight [facility] Thank you very much for the opportunity to participate in the care of this patient Time Spent With Patient Time: Total time spent is greater than 50% in coordination of care (as documented) at patient's floor/unit and/or counseling patient:
--- NOTE | 2024-04-18 23:00 | ESPR_ITS ---
Documentation for date of: 04/18/24 Subjective Subjective Interval history: Seen in [facility] with her daughter at the bedside. Significant improvement noted with continuation of tube feeding. She is able to communicate very well. Exam - Neurology Vital Signs Temp Pulse Resp BP Pulse Ox O2 Del Method O2 Flow Rate 98.4 F 104 H 19 139/78 H 97 Room Air 5 04/18/24 20:00 04/18/24 20:00 04/18/24 20:00 04/18/24 20:00 04/18/24 20:00 04/18/24 20:00 04/14/24 16:00 Narrative Exam GENERAL APPEARANCE: Well-developed, thin built white female in no acute distress HEENT: Normocephalic, atraumatic, extraocular movements intact. Pupils: Equal reacting to light and accommodation NECK: Supple, no JVD or bruits. CARDIOVASULAR: Heart: S1, S2 heard, regular without S3-S4 or murmur no rubs or gallops. LUNGS/CHEST: Clear to auscultation bilaterally. No rails, rhonchi, or wheezing. Normal inspection. ABDOMEN: Soft, nontender, with normal bowel sounds. No pulsatile masses. No rebound, rigidity, or guarding. Normal inspection and palpation. EXTREMITIES: Normal inspection and palpation. No edema, clubbing or cyanosis. SKIN: Warm and dry without rashes. Normal inspection. MUSCULOSKELETAL: No cervical, thoracic, lumbar or midline bony tenderness. Normal inspection. NEURO: Alert, awake and oriented x3. Cranial nerves: II through XII grossly intact. Speech and language: Normal with no dysarthria or dysphasia. Motor system: Tone and bulk: Normal: Strength: Significant weakness and spasticity in both lower extremities; No pronator drift noted. Plantar reflex: Downgoing bilaterally. Sensory system: Intact to all modalities of sensation bilaterally. Coordination: Intact to [id number] test bilaterally. No ataxia, no dysmetria, or dysdiadochokinesia noted. No intention tremors noted. Gait: Not able to test secondary to spastic lower extremity weakness, no signs of meningeal irritation noted. PSYCHIATRIC: Normal mood and affect. Significantly impaired recent memory from baseline dementia Objective Labs 04/16/24 04:52 04/16/24 04:52 ABG Interpretation ABG results: 04/14/24 20:38 ABG pH 7.42 ABG pCO2 43 ABG pO2 79 L ABG HCO3 27 H ABG O2 Saturation 97 ABG Base Excess 2 Assessment & Plan Assessment and plan (1) Adult failure to thrive: Status: Chronic Assessment and plan: Improving overall. back to baseline (2) Dementia: Status: Chronic Assessment and plan: Stable. encourage her to get passive range of motion in her LE with PT/RNA at the bedside upon discharge back to SNF Change Memantine to 10 mg bid, add Donepezil 5 mg at bedtime, Seroquel to 25 mg qhs hold off on Depakote continue with Effexor
[2024-04-19] VITALS: BP 105/78; PULSE 103; RESP 16; TEMP 37.1; O2SAT 96
[2024-04-19 04:00] VITALS: BP 107/59; PULSE 86; RESP 15; TEMP 36.9; O2SAT 98
[2024-04-19] MEDS: HEPARIN SOD INJ 5000 UNIT/ML VIAL SC (05:18)
[2024-04-19 07:45] VITALS: BP 99/59; PULSE 100; RESP 18; TEMP 36.3; O2SAT 94
--- NOTE | 2024-04-19 08:19 | PC.SS ---
Addendum entered by CHARLETTE Conroy 04/19/24 10:16: Contacted [facility], they provided ETA for 11am via [address]. Informed them patient's daughter wanted to ride with patient and suggested it would be fine during transportation. Bed side nurse and Shannan at [facility] aware. Addendum entered by CHARLETTE Conroy 04/19/24 09:30: Patient's daughter Delfina at bed side, she is aware the patient will return to [facility] today. Pending ETA for transport. Delfina is aware she can request a different facility once patient has return to [facility], pending accepting facility located. Delfina was explained the barriers with open bed, out of network and not contracted with insurance. Delfina verbalized understanding and informed she would like to ride with patient during transport if allowed to. Original Note: SS update: confirmed with Shannan at [facility] that patient has authorization to return to facility today. [facility] reference number for transport: [id number]. Pending ETA.
[2024-04-19] MEDS: PANTOPRAZOLE 40 MG TABLET PO (08:28)
[2024-04-19] MEDS: MULTIVITAMIN 15 ML UDC PO (08:28)
[2024-04-19] MEDS: THIAMINE 100 MG TABLET PO (08:28)
[2024-04-19] MEDS: DIVALPROEX SOD EC 125 MG TABEC PO (08:28)
[2024-04-19] MEDS: QUEtiapine FUMARATE 25 MG TABLET 50 MG PO (08:28)
[2024-04-19] MEDS: MEMANTINE HCL 5 MG TABLET PO (08:28)
[2024-04-19] MEDS: ASPIRIN 81 MG CHEW PO (08:29)
[2024-04-19] MEDS: VENLAFAXINE XR 37.5 MG CAPCR 150 MG PO (08:29)
--- NOTE | 2024-04-19 14:02 | ESDS_ITS ---
<Statement entered by Fabi Mclean MD - 04/19/24 14:10> I discussed with and supervised my co-resident involved in the care of this patient. I agree with the assessment and plan as documented above. Fabi Mclean,PGY-3 Disclaimer: Despite multiple revisions, due to the dictation software being used, the document below may not be free of grammatical errors including phonetic/typographic errors. However, this does not deter from our commitment to providing health care in the patient's best interest in mind. Planned Discharge Date 04/19/24 DS: Providers Provider Date of admission: 04/14/24 13:25 Primary care physician: Darien Brewer MD Admitting Provider: Shannan Rachel MD Attending Provider on Admission: Vicente Encarnacion MD Consults: 04/12/24 13:47 Consult to Gastroenterology Stat Comment: Per G-tube placement Consulting Provider: Catrachita Frankel 04/12/24 15:34 Consult to Gastroenterology Stat Comment: Consulting Provider: Catrachita Frankel 04/12/24 15:57 Referral Speech Therapy Routine Comment: 04/12/24 19:22 Referral Registered Dietitian Routine Comment: PEG tube feed 04/12/24 20:12 Referral Registered Dietitian Routine Comment: 04/13/24 16:32 Referral Physical Therapy Routine Comment: Physician Instructions: 04/13/24 20:29 Referral Registered Dietitian Routine Comment: Instructions: MAY USE PEG TUBE FOR FEEDING NOW 04/14/24 08:47 Consult to Neurology / Tele-Neurology Routine Comment: Consulting Provider: Vladimir Perez Referral Speech Therapy Routine Comment: 04/15/24 07:59 Referral Physical Therapy Stat Comment: Please ascess nita as we will DC her today. Thanks Physician Instructions: Attending Provider on DC: Vicente Encarnacion MD Discharging Provider: Vicente Encarnacion MD DS: Diagnosis Problem List Completed Was Problem List Reviewed/Reconciled?: Yes Hospital Course Hospital Course Hospital course: This is a 79-year-old female with PMHx of advanced vascular dementia, HTN, nonambulatory, denting from SNF for failure to thrive and decreased oral intake. Admitted for FOT. She underwent PEG tube placement with GI. During the stay, patient had an episode of aphasia and worsening mentation for which a stroke alert was called. Head CT and CTA head/neck did not show any acute pathology including bleed or hemorrhage or vessel occlusion. MRI was not performed secondary to implanted neurostimulation device. Repeat CT head was also negative for acute pathology. Neurology was following who suggested TIA versus progression of her baseline dementia. No continued medical intervention or ANTIPLATELET therapy is indicated at this time. She is back to baseline. Passed swallow eval, and tolerating oral intake. Patient had an episode of aspiration pneumonia for which he completed 3 days of UNASYN. Patient medically cleared to discharge from the hospitalist standpoint. Previously, family appealed discharge which was denied. Patient will go back to previous alf facility. PATIENT INSTRUCTIONS: Follow-up with PCP within 1-2 weeks of discharge. Follow-up with neurology, Dr. Perez, within 1-2 weeks of discharge. Return to Emergency Room if symptoms persist, worsen, or new symptoms develop. Continue taking home medications as prescribed by your doctor. You may continue with oral fluids, oral medications as tolerated. Continue feeding through PEG tube use and instructions below: * Water flushes 25 ml/hr (or per MD). * Thiamine 100mg/day for 7 days; provide first dose at least 30 minutes before starting nutrition. * Multivitamins/Minerals. * Continue tube feed with goal rate of 60ml/hr x 24 hrs. ADMISSION DIAGNOSES: TIA Aphasia Failure to thrive Protein caloric malnutrition Cachexia Electrolyte abnormalities Hypotension Lactic acidosis (resolved) Hypernatremia (resolved) Tachycardia (resolved) Advanced vascular dementia Allergic rhinitis GERD Patient case was discussed with attending, Dr. Shannan Rachel MD and my senior resident Dr. Weston MD, PGY2 Rafael Myers MD PGY1 Time Spent with Patient Time attestation: Total time spent providing and/or coordinating discharge services: Greater than 35 minutes. Exam Vital Signs Temp Pulse Resp BP Pulse Ox O2 Del Method O2 Flow Rate 97.4 F 100 18 99/59 L 94 L Room Air 5 04/19/24 07:45 04/19/24 07:45 04/19/24 07:45 04/19/24 07:45 04/19/24 07:45 04/19/24 07:45 04/14/24 16:00 Narrative Exam GENERAL * Frail, cachectic, generally weak generally female, appears in mild distress HEENT * NCAT.?SENA. Moist oral mucosa. Patent Nares NECK * Supple, nontender, no thyromegaly, no meningismus, no JVD, no step offs CHEST * RRR, no m/g/r * CTAB, no w/r/r. Symmetrical chest rise. No intercostal subcostal retraction * Atraumatic, nontender, no crepitus, symmetrical expansion. ABDOMEN * Soft, flat, nontender. No guarding/rebound tenderness/masses. * Bowel sounds presents * PEG tube in place, and intact. No erythema or discharge around stoma. EXTREMITIES * Nontender, no cyanosis, no edema * No edema/cyanosis.? SKIN * Warm, dry, decreased skin turgor. NEUROMUSCULAR * No lumbar or midline, no CVA, no paraspinal muscle spasm or tenderness. * Moves all 4 extremities well, with full ROM and good CSM. * No focal neurologic deficits. PSYCHIATRY * Mentation waxing and wanning,cooperative Discharge Plan Plan Patient Disposition: Xfer Skilled Nsg Fac (SNF) Care Plan Goals: Please follow-up with your PCP within 1 week of discharge, please get electrolyte panel done -Continue with all medicines as prescribed before -No antihypertensive medications -Recommended to return back to emergency department if there is any significant issue with your PEG tube Trophic feeds of Jevity 1.2 at 20 ml/hr via PEG tube by pump. Advance 10 ml every 8 hrs to goal rate of 60 ml/hr x 24 hrs. If no IV fluids, water flushes of 25 ml/hr (or per MD). Provides: 1728 kcal, 80 g prot, 1162 ml free water, 1440 ml total volume Thiamine 100mg/day for 7 days; provide first dose at least 30 minutes before starting nutrition. Multivitamins/Minerals. Prescriptions/Referrals Prescriptions/Med Rec: New multivitamin with minerals Liquid 10 ml feeding tube QDAY Qty: 237 0RF thiamine HCl (vitamin B1) 100 mg tablet 100 mg feeding tube QDAY Qty: 14 0RF Continued divalproex [Depakote] 125 mg Tablet,Delayed Release (Dr/Ec) 125 mg PO BID oxycodone-acetaminophen 5-325 mg Tablet 1 tab PO Q8H PRN (Reason: Pain (Scale Score 7-10)) docusate sodium 100 mg Capsule 100 mg PO QDAY memantine 5 mg Tablet 5 mg PO BID venlafaxine [Effexor XR] 150 mg Capsule,Extended Release 24hr 150 mg PO QDAY thiamine HCl (vitamin B1) 100 mg Tablet 200 mg PO QDAY melatonin 3 mg Tablet 3 mg PO HS PRN (Reason: Insomnia) ferrous sulfate 324 mg (65 mg iron) Tablet,Delayed Release (Dr/Ec) 324 mg PO QDAY calcium carbonate-vitamin D3 [Oyster Shell + D3] 250 mg-3.125 mcg (125 unit) Tablet 1 tab PO QDAY cholecalciferol (vitamin D3) 25 mcg (1,000 unit) Tablet 50 mcg PO QDAY ondansetron HCl 4 mg Tablet 4 mg PO Q6H PRN (Reason: Nausea) acetaminophen 325 mg Tablet 650 mg PO Q8H PRN (Reason: Pain (Scale Score 4-6)) quetiapine 100 mg tablet 50 mg PO BID fluticasone propionate 50 mcg/actuation [place],Suspension 1 spray INTRANASAL DAILY Rx Instructions: administer into each nostril Referrals: Darien Brewer MD [Primary Care Provider] - Patient/Caregiver Discharge Instructions Discharge Activity: activity as tolerated Education Materials: Understanding PEG Tube Feeding Print Language: Indonesian Stand Alone Forms: Truly Award Info., Patient Portal Info Letter Discharge Order Discharge Orders: Discharge (Routine); Ordered 04/19/24 Ordered By: Kwesi Ontiveros Quality Discharge Quality Measures VTE prophylaxis Attestestation MD Attestation I discussed with and supervised the resident physician who took care of this patient. I agree with the assessment and discharge plan as above. Contact PCP optimization engineer or facility medical personnel for any issues regarding her PEG tube.
== END 2024-04-19 11:20 | disposition skilled nursing facility (03) | DRG 69 ==
LOC: SERX 14:45 → SERHOLD 16:49 → S3EX 04-13 06:16 → SERHOLD 04-13 09:23 → S3EX 04-13 09:24 → S3NX 04-13 15:34
PROVIDERS: Nurse Practitioner Family; Specialist; Admitting Provider Internal Medicine; Emergency Provider Emergency Medicine; PCP Family Medicine; Visit Provider Internal Medicine
PROC: 0DH63UZ Insertion of Feeding Device into Stomach, Percutaneous Approach (ICD-10-PCS; CPT 43246; principal; 2024-04-13 20:00)
DX: G45.9 Transient cerebral ischemic attack, unspecified (principal); E43 Unspecified severe protein-calorie malnutrition; J69.0 Pneumonitis due to inhalation of food and vomit; K25.4 Chronic or unspecified gastric ulcer with hemorrhage; Z68.1 Body mass index [BMI] 19.9 or less, adult; R47.01 Aphasia; E87.0 Hyperosmolality and hypernatremia; E87.20 Acidosis, unspecified; E86.0 Dehydration; R62.7 Adult failure to thrive; F01.C0 Vascular dementia, severe, without behavioral disturbance, psychotic disturbance, mood disturbance, and anxiety; I10 Essential (primary) hypertension; R13.10 Dysphagia, unspecified; J30.9 Allergic rhinitis, unspecified; K21.9 Gastro-esophageal reflux disease without esophagitis; I95.9 Hypotension, unspecified
CPT/HCPCS: 36415; 36600; 70450; 70496; 70498; 71045; 80053; 81001; 82803; 83605; 83735; 84100; 84145; 85025; 85610; 85730; 87081; 92526; 92610; 93005; 93306; 96360; 96361; 97161; 99285; A4649; G0378; J0295; J0689; J1200; J1643; J2250; J2470; J3475; J3480; J7030; J7042; J7050; Q9967; A9270

== ENCOUNTER 2024-06-15 11:20 | Emergency (ER) | payer MEDICARE, MEDICAID, SELFPAY ==
[2024-06-15 11:21] VITALS: PULSE 115; RESP 18; O2SAT 96
[2024-06-15 11:26] VITALS: BP 128/88; PULSE 117; RESP 18; TEMP 36.4; O2SAT 95; BMI 19.3
--- NOTE | 2024-06-15 12:12 | XR_ITS ---
Examination: Abdomen AP single view Technique: AP portable supine abdomen, single view Exam date and time: June 15, 2024 1152 hours INDICATIONS: Abdominal pain nausea vomiting today FINDINGS: Mild colonic ileus Moderate air and stool throughout the colon No free air Thoracic epidural pain leads Severe osteopenia Kyphoplasty L1 Advanced right hip osteoarthritis IMPRESSION: Mild colonic ileus
--- NOTE | 2024-06-15 12:13 | XR_ITS ---
Examination: AP chest single view Technique one AP portable upright chest single view Exam date and time: June 15, 2024 1150 hours INDICATIONS: Chest pain vomiting today. FINDINGS: Normal heart size Epidural pain leads No aspiration pneumonia IMPRESSION: No aspiration pneumonia
--- NOTE | 2024-06-15 12:14 | PD.EDNV ---
Nausea/Vomit./Diarrhea-RME/HPI General Chief complaint: Nausea/Vomiting/Diarrhea Stated complaint: N/V Time Seen by Provider: 06/15/24 12:01 Arrival date/time: 06/15/24 11:20 RME / HPI RME / HPI Narrative: 79-year-old female patient came in for evaluation regarding vomiting. Onset of symptoms earlier today after tube feeding . Was giving bolus and after that there was vomiting. Currently patient is denying any vomiting denies any complaints. Patient was given Zofran by EMS. Related Data Home Medications ?Medication ?Instructions ?Recorded ?Confirmed fluticasone propionate 50 1 spray intranasal DAILY 10/01/22 04/13/24 mcg/actuation nasal spray,suspension quetiapine 100 mg tablet 50 mg PO BID 10/01/22 04/13/24 acetaminophen 325 mg tablet 650 mg PO Q8H PRN Pain (Scale 04/13/24 04/13/24 Score 4-6) calcium 250 mg (as 1 tab PO QDAY 04/13/24 04/13/24 carbonate)-vitamin D3 3.125 mcg (125 unit) tablet (Oyster Shell + D3) cholecalciferol (vitamin D3) 25 50 mcg PO QDAY 04/13/24 04/13/24 mcg (1,000 unit) tablet divalproex 125 mg tablet,delayed 125 mg PO BID 04/13/24 04/13/24 release (Depakote) docusate sodium 100 mg capsule 100 mg PO QDAY 04/13/24 04/13/24 ferrous sulfate 324 mg (65 mg 324 mg PO QDAY 04/13/24 04/13/24 iron) tablet,delayed release melatonin 3 mg tablet 3 mg PO HS PRN Insomnia 04/13/24 04/13/24 memantine 5 mg tablet 5 mg PO BID 04/13/24 04/13/24 ondansetron HCl 4 mg tablet 4 mg PO Q6H PRN Nausea 04/13/24 04/13/24 oxycodone-acetaminophen 5 mg-325 1 tab PO Q8H PRN Pain (Scale Score 04/13/24 04/13/24 mg tablet 7-10) thiamine HCl (vitamin B1) 100 mg 200 mg PO QDAY 04/13/24 04/13/24 tablet venlafaxine 150 mg 150 mg PO QDAY 04/13/24 04/13/24 capsule,extended release 24 hr (Effexor XR) Previous Rx's ?Medication ?Instructions ?Recorded multivitamin with minerals 10 ml feeding tube QDAY #237 mL 04/14/24 thiamine HCl (vitamin B1) 100 mg 100 mg feeding tube QDAY #14 tabs 04/14/24 tablet Allergies Allergy/AdvReac Type Severity Reaction Status Date / Time amitriptyline (From Elavil) Allergy Verified 10/22/23 16:29 fentanyl Allergy Verified 10/22/23 16:29 Review of Systems Review of Systems Narrative Review of Systems: Review of system reviewed and within normal limits except mentioned in HPI ED Exam Narrative Physical exam: VITAL SIGNS: Reviewed. GENERAL APPEARANCE: Alert and interactive, follows commands, no acute distress, HEAD AND FACE: Non-traumatic. ENT: PERRL, pink conjunctivitis, eyelid no trauma, Mucous membrane moist. NECK: Supple, nontender, no nuchal rigidity. CHEST: No tenderness, no crepitus, no paradoxical movement, no retractions. LUNGS: Clear, well ventilated, symmetric, no rales, no wheezing, no ronchi, no stridor, good breath sounds bilaterally. HEART: Regular rate, regular rhythm, no murmur, no gallops. ABDOMEN: Soft, positive bowel sounds, nondistended, no guarding, nontender, no rebound, no masses, tube feeding intact however I noticed that it was not clean on the insertion site RECTAL: Deferred. GENITAL: Deferred. NEUROLOGICAL: Gross motor function intact sensory function intact, Appropriate for age. MUSCULOSKELETAL: low back nontender, full range of motion. EXTREMITIES: Nontender, full range of motion. SKIN: Color pink, dry, no rash, no lacerations, no abrasions, no contusions. LYMPHATICS: Deferred. Course Quality Measures none Orders Category Date Time Status Straight [In and Out Catheter] X1 Care 06/15/24 12:12 Completed XR abdomen 1V Stat Exams 06/15/24 12:12 Completed XR abdomen 1V Stat Exams 06/15/24 16:39 Completed XR chest 1V Stat Exams 06/15/24 12:13 Completed CBC Stat Lab 06/15/24 13:15 Completed Comprehensive Metabolic Panel Stat Lab 06/15/24 13:15 Completed Lipase Stat Lab 06/15/24 13:15 Completed Partial Thromboplastin Time Stat Lab 06/15/24 13:15 Completed Urinalysis, C/S if Indicated Stat Lab 06/15/24 15:05 Completed Urine Culture Stat Lab 06/15/24 15:05 Received Sodium Chloride 0.9% 1000 ml [Ns] 1,000 ml Med 06/15/24 12:13 Discontinued IV 999 mls/hr Vital Signs Vital signs: Vital Signs Temperature 97.5 F 06/15/24 11:26 Pulse Rate 117 H 06/15/24 11:26 Respiratory Rate 18 06/15/24 11:26 Blood Pressure 128/88 H 06/15/24 11:26 Pulse Oximetry (%) 95 06/15/24 11:26 Oxygen Delivery Method Room Air 06/15/24 11:26 Nausea/Vomiting/Diarrhea [facility] Narrative [facility] Narrative:: 79-year-old female patient came in for evaluation regarding vomiting. Onset of symptoms earlier today after tube feeding . Was giving bolus and after that there was vomiting. Currently patient is denying any vomiting denies any complaints. Patient was given Zofran by EMS. Patient was given IV fluids in the emergency room. Patient's workup today all came back normal including G-tube placement check which is satisfactory in position per x-ray. I personally reviewed and interpreted the x-ray of this patient. There is no acute abnormalities found, no infiltrates no pneumothorax no hemothorax normal chest x-ray. Review of other structures was without significant abnormal findings also. I additionally reviewed the radiologist report and agree with the interpretation. No recurrence of vomiting noted in the emergency room. Patient data External records reviewed:: None Clinical information provided by:: patient and EMS Social determinants that could affect healthcare access:: none Patient has the following chronic illnesses:: Dementia, history of ischemic colitis, history of failure to thrive How is presenting disease/condition affected by chronic disease/condition?: exacerbated by Evaluation data The following diagnostics were reviewed and interpreted by me:: lab results and radiology exam(s) Lab and/or radiology exams considered but not ordered:: None Interpretation Summary: See results in MDM Medications / Prescriptions Medications / Prescriptions considered but not ordered:: None Medication administrations:: Medication Administration History Discontinued Medications Sodium Chloride (Ns) 1,000 mls @ 999 mls/hr IV .Q1H1M ONE Stop: 06/15/24 13:13 Last Admin: 06/15/24 13:17 Dose: 999 mls/hr Documented By: DARIUSZ IV fluids Consultations Consultation(s) initiated? (list below): No Diagnosis Nausea Differential Diagnosis: food poisoning, gastroenteritis, dehydration and other (Nausea and vomiting) Most likely diagnosis given after review of the tests above:: Stable Admission Indicated Admission indicated?: not indicated Admission Request Was there a request for admission?: No Disposition Plan Disposition Plan: Discharge Discharge Attestation Discharge Attestation: Patient condition: Stable Discharge Plan Plan Patient Disposition: HOME (Self Care) Disposition Comment: Questionable Prescriptions/Referrals Prescriptions/Med Rec: No Action divalproex [Depakote] 125 mg Tablet,Delayed Release (Dr/Ec) 125 mg PO BID oxycodone-acetaminophen 5-325 mg Tablet 1 tab PO Q8H PRN (Reason: Pain (Scale Score 7-10)) docusate sodium 100 mg Capsule 100 mg PO QDAY memantine 5 mg Tablet 5 mg PO BID venlafaxine [Effexor XR] 150 mg Capsule,Extended Release 24hr 150 mg PO QDAY thiamine HCl (vitamin B1) 100 mg Tablet 200 mg PO QDAY melatonin 3 mg Tablet 3 mg PO HS PRN (Reason: Insomnia) ferrous sulfate 324 mg (65 mg iron) Tablet,Delayed Release (Dr/Ec) 324 mg PO QDAY calcium carbonate-vitamin D3 [Oyster Shell + D3] 250 mg-3.125 mcg (125 unit) Tablet 1 tab PO QDAY cholecalciferol (vitamin D3) 25 mcg (1,000 unit) Tablet 50 mcg PO QDAY ondansetron HCl 4 mg Tablet 4 mg PO Q6H PRN (Reason: Nausea) acetaminophen 325 mg Tablet 650 mg PO Q8H PRN (Reason: Pain (Scale Score 4-6)) multivitamin with minerals Liquid 10 ml feeding tube QDAY Qty: 237 0RF thiamine HCl (vitamin B1) 100 mg tablet 100 mg feeding tube QDAY Qty: 14 0RF quetiapine 100 mg tablet 50 mg PO BID fluticasone propionate 50 mcg/actuation [place],Suspension 1 spray INTRANASAL DAILY Rx Instructions: administer into each nostril Referrals: No Primary/Family,Physician [Primary Care Provider] - In 1 week Problem List Clinical Impression: Nausea & vomiting Patient/Caregiver Discharge Instructions Discharge Activity: activity as tolerated Education Materials: Self-Care for Vomiting and Diarrhea Additional Instructions: Thank you for the opportunity for serving you today. You are stable for discharged . You are advised to: Follow-up with your PCP in 1 to 2 days Return to ED for worsening of symptoms Increase oral fluids Take Zofran or Reglan as needed for vomiting Print Language: Bermudian Stand Alone Forms: Jody Award Info., Patient Portal Info Letter PA/QUOTATION CHECKER Supervising Physician PA/REBECCA Supervising Physician: MD Selena
[2024-06-15] MEDS: SODIUM CHLORIDE 0.9% 1000 ML 1,000 ML 999 ML IV (13:17)
[2024-06-15 13:24] LABS: Basophils % (Auto) 0 % (0-2.5); Eosinophils # (Auto) 0.1 Thou/mm3 (0.0-0.5); Eosinophils % (Auto) 1 % (0-10); Hematocrit 48.3 % (36.0-46.0); Hemoglobin 15.6 g/dL (12.0-16.0); Immature Granulocytes % (Auto) 0 % (0-0); Immature Granulocytes Auto 0.04 Thou/mm3 (0.00-0.00); Lymphocytes # (Auto) 2.1 Thou/mm3 (1.0-4.8); Lymphocytes % (Auto) 15 % (10-50); Mean Corpuscular HGB Conc 32.3 g/dl (31.0-37.0); Mean Corpuscular Hemoglobin 29.9 pg (25.0-35.0); Mean Corpuscular Volume 93 fL (80-100); Monocytes # (Auto) 1.1 Thou/mm3 (0.0-0.8); Monocytes % (Auto) 7 % (0-12); Neutrophils # (Auto) 11.2 Thou/mm3 (1.8-7.7); Neutrophils % (Auto) 77 % (37-80); Nucleated Red Blood Cell % 0 /100 WBC (0); Platelet Count 296 Thou/mm3 (140-440); RDW Standard Deviation 45.7 fL (36.4-46.3); Red Blood Count 5.22 Miln/mm3 (4.00-5.20); White Blood Count 14.6 Thou/mm3 (3.6-11.0)
[2024-06-15 13:38] LABS: Partial Thromboplastin Time 25.7 Seconds (22.0-36.0)
[2024-06-15 13:42] LABS: Alanine Aminotransferase 21 U/L (10-49); Albumin, Serum 4.2 gm/dL (3.4-4.8); Albumin/Globulin Ratio 1.1 (1.2-2.2); Alkaline Phosphatase 84 U/L (46-116); Anion Gap 10 (7-16); Aspartate Amino Transferase 19 U/L (0-34); BUN/Creatinine Ratio 21 Ratio (12-20); Bilirubin,Total 0.5 mg/dL (0.3-1.2); Blood Urea Nitrogen 17 mg/dL (9-23); Calcium 9.5 mg/dL (8.3-10.6); Calcium (Corrected) 9.5 mg/dL (8.5-10.1); Carbon Dioxide 30.3 mMol/L (20.0-31.0); Chloride 101 mMol/L (98-107); Creatinine (Component) 0.8 mg/dL (0.6-1.3); Estimated Creatinine Clearance 50.6 mL/min (>60); Globulin 3.8 gm/dL (2.3-3.5); Glucose 86 mg/dL (74-106); Lipase 57 U/L (12-53); Osmolality,Calculated 281 (275-295); Potassium 4.1 mMol/L (3.4-5.1); Sodium 141 mMol/L (136-145); eGFR > 60 See Note
[2024-06-15 14:35] VITALS: BP 132/88; PULSE 113; RESP 14; TEMP 37; O2SAT 96
[2024-06-15 15:15] LABS: Collection Type, Urine Clean Catch; Squamous Epithelial Cell,Urine 0 /hpf (0-5)
[2024-06-15 15:29] LABS: Amorphous Crystals,Urine Present (Absent); Bilirubin,Urine Negative (Negative); Blood,Urine Negative (Negative); Clarity,Urine Turbid (Clear/Hazy); Color,Urine Yellow (Lt Yel-Yel); Glucose, Urine Negative (Negative); Hyaline Casts,Urine < 1 /hpf (0-1); Ketones,Urine Negative (Negative); Leukocyte Esterase,Urine Negative (Negative); Nitrite,Urine Negative (Negative); Protein,Urine 1+ (Neg - Trace); RBC,Urine 31 /hpf (0-3); Specific Gravity,Urine 1.026 (1.001-1.035); WBC,Urine 11 /hpf (0-5)
[2024-06-15 15:31] LABS: Culture Indicated,Urine Yes
--- NOTE | 2024-06-15 16:39 | XR_ITS ---
Examination: Abdomen AP single view Technique: AP portable supine abdomen, single view Exam date and time: June 15, 2024 1615 hours INDICATIONS: Unknown position feeding tube. FINDINGS: Opacification of feeding tube and small bowel loops No abnormal extravasation of contrast material present IMPRESSION: Satisfactory position feeding tube
[2024-06-15 17:16] VITALS: BP 108/72; PULSE 110; RESP 15; TEMP 36.8; O2SAT 96
--- NOTE | 2024-06-15 18:48 | PC.NURSE ---
Report given to Zahra at [facility]
[2024-06-15 19:55] VITALS: BP 119/86; PULSE 117; RESP 19; TEMP 36.7; O2SAT 98
== END 2024-06-15 21:05 | disposition home or self-care (01) ==
PROVIDERS: Nurse Practitioner Family; Emergency Provider Emergency Medicine
DX: R11.2 Nausea with vomiting, unspecified (principal); R07.9 Chest pain, unspecified; R10.9 Unspecified abdominal pain; Z93.1 Gastrostomy status
CPT/HCPCS: 51701; 36415; 71045; 74018; 80053; 81001; 83690; 85025; 85730; 87086; 99284; J7030